=== PATIENT | female | born 1945 | race Caucasian/White ===

== ENCOUNTER 2018-01-03 17:07 | Inpatient (IN) ==
[2018-01-03] MEDS ORDERED: cloNIDine HCl 0.1 MG TABLET PO PRN (19:37)
[2018-01-03] MEDS: *HR* OxyCODONE/APAP 5/325 TABLET PO SCH (21:26)
[2018-01-03] MEDS: Gabapentin 300 MG CAPSULE PO SCH (21:26)
[2018-01-03] MEDS: hydrALAZINE 25 MG TABLET PO SCH (21:26)
[2018-01-03] MEDS: Lisinopril 20 MG TABLET PO SCH (21:26)
[2018-01-03] MEDS: *HR* Nateglinide 120 MG TABLET PO SCH (21:27)
[2018-01-03] MEDS ORDERED: Insulin DETEMIR 100 UNIT/ML per UNIT SQ ONE (22:15)
[2018-01-03] MEDS: *HR* OxyCODONE Immed Rel 5 MG TABLET PO PRN (22:25)
[2018-01-04] MEDS: *HR* OxyCODONE/APAP 5/325 TABLET PO SCH ×5 (01:14→20:59)
[2018-01-04] MEDS: Ondansetron ODT 4 MG TAB.RAPDIS PO SCH ×3 (01:14→16:35)
[2018-01-04] MEDS: hydrALAZINE 25 MG TABLET PO SCH ×2 (08:17→21:00)
[2018-01-04] MEDS: Cyanocobalamin (B-12) 1,000 MCG TABLET PO SCH (08:18)
[2018-01-04] MEDS: Cholecalciferol (D-3) 1,000 UNIT TABLET PO SCH (08:18)
[2018-01-04] MEDS: Ascorbic Acid 500 MG TABLET PO SCH (08:18)
[2018-01-04] MEDS: *HR* Nateglinide 120 MG TABLET PO SCH ×3 (08:18→16:35)
[2018-01-04] MEDS: Lisinopril 20 MG TABLET PO SCH ×2 (08:19→21:00)
[2018-01-04] MEDS: Gabapentin 300 MG CAPSULE PO SCH ×2 (08:19→21:00)
[2018-01-04] MEDS: Fluticasone Propionate Nasal 50 MCG/SPRAY BOTTLE NS SCH (08:20)
[2018-01-04] MEDS ORDERED: DOXYCYCLINE HYCLATE 50 MG PO SCH (09:00)
[2018-01-04] MEDS: Tiotropium 18 MCG inhalation IH SCH (10:01)
[2018-01-04] MEDS: Beclomethasone 80mcg MDI IH SCH ×2 (10:01→22:30)
[2018-01-04] MEDS: *HR* OxyCODONE Immed Rel 5 MG TABLET PO PRN (10:17)
--- NOTE | 2018-01-04 12:26 | Internal Med History&Physical ---
Date of Encounter: 01/04/18 Time of Encounter: 11:50 Assessment and Plan (1) Lumbar stenosis Current visit: Yes Status: Acute Status post L4-5 interbody fusion. PT and OT evaluations with ongoing intervention have been ordered. Qualifiers: Neurogenic claudication status: unspecified Qualified Code(s): M48.061 - Spinal stenosis, lumbar region without neurogenic claudication (2) CKD (chronic kidney disease) stage 3, GFR 30-59 ml/min Current visit: Yes Status: Chronic Monitor renal indices as needed. (3) Hypertension Current visit: Yes Status: Chronic Continue chlorthalidone, clonidine, hydralazine, lisinopril, and Bystolic. Qualifiers: Hypertension type: essential hypertension Qualified Code(s): I10 - Essential (primary) hypertension (4) DM type 2 (diabetes mellitus, type 2) Current visit: Yes Status: Chronic Hemoglobin A1c was 7.1% on 12/21/2017. Continue Levemir/Lantus and Starlix. Qualifiers: Diabetes mellitus terminal operator insulin use: with terminal operator use Diabetes mellitus complication status: with kidney complications Diabetes mellitus complication detail: with chronic kidney disease Chronic kidney disease stage : stage 3 (moderate) Qualified Code(s): E11.22 - Type 2 diabetes mellitus with diabetic chronic kidney disease; N18.3 - Chronic kidney disease, stage 3 ( moderate); Z79.4 - MCFP (current) use of insulin Internal Medicine - H&P: HPI Chief complaint: Back surgery Admitted From: Hospital to Hospital Transfer Plans for Post Hospital Care: Home History of present illness: Ms. Dye is a 72 year old female who was transferred to [facility] swing bed after a December 29 [facility] hospitalization for posterior lumbar interbody fusion L4- L5. Her postop course was unremarkable and she was admitted for rehabilitation therapy prior to returning home. Musculoskeletal history is significant for left humerus fracture with repair 2009. She denies gout or other bone joint or muscle disorders. Past Med Surg Social Fam HX - Past Medical History Medical history: arthritis, CHF, CVA, diabetes, GERD, hypertension, kidney stones, migraine, RA, renal disease, other Additional medical history: stroke,cerebralvascular disease,osteoarthritis, vision problems,legally blind,low back pain,disc herniation; Stage 3 Kidney failure Psychiatric history: anxiety, depression - Past Surgical History Surgical History: appendectomy, cholecystectomy, hysterectomy Additional surgical history: gastric bypass,small intestine removed,EGD/ colonoscopy,carpal tunnel bilateral,eye surgery bilateral - Social History Smoking Status: Former smoker Smokeless Tobacco Status: No Alcohol use: none Drug use: none - Family History Sister Living Status: Hx Family Cancer: Yes (Mets) Father Living Status: Hx Family Cancer: Yes (Liver) Hx Family Endocrine Disorder: Yes (DM) Mother Living Status: Hx Family Cardiac Disorders: Yes (AK) Hx Family Endocrine Disorder: Yes (DM) Internal Medicine - H&P: Meds Gabapentin [Neurontin] 600 mg PO BID 08/11/15 [History] Insulin Glargine,Hum.rec.anlog [Lantus Solostar] 10 unit SQ HS 08/11/15 [History ] Oxycodone HCl/Acetaminophen [Percocet 5-325 mg Tablet] 1 tab PO 5XD 08/11/15 [ History] Ascorbic Acid [Vitamin C] 1,000 mg PO DAILY 01/16/16 [History] Calcitriol 0.5 mcg PO DAILY 01/16/16 [History] Cholecalciferol (D-3) [Vitamin D] 5,000 unit PO DAILY 01/16/16 [History] Cyanocobalamin (Vitamin B-12) [Vitamin B12] 1,000 mcg PO DAILY 01/16/16 [History ] Escitalopram [Lexapro] 20 mg PO DAILY 01/16/16 [History] Esomeprazole Magnesium [Nexium] 40 mg PO DAILY 01/16/16 [History] Lisinopril [Zestril] 40 mg PO BID 01/16/16 [History] Nebivolol HCl [Bystolic] 20 mg PO DAILY 01/16/16 [History] Tiotropium [Spiriva] 1 cap IH DAILY 01/16/16 [History] Ferrous Sulfate [Iron] 325 mg PO DAILY 01/19/16 [History] Lipase/Protease/Amylase [Creon Dr 12,000 Units Capsule] 1 each PO TID 01/19/16 [ History] Albuterol Sulfate [Proair Hfa] 1 puff IH PRN PRN 06/23/17 [History] DULoxetine [Cymbalta] 60 mg PO DAILY 06/23/17 [History] Doxycycline Hyclate [Morgidox] 50 mg PO DAILY 06/23/17 [History] Fluticasone Propionate Nasal [Flonase] 1 spray DAILY 06/23/17 [History] Nateglinide [Starlix] 60 mg PO TID 06/23/17 [History] Ondansetron ODT [Zofran ODT] 4 mg PO Q8HR #10 tab.rapdis 06/23/17 [Rx] Potassium Chloride [Klor-Con] 20 meq PO DAILY 06/23/17 [History] cloNIDine HCl [CloNIDine HCl] 0.1 mg PO BID PRN 06/23/17 [History] hydrALAZINE [HydrALAZINE] 50 mg PO BID 06/23/17 [History] Aspirin/Dipyridamole [Aggrenox 25 mg-200 mg Capsule] 1 cap PO BID 12/30/17 [ History] Chlorthalidone 25 mg PO DAILY 12/30/17 [History] Mometasone Furoate [Asmanex] 220 mcg IH DAILY 12/30/17 [History] Polyethylene Glycol 3350 [MiraLAX] 17 gm PO DAILY 12/30/17 [History] OxyCODONE Immed Rel [Roxicodone 5 MG] 5 mg PO Q4HR PRN 01/03/18 [History] 3 Allergy/AdvReac Type Severity Reaction Status Date / Time atorvastatin [From Lipitor] AdvReac See Verified 12/21/17 10:27 Comments nifedipine [From Procardia] AdvReac See Verified 12/21/17 10:27 Comments All Systems PM: A 10-system review of systems was performed and is negative for pertinent findings except as documented above in the HPI. Review of systems: Gen.: She states her weight has been stable the past few months Cardiovascular: She has history of hypertension. She reports a diagnosis of heart failure. An echocardiogram 10/26/2017 showed LVEF of 60-65%. The interventricular septum and posterior wall thickness measurements were 1.20 and 1.30 cm respectively. E/A ratio was 1.0. No significant valvular abnormalities were noted. She denies DVT or pulmonary embolus. She does not get chest pain on exertion. Respiratory: She smoked from age 17 until entering the hospital last week. She smoked up to one pack per day. She denies PFTs. She is on Spiriva and Pro Air but was unaware of a diagnosis of COPD or asthma. She does not use home oxygen. GI: She has had cholecystectomy. She reports chronic diarrhea for several months to years. She had gastric bypass surgery 2005. She is on Creon for presumed exocrine pancreatic insufficiency although she denies awareness of that diagnosis. She reports her most recent colonoscopy was 2015. She denies other disorders of her liver or exocrine pancreas. : She has chronic kidney disease stage III and follows with a security lead. She denies other kidney or bladder disorders. Neurologic: She reports several strokes with most recent one in 1999 which left her with "arm weakness". She is able to walk with a cane or walker at home. She denies seizures. She has subtotal blindness. Endocrine: She was diagnosed with DM 2 in 1982. She denies thyroid disease or hyperlipidemia. Hematology/oncology: She has history of anemia but denies internal malignancies or other blood disorders. Psychiatric: She has anxiety and depression but denies other mental health issues. Musko skeletal: As per history of present illness - Constitutional Vitals: Temp Pulse Resp BP Pulse Ox 98.8 F 78 16 157/73 89 01/04/18 07:17 01/04/18 07:17 01/04/18 10:01 01/04/18 07:17 01/04/18 10:01 Exam: Gen.: She is a well-developed well-nourished female sitting in a chair at bedside who appears in no acute distress HEENT: Head is atraumatic and normocephalic. Eyes: EOMI. There is no scleral icterus. Mouth: Mucosa is moist. Neck: Supple and nontender. There is no thyromegaly or adenopathy noted. Heart: Regular without murmurs gallops or ectopics Lungs: No wheezes or crackles are heard. Abdomen: Soft and nontender. No masses or guarding are noted. Extremities: There is no cyanosis edema or clubbing noted. Dorsalis pedis and posterior tibial pulses are trace palpable bilaterally. Her feet are warm to touch. Neurologic: Mental status: She is talkative and a good historian. Cranial nerves: Smile is symmetric. Forehead wrinkles bilaterally. Tongue protrudes midline. EOMI. Motor: There is no pronator drift. Cerebellar: Finger to nose is intact bilaterally. Skin: Warm and dry
[2018-01-04] MEDS: Insulin DETEMIR 100 UNIT/ML X5UNITS SQ SCH (20:59)
[2018-01-04] MEDS: Lactobacillus 1 EACH CAP.SPRINK PO SCH (20:59)
[2018-01-05] MEDS: *HR* OxyCODONE/APAP 5/325 TABLET PO SCH ×5 (01:57→21:26)
[2018-01-05] MEDS: Ondansetron ODT 4 MG TAB.RAPDIS PO SCH ×3 (01:58→17:54)
[2018-01-05] MEDS: *HR* OxyCODONE Immed Rel 5 MG TABLET PO PRN ×2 (06:29→10:29)
[2018-01-05 06:49] LABS: Basophils % 0.4 %; Eosinophils # 0.4 K/mcL (0.0-0.6); Eosinophils % 5.4 %; Hematocrit 38.1 % (35.3-44.9); Hemoglobin 12.3 g/dL (11.5-15.4); Immature Granulocytes % 0.4 % (0-4); Lymphocytes # 2.1 K/mcL (0.6-4.6); Lymphocytes % 28.3 %; Mean Corpuscular HGB Conc 32.3 g/dL (31.6-35.5); Mean Corpuscular Hemoglobin 33.2 pg (28.0-33.3); Mean Platelet Volume 9.9 fL (9.4-12.4); Monocytes # 0.7 K/mcL (0.0-1.3); Monocytes % 9.5 %; Neutrophils # 4.2 K/mcL (1.6-8.9); Platelet Count 207 K/mcL (140-400); Red Cell Distribution Width 12.5 % (11.5-14.5)
[2018-01-05 07:14] LABS: Calcium 9.1 mg/dL (8.6-10.3); Potassium 3.7 mEq/L (3.5-5.1)
[2018-01-05] MEDS: Fluticasone Propionate Nasal 50 MCG/SPRAY BOTTLE NS SCH (08:34)
[2018-01-05] MEDS: *HR* Nateglinide 120 MG TABLET PO SCH ×3 (08:36→17:55)
[2018-01-05] MEDS: Cyanocobalamin (B-12) 1,000 MCG TABLET PO SCH (08:37)
[2018-01-05] MEDS: Lactobacillus 1 EACH CAP.SPRINK PO SCH ×2 (08:38→21:26)
[2018-01-05] MEDS: Gabapentin 300 MG CAPSULE PO SCH ×2 (08:40→21:26)
[2018-01-05] MEDS: Cholecalciferol (D-3) 1,000 UNIT TABLET PO SCH (08:40)
[2018-01-05] MEDS: hydrALAZINE 25 MG TABLET PO SCH ×2 (08:40→21:26)
[2018-01-05] MEDS: Lisinopril 20 MG TABLET PO SCH ×2 (08:40→21:26)
[2018-01-05] MEDS: Ascorbic Acid 500 MG TABLET PO SCH (08:40)
[2018-01-05] MEDS: Beclomethasone 80mcg MDI IH SCH ×2 (10:30→21:51)
[2018-01-05] MEDS: Tiotropium 18 MCG inhalation IH SCH (10:32)
[2018-01-05 13:00] LABS: Thyroid Stimulating Hormone 0.93 mcIU/mL (0.340-5.600)
--- NOTE | 2018-01-05 17:56 | Internal Med Progress Note ---
Date of Encounter: 01/05/18 Time of Encounter: 17:48 - Assessment and plan (1) Lumbar stenosis Current Visit: Yes Status: Acute Assessment and plan: January 05. Continue therapy interventions. Will order scheduled oral Tylenol and BenGay/Lidoderm topically Qualifiers: Neurogenic claudication status: unspecified Qualified Code(s): M48.061 - Spinal stenosis, lumbar region without neurogenic claudication (2) CKD (chronic kidney disease) stage 3, GFR 30-59 ml/min Current Visit: Yes Status: Chronic Assessment and plan: January 05. Monitor renal indices. (3) Hypertension Current Visit: Yes Status: Chronic Assessment and plan: January 05. Continue chlorthalidone, clonidine, hydralazine, lisinopril, and Bystolic Qualifiers: Hypertension type: essential hypertension Qualified Code(s): I10 - Essential (primary) hypertension (4) DM type 2 (diabetes mellitus, type 2) Current Visit: Yes Status: Chronic Assessment and plan: January 05. Hemoglobin A1c was 7.1% on 12/21/2017. Continue Levemir/Lantus and Starlix Qualifiers: Diabetes mellitus halfway insulin use: with halfway use Diabetes mellitus complication status: with kidney complications Diabetes mellitus complication detail: with chronic kidney disease Chronic kidney disease stage : stage 3 (moderate) Qualified Code(s): E11.22 - Type 2 diabetes mellitus with diabetic chronic kidney disease; N18.3 - Chronic kidney disease, stage 3 ( moderate); Z79.4 - oysterman (current) use of insulin - Subjective Interval history: January 05. She has no new complaints. - Constitutional Vitals: Temp Pulse Resp BP Pulse Ox 98.6 F 86 16 148/86 98 01/05/18 07:07 01/05/18 07:07 01/05/18 10:32 01/05/18 07:07 01/05/18 10:32 Exam: She is resting comfortably in bed and appears in no acute distress. Her affect is overall cheerful. I reviewed her medications and lab results. Internal Medicine: Result - Labs CBC & Chem 7: 01/05/18 06:30 01/05/18 06:30 Labs: Short CBC 01/05/18 Range/Units 06:30 WBC 7.5 (4.3-11.1) K/mcL Hgb 12.3 D (11.5-15.4) g/dL Hct 38.1 (35.3-44.9) % Plt Count 207 (140-400) K/mcL Neutrophils # 4.2 (1.6-8.9) K/mcL BMP 01/05/18 06:30 Sodium 136 Potassium 3.7 Chloride 98 Carbon Dioxide 33 H BUN 33 H Creatinine 1.42 H Glucose 167 H Calcium 9.1 Consult Discharge Plan - Plan Referrals: Zahra Alvarez, SILK SCREEN REPAIRER [Primary Care Provider] - 1 week
[2018-01-05] MEDS: Insulin DETEMIR 100 UNIT/ML X5UNITS SQ SCH (21:26)
[2018-01-05] MEDS: Methyl Salicylate/Menthol 28 GM TUBE TP SCH (21:26)
[2018-01-06] MEDS: Ondansetron ODT 4 MG TAB.RAPDIS PO SCH ×3 (03:32→15:29)
[2018-01-06] MEDS: *HR* OxyCODONE/APAP 5/325 TABLET PO SCH ×5 (03:37→20:16)
[2018-01-06] MEDS: *HR* OxyCODONE Immed Rel 5 MG TABLET PO PRN ×3 (05:19→18:10)
[2018-01-06] MEDS: Gabapentin 300 MG CAPSULE PO SCH ×2 (08:48→20:16)
[2018-01-06] MEDS: Cholecalciferol (D-3) 1,000 UNIT TABLET PO SCH (08:52)
[2018-01-06] MEDS: Lisinopril 20 MG TABLET PO SCH ×2 (08:52→20:16)
[2018-01-06] MEDS: hydrALAZINE 25 MG TABLET PO SCH ×2 (08:53→20:15)
[2018-01-06] MEDS: Ascorbic Acid 500 MG TABLET PO SCH (08:53)
[2018-01-06] MEDS: Lactobacillus 1 EACH CAP.SPRINK PO SCH ×2 (08:53→20:15)
[2018-01-06] MEDS: Fluticasone Propionate Nasal 50 MCG/SPRAY BOTTLE NS SCH (08:54)
[2018-01-06] MEDS: Cyanocobalamin (B-12) 1,000 MCG TABLET PO SCH (08:54)
[2018-01-06] MEDS: *HR* Nateglinide 120 MG TABLET PO SCH ×3 (08:54→15:29)
[2018-01-06] MEDS: Methyl Salicylate/Menthol 28 GM TUBE TP SCH (08:55)
[2018-01-06] MEDS: Beclomethasone 80mcg MDI IH SCH ×2 (09:51→22:22)
[2018-01-06] MEDS: Tiotropium 18 MCG inhalation IH SCH (09:51)
[2018-01-06] MEDS ORDERED: Ondansetron ODT 4 MG TAB.RAPDIS PO PRN (16:48)
[2018-01-06] MEDS: Insulin DETEMIR 100 UNIT/ML X5UNITS SQ SCH (20:42)
[2018-01-07] MEDS: *HR* OxyCODONE/APAP 5/325 TABLET PO SCH ×5 (03:42→22:34)
[2018-01-07] MEDS: *HR* OxyCODONE Immed Rel 5 MG TABLET PO PRN ×2 (03:44→22:19)
[2018-01-07] MEDS: *HR* Nateglinide 120 MG TABLET PO SCH ×3 (09:07→16:48)
[2018-01-07] MEDS: Gabapentin 300 MG CAPSULE PO SCH ×2 (09:09→22:19)
[2018-01-07] MEDS: Ascorbic Acid 500 MG TABLET PO SCH (09:09)
[2018-01-07] MEDS: Lactobacillus 1 EACH CAP.SPRINK PO SCH (09:10)
[2018-01-07] MEDS: hydrALAZINE 25 MG TABLET PO SCH ×2 (09:10→22:19)
[2018-01-07] MEDS: Cholecalciferol (D-3) 1,000 UNIT TABLET PO SCH (09:11)
[2018-01-07] MEDS: Lisinopril 20 MG TABLET PO SCH ×2 (09:11→22:19)
[2018-01-07] MEDS: Cyanocobalamin (B-12) 1,000 MCG TABLET PO SCH (09:14)
[2018-01-07] MEDS: Methyl Salicylate/Menthol 28 GM TUBE TP SCH (09:15)
[2018-01-07] MEDS: Fluticasone Propionate Nasal 50 MCG/SPRAY BOTTLE NS SCH (09:15)
[2018-01-07] MEDS: Tiotropium 18 MCG inhalation IH SCH (09:27)
[2018-01-07] MEDS: Beclomethasone 80mcg MDI IH SCH ×2 (09:27→21:31)
--- NOTE | 2018-01-07 14:30 | Internal Med Progress Note ---
Date of Encounter: 01/07/18 Time of Encounter: 14:24 - Assessment and plan (1) Lumbar stenosis Current Visit: Yes Status: Acute Assessment and plan: January 05. Continue therapy interventions. Will order scheduled oral Tylenol and BenGay/Lidoderm topically Qualifiers: Neurogenic claudication status: unspecified Qualified Code(s): M48.061 - Spinal stenosis, lumbar region without neurogenic claudication (2) CKD (chronic kidney disease) stage 3, GFR 30-59 ml/min Current Visit: Yes Status: Chronic Assessment and plan: January 05. Monitor renal indices. (3) Hypertension Current Visit: Yes Status: Chronic Assessment and plan: January 05. Continue chlorthalidone, clonidine, hydralazine, lisinopril, and Bystolic Qualifiers: Hypertension type: essential hypertension Qualified Code(s): I10 - Essential (primary) hypertension (4) DM type 2 (diabetes mellitus, type 2) Current Visit: Yes Status: Chronic Assessment and plan: January 05. Hemoglobin A1c was 7.1% on 12/21/2017. Continue Levemir/Lantus and Starlix January 07. Accu-Chek stable. Continue present regimen Qualifiers: Diabetes mellitus roasterman insulin use: with roasterman use Diabetes mellitus complication status: with kidney complications Diabetes mellitus complication detail: with chronic kidney disease Chronic kidney disease stage : stage 3 (moderate) Qualified Code(s): E11.22 - Type 2 diabetes mellitus with diabetic chronic kidney disease; N18.3 - Chronic kidney disease, stage 3 ( moderate); Z79.4 - technician terminal and repeater (current) use of insulin - Subjective Interval history: January 05. She has no new complaints. January 07. She has no new complaints and feels better. - Constitutional Vitals: Temp Pulse Resp BP Pulse Ox 98.6 F 86 16 180/85 94 01/07/18 07:42 01/07/18 07:42 01/07/18 09:28 01/07/18 07:42 01/07/18 09:28 Exam: She is lying in bed resting comfortably. Her affect is bright and cheerful. I reviewed her medications and lab results. Internal Medicine: Result - Labs CBC & Chem 7: 01/05/18 06:30 01/05/18 06:30 Consult Discharge Plan - Plan Referrals: Zahra Alvarez, VENUS [Primary Care Provider] - 01/19/18 4:00 pm
[2018-01-07] MEDS: Insulin DETEMIR 100 UNIT/ML X5UNITS SQ SCH (22:22)
[2018-01-08] MEDS: *HR* OxyCODONE/APAP 5/325 TABLET PO SCH ×5 (00:51→22:21)
[2018-01-08] MEDS: Ascorbic Acid 500 MG TABLET PO SCH (07:49)
[2018-01-08] MEDS: Lisinopril 20 MG TABLET PO SCH ×2 (07:50→22:21)
[2018-01-08] MEDS: *HR* Nateglinide 120 MG TABLET PO SCH ×3 (07:51→16:35)
[2018-01-08] MEDS: Cyanocobalamin (B-12) 1,000 MCG TABLET PO SCH (07:53)
[2018-01-08] MEDS: hydrALAZINE 25 MG TABLET PO SCH ×2 (07:55→22:23)
[2018-01-08] MEDS: Cholecalciferol (D-3) 1,000 UNIT TABLET PO SCH (07:55)
[2018-01-08] MEDS: Fluticasone Propionate Nasal 50 MCG/SPRAY BOTTLE NS SCH (08:00)
[2018-01-08] MEDS: Methyl Salicylate/Menthol 28 GM TUBE TP SCH (08:00)
[2018-01-08] MEDS: Gabapentin 300 MG CAPSULE PO SCH ×2 (08:02→22:22)
[2018-01-08] MEDS: *HR* OxyCODONE Immed Rel 5 MG TABLET PO PRN (09:51)
[2018-01-08] MEDS: Beclomethasone 80mcg MDI IH SCH ×2 (10:01→22:27)
[2018-01-08] MEDS: Tiotropium 18 MCG inhalation IH SCH (10:02)
[2018-01-08] MEDS ORDERED: *HR* FentaNYL PATCH 12 MCG PATCH TD ONE (13:36)
[2018-01-08] MEDS: Insulin DETEMIR 100 UNIT/ML X5UNITS SQ SCH (22:27)
[2018-01-09] MEDS: *HR* OxyCODONE/APAP 5/325 TABLET PO SCH ×6 (00:02→23:36)
[2018-01-09] MEDS: *HR* OxyCODONE Immed Rel 5 MG TABLET PO PRN ×3 (01:25→10:33)
[2018-01-09] MEDS: Fluticasone Propionate Nasal 50 MCG/SPRAY BOTTLE NS SCH (08:37)
[2018-01-09] MEDS: Cyanocobalamin (B-12) 1,000 MCG TABLET PO SCH (08:38)
[2018-01-09] MEDS: *HR* Nateglinide 120 MG TABLET PO SCH ×3 (08:40→17:00)
[2018-01-09] MEDS: Gabapentin 300 MG CAPSULE PO SCH ×3 (08:41→20:20)
[2018-01-09] MEDS: Ascorbic Acid 500 MG TABLET PO SCH (08:42)
[2018-01-09] MEDS: Cholecalciferol (D-3) 1,000 UNIT TABLET PO SCH (08:42)
[2018-01-09] MEDS: Lisinopril 20 MG TABLET PO SCH ×2 (08:42→20:21)
[2018-01-09] MEDS: hydrALAZINE 25 MG TABLET PO SCH ×2 (08:42→20:21)
[2018-01-09] MEDS: Methyl Salicylate/Menthol 28 GM TUBE TP SCH (08:52)
[2018-01-09] MEDS: Beclomethasone 80mcg MDI IH SCH ×2 (10:39→22:35)
[2018-01-09] MEDS: Tiotropium 18 MCG inhalation IH SCH (10:42)
--- NOTE | 2018-01-09 12:04 | Internal Med Progress Note ---
Date of Encounter: 01/09/18 Time of Encounter: 11:55 - Assessment and plan (1) Lumbar stenosis Current Visit: Yes Status: Acute Assessment and plan: January 05. Continue therapy interventions. Will order scheduled oral Tylenol and BenGay/Lidoderm topically January 09. Increase Cymbalta and gabapentin. Continue Duragesic, scheduled Tylenol, and prn analgesics also. Qualifiers: Neurogenic claudication status: unspecified Qualified Code(s): M48.061 - Spinal stenosis, lumbar region without neurogenic claudication (2) CKD (chronic kidney disease) stage 3, GFR 30-59 ml/min Current Visit: Yes Status: Chronic Assessment and plan: January 05. Monitor renal indices. (3) Hypertension Current Visit: Yes Status: Chronic Assessment and plan: January 05. Continue chlorthalidone, clonidine, hydralazine, lisinopril, and Bystolic Qualifiers: Hypertension type: essential hypertension Qualified Code(s): I10 - Essential (primary) hypertension (4) DM type 2 (diabetes mellitus, type 2) Current Visit: Yes Status: Chronic Assessment and plan: January 05. Hemoglobin A1c was 7.1% on 12/21/2017. Continue Levemir/Lantus and Starlix January 07. Accu-Chek stable. Continue present regimen Qualifiers: Diabetes mellitus alf insulin use: with terminal press operator use Diabetes mellitus complication status: with kidney complications Diabetes mellitus complication detail: with chronic kidney disease Chronic kidney disease stage : stage 3 (moderate) Qualified Code(s): E11.22 - Type 2 diabetes mellitus with diabetic chronic kidney disease; N18.3 - Chronic kidney disease, stage 3 ( moderate); Z79.4 - half-way (current) use of insulin (5) Insomnia Current Visit: Yes Status: Acute Assessment and plan: January 09. Increased analgesics as per above. Add trazodone. Qualifiers: Insomnia type: unspecified Qualified Code(s): G47.00 - Insomnia, unspecified - Subjective Interval history: January 05. She has no new complaints. January 07. She has no new complaints and feels better. January 09. She complains of pain in her low back and legs. She states she is not sleeping well at night. - Constitutional Vitals: Temp Pulse Resp BP Pulse Ox 98.5 F 66 18 200/83 96 01/09/18 07:09 01/09/18 07:09 01/09/18 10:39 01/09/18 07:09 01/09/18 10:39 Exam: She is sitting on the side of bed eating lunch and appears in no acute distress. Her affect is overall cheerful. I reviewed her medications and lab results. Internal Medicine: Result - Labs CBC & Chem 7: 01/05/18 06:30 01/05/18 06:30 Consult Discharge Plan - Plan Referrals: Zahra Alvarez CNP [Primary Care Provider] - 01/19/18 4:00 pm
[2018-01-09] MEDS: *HR* FentaNYL PATCH 12 MCG PATCH TD SCH (12:54)
[2018-01-09] MEDS: traZODone 50 MG TABLET PO SCH (20:21)
[2018-01-09] MEDS: Insulin DETEMIR 100 UNIT/ML X5UNITS SQ SCH (20:24)
[2018-01-10] MEDS: Gabapentin 300 MG CAPSULE PO SCH ×3 (04:38→21:28)
[2018-01-10 06:20] LABS: Basophils % 0.3 %; Eosinophils # 0.3 K/mcL (0.0-0.6); Eosinophils % 4.8 %; Hematocrit 35.1 % (35.3-44.9); Hemoglobin 11.5 g/dL (11.5-15.4); Immature Granulocytes % 0.3 % (0-4); Lymphocytes # 1.5 K/mcL (0.6-4.6); Lymphocytes % 26.3 %; Mean Corpuscular HGB Conc 32.8 g/dL (31.6-35.5); Mean Corpuscular Hemoglobin 33.6 pg (28.0-33.3); Mean Corpuscular Volume 102.6 fL (83.0-100.0); Mean Platelet Volume 10.1 fL (9.4-12.4); Monocytes # 0.4 K/mcL (0.0-1.3); Monocytes % 7.6 %; Neutrophils # 3.5 K/mcL (1.6-8.9); Platelet Count 205 K/mcL (140-400); Red Blood Count 3.42 M/mcL (3.82-4.97); Red Cell Distribution Width 12.4 % (11.5-14.5); Segmented Neutrophils % 60.7 %
[2018-01-10 06:36] LABS: Calcium 9.2 mg/dL (8.6-10.3); Potassium 3.7 mEq/L (3.5-5.1)
[2018-01-10] MEDS: Cyanocobalamin (B-12) 1,000 MCG TABLET PO SCH (09:25)
[2018-01-10] MEDS: Ascorbic Acid 500 MG TABLET PO SCH (09:25)
[2018-01-10] MEDS: Fluticasone Propionate Nasal 50 MCG/SPRAY BOTTLE NS SCH (09:25)
[2018-01-10] MEDS: *HR* OxyCODONE/APAP 5/325 TABLET PO SCH ×4 (09:25→20:00)
[2018-01-10] MEDS: hydrALAZINE 25 MG TABLET PO SCH ×2 (09:25→21:28)
[2018-01-10] MEDS: *HR* Nateglinide 120 MG TABLET PO SCH ×3 (09:25→17:15)
[2018-01-10] MEDS: Lisinopril 20 MG TABLET PO SCH ×2 (09:25→21:28)
[2018-01-10] MEDS: Cholecalciferol (D-3) 1,000 UNIT TABLET PO SCH (09:25)
[2018-01-10] MEDS: Tiotropium 18 MCG inhalation IH SCH (09:27)
[2018-01-10] MEDS: Beclomethasone 80mcg MDI IH SCH ×2 (09:27→22:17)
[2018-01-10 09:38] LABS: Folate 10.8 ng/mL (3.0-16.0)
[2018-01-10] MEDS: Methyl Salicylate/Menthol 28 GM TUBE TP SCH (09:44)
[2018-01-10] MEDS: *HR* OxyCODONE Immed Rel 5 MG TABLET PO PRN ×2 (11:07→21:27)
[2018-01-10] MEDS: traZODone 50 MG TABLET PO SCH (21:27)
[2018-01-10] MEDS: Insulin DETEMIR 100 UNIT/ML X5UNITS SQ SCH (21:32)
[2018-01-11] MEDS: *HR* OxyCODONE/APAP 5/325 TABLET PO SCH ×5 (01:27→21:09)
[2018-01-11] MEDS: *HR* OxyCODONE Immed Rel 5 MG TABLET PO PRN ×2 (04:07→10:06)
[2018-01-11] MEDS: Gabapentin 300 MG CAPSULE PO SCH ×3 (06:27→21:08)
[2018-01-11] MEDS: *HR* Nateglinide 120 MG TABLET PO SCH ×3 (08:41→16:24)
[2018-01-11] MEDS: hydrALAZINE 25 MG TABLET PO SCH ×2 (08:41→21:08)
[2018-01-11] MEDS: Ascorbic Acid 500 MG TABLET PO SCH (08:41)
[2018-01-11] MEDS: Lisinopril 20 MG TABLET PO SCH ×2 (08:42→21:08)
[2018-01-11] MEDS: Cyanocobalamin (B-12) 1,000 MCG TABLET PO SCH (08:43)
[2018-01-11] MEDS: Cholecalciferol (D-3) 1,000 UNIT TABLET PO SCH (08:43)
[2018-01-11] MEDS: Fluticasone Propionate Nasal 50 MCG/SPRAY BOTTLE NS SCH (08:43)
[2018-01-11] MEDS: Beclomethasone 80mcg MDI IH SCH ×2 (09:49→22:02)
[2018-01-11] MEDS: Tiotropium 18 MCG inhalation IH SCH (09:49)
[2018-01-11] MEDS: Methyl Salicylate/Menthol 28 GM TUBE TP SCH (10:09)
[2018-01-11] MEDS: traZODone 50 MG TABLET PO SCH (21:08)
[2018-01-11] MEDS: Insulin DETEMIR 100 UNIT/ML X5UNITS SQ SCH (21:09)
[2018-01-12] MEDS: *HR* OxyCODONE/APAP 5/325 TABLET PO SCH ×3 (00:52→11:41)
[2018-01-12 06:27] VITALS: BP 157/71
[2018-01-12] MEDS: Gabapentin 300 MG CAPSULE PO SCH ×2 (06:30→11:40)
[2018-01-12] MEDS: Lisinopril 20 MG TABLET PO SCH (08:35)
[2018-01-12] MEDS: Cyanocobalamin (B-12) 1,000 MCG TABLET PO SCH (08:38)
[2018-01-12] MEDS: Cholecalciferol (D-3) 1,000 UNIT TABLET PO SCH (08:38)
[2018-01-12] MEDS: Ascorbic Acid 500 MG TABLET PO SCH (08:38)
[2018-01-12] MEDS: *HR* Nateglinide 120 MG TABLET PO SCH ×2 (08:38→11:41)
[2018-01-12] MEDS: hydrALAZINE 25 MG TABLET PO SCH (08:39)
[2018-01-12] MEDS: Methyl Salicylate/Menthol 28 GM TUBE TP SCH (08:48)
[2018-01-12] MEDS: Fluticasone Propionate Nasal 50 MCG/SPRAY BOTTLE NS SCH (08:48)
[2018-01-12] MEDS: Beclomethasone 80mcg MDI IH SCH (10:41)
[2018-01-12] MEDS: Tiotropium 18 MCG inhalation IH SCH (10:41)
[2018-01-12] MEDS: *HR* FentaNYL PATCH 12 MCG PATCH TD SCH (11:42)
--- NOTE | 2018-01-12 12:49 | Discharge Summary ---
Date of Encounter: 01/12/18 Time of Encounter: 12:00 - Discharge Diagnosis (1) Lumbar stenosis Priority: Primary Status: Acute Qualifiers: Neurogenic claudication status: unspecified Qualified Code(s): M48.061 - Spinal stenosis, lumbar region without neurogenic claudication (2) CKD (chronic kidney disease) stage 3, GFR 30-59 ml/min Priority: Secondary Status: Chronic (3) Hypertension Priority: Secondary Status: Chronic Qualifiers: Hypertension type: essential hypertension Qualified Code(s): I10 - Essential (primary) hypertension (4) DM type 2 (diabetes mellitus, type 2) Priority: Secondary Status: Chronic Qualifiers: Diabetes mellitus ferry terminal agent insulin use: with ferry terminal agent use Diabetes mellitus complication status: with kidney complications Diabetes mellitus complication detail: with chronic kidney disease Chronic kidney disease stage : stage 3 (moderate) Qualified Code(s): E11.22 - Type 2 diabetes mellitus with diabetic chronic kidney disease; N18.3 - Chronic kidney disease, stage 3 ( moderate); Z79.4 - intermodal customer service (current) use of insulin (5) Insomnia Priority: Secondary Status: Acute Qualifiers: Insomnia type: unspecified Qualified Code(s): G47.00 - Insomnia, unspecified Hospital course: Ms. Dye is a 72 year old female who was transferred to [facility] swing bed after a December 29 [facility] hospitalization for posterior lumbar interbody fusion L4- L5. Her postop course was unremarkable and she was admitted for rehabilitation therapy prior to returning home. Initial orders were written by the discharging physicians at [facility]. I saw her on January 04 and performed a swing bed history and physical. Physical therapy and occupational therapy evaluations with ongoing intervention were done. She made satisfactory progress. She will continue with home health services at discharge. She will follow with her PCP within 1 week and her spine surgeon as directed. - Time Spent with Patient Total time spent providing and/or coordinating discharge services: - Discharge Medications Prescriptions: Lidocaine Patch [Lidoderm 5% patch] 1 each TP DAILY #7 adh..patch Methyl Salicylate/Menthol [Bengay] 1 appl TP DAILY #1 tube traZODone [TraZODone] 50 mg PO HS #30 tablet Home Medications: Gabapentin [Neurontin] 600 mg PO BID 08/11/15 [History] Insulin Glargine,Hum.rec.anlog [Lantus Solostar] 10 unit SQ HS 08/11/15 [History ] Ascorbic Acid [Vitamin C] 1,000 mg PO DAILY 01/16/16 [History] Calcitriol 0.5 mcg PO DAILY 01/16/16 [History] Cholecalciferol (D-3) [Vitamin D] 5,000 unit PO DAILY 01/16/16 [History] Cyanocobalamin (Vitamin B-12) [Vitamin B12] 1,000 mcg PO DAILY 01/16/16 [History ] Escitalopram [Lexapro] 20 mg PO DAILY 01/16/16 [History] Esomeprazole Magnesium [Nexium] 40 mg PO DAILY 01/16/16 [History] Lisinopril [Zestril] 40 mg PO BID 01/16/16 [History] Nebivolol HCl [Bystolic] 20 mg PO DAILY 01/16/16 [History] Tiotropium [Spiriva] 1 cap IH DAILY 01/16/16 [History] Ferrous Sulfate [Iron] 325 mg PO DAILY 01/19/16 [History] Lipase/Protease/Amylase [Creon Dr 12,000 Units Capsule] 1 each PO TID 01/19/16 [ History] Albuterol Sulfate [Proair Hfa] 1 puff IH PRN PRN 06/23/17 [History] DULoxetine [Cymbalta] 60 mg PO DAILY 06/23/17 [History] Doxycycline Hyclate [Morgidox] 50 mg PO DAILY 06/23/17 [History] Fluticasone Propionate Nasal [Flonase] 1 spray DAILY 06/23/17 [History] Nateglinide [Starlix] 60 mg PO TID 06/23/17 [History] Ondansetron ODT [Zofran ODT] 4 mg PO Q8HR #10 tab.rapdis 06/23/17 [Rx] Potassium Chloride [Klor-Con] 20 meq PO DAILY 06/23/17 [History] cloNIDine HCl [CloNIDine HCl] 0.1 mg PO BID PRN 06/23/17 [History] hydrALAZINE [HydrALAZINE] 50 mg PO BID 06/23/17 [History] Aspirin/Dipyridamole [Aggrenox 25 mg-200 mg Capsule] 1 cap PO BID 12/30/17 [ History] Chlorthalidone 25 mg PO DAILY 12/30/17 [History] Mometasone Furoate [Asmanex] 220 mcg IH DAILY 12/30/17 [History] Polyethylene Glycol 3350 [MiraLAX] 17 gm PO DAILY 12/30/17 [History] OxyCODONE Immed Rel [Roxicodone 5 MG] 5 mg PO Q4HR PRN 01/03/18 [History] Lidocaine Patch [Lidoderm 5% patch] 1 each TP DAILY #7 adh..patch 01/12/18 [Rx] Methyl Salicylate/Menthol [Bengay] 1 appl TP DAILY #1 tube 01/12/18 [Rx] traZODone [TraZODone] 50 mg PO HS #30 tablet 01/12/18 [Rx] Allergies/Adverse Reactions: 3 Allergy/AdvReac Type Severity Reaction Status Date / Time atorvastatin [From Lipitor] AdvReac See Verified 12/21/17 10:27 Comments nifedipine [From Procardia] AdvReac See Verified 12/21/17 10:27 Comments Date of admission: 01/03/18 19:17 Primary care physician: Zahra Alvarez CNP Consults: 01/03/18 19:50 Consult to Occupational Therapy [CONS] Routine Comment: Evaluate, develop and implement POC Reason for Consult: Evaluate, develop and implement POC; Post-Back surgery Does patient have active BEDREST order?: No Is patient medically & hemodynamically stable?: Yes 01/03/18 19:51 Consult to Physical Therapy [CONS] Routine Comment: Evaluate, develop and implement POC Reason for Consult: Evaluate, develop and implement POC; Post-Back surgery Does patient have active BEDREST order?: No Is patient medically & hemodynamically stable?: Yes Patient assessed for mobility or mobilized this visit?: No - Constitutional Vitals: Temp Pulse Resp BP Pulse Ox 98.9 F 62 16 157/71 94 01/12/18 06:25 01/12/18 06:25 01/12/18 06:25 01/12/18 06:25 01/12/18 06:25 - Patient Status Disposition: Home Health Service - Discharge Instructions Follow Up With: Zahra Alvarez CNP [Primary Care Provider] - 01/19/18 4:00 pm - Diet and Activity Activity: as per physical therapy Diet: diabetic diet
--- NOTE | 2018-01-12 12:53 | Physician Discharge Referral ---
Home Health/Hosp Referral Info Transfer to: Home Health Attending Provider: Joshua Provider in Charge Post Discharge: PCP Rafael) - Diagnosis (1) Lumbar stenosis Priority: Primary Status: Acute (2) CKD (chronic kidney disease) stage 3, GFR 30-59 ml/min Priority: Secondary Status: Chronic (3) Hypertension Priority: Secondary Status: Chronic (4) DM type 2 (diabetes mellitus, type 2) Priority: Secondary Status: Chronic (5) Insomnia Priority: Secondary Status: Acute - Respiratory Orders Smoking Cessation: Smoking cessation has been advised. For more information, call the [place] Tobacco Quit Line at 6-141-FSGL-NOW. - Diet/Nutrition Diet/Nutrition Orders: No Concentrated Sweets - Activity Activity Orders: Walker - Services Needed Following services are medically necessary services: Nursing, Home Health Aide, Physical Therapy, Occupational Therapy - Transfer Medications Prescriptions: Lidocaine Patch [Lidoderm 5% patch] 1 each TP DAILY #7 adh..patch Methyl Salicylate/Menthol [Bengay] 1 appl TP DAILY #1 tube traZODone [TraZODone] 50 mg PO HS #30 tablet Home Medications: Gabapentin [Neurontin] 600 mg PO BID 08/11/15 [History] Insulin Glargine,Hum.rec.anlog [Lantus Solostar] 10 unit SQ HS 08/11/15 [History ] Ascorbic Acid [Vitamin C] 1,000 mg PO DAILY 01/16/16 [History] Calcitriol 0.5 mcg PO DAILY 01/16/16 [History] Cholecalciferol (D-3) [Vitamin D] 5,000 unit PO DAILY 01/16/16 [History] Cyanocobalamin (Vitamin B-12) [Vitamin B12] 1,000 mcg PO DAILY 01/16/16 [History ] Escitalopram [Lexapro] 20 mg PO DAILY 01/16/16 [History] Esomeprazole Magnesium [Nexium] 40 mg PO DAILY 01/16/16 [History] Lisinopril [Zestril] 40 mg PO BID 01/16/16 [History] Nebivolol HCl [Bystolic] 20 mg PO DAILY 01/16/16 [History] Tiotropium [Spiriva] 1 cap IH DAILY 01/16/16 [History] Ferrous Sulfate [Iron] 325 mg PO DAILY 01/19/16 [History] Lipase/Protease/Amylase [Edda Hoffman 12,000 Units Capsule] 1 each PO TID 01/19/16 [ History] Albuterol Sulfate [Proair Hfa] 1 puff IH PRN PRN 06/23/17 [History] DULoxetine [Cymbalta] 60 mg PO DAILY 06/23/17 [History] Doxycycline Hyclate [Morgidox] 50 mg PO DAILY 06/23/17 [History] Fluticasone Propionate Nasal [Flonase] 1 spray DAILY 06/23/17 [History] Nateglinide [Starlix] 60 mg PO TID 06/23/17 [History] Ondansetron ODT [Zofran ODT] 4 mg PO Q8HR #10 tab.rapdis 06/23/17 [Rx] Potassium Chloride [Klor-Con] 20 meq PO DAILY 06/23/17 [History] cloNIDine HCl [CloNIDine HCl] 0.1 mg PO BID PRN 06/23/17 [History] hydrALAZINE [HydrALAZINE] 50 mg PO BID 06/23/17 [History] Aspirin/Dipyridamole [Aggrenox 25 mg-200 mg Capsule] 1 cap PO BID 12/30/17 [ History] Chlorthalidone 25 mg PO DAILY 12/30/17 [History] Mometasone Furoate [Asmanex] 220 mcg IH DAILY 12/30/17 [History] Polyethylene Glycol 3350 [MiraLAX] 17 gm PO DAILY 12/30/17 [History] OxyCODONE Immed Rel [Roxicodone 5 MG] 5 mg PO Q4HR PRN 01/03/18 [History] Lidocaine Patch [Lidoderm 5% patch] 1 each TP DAILY #7 adh..patch 01/12/18 [Rx] Methyl Salicylate/Menthol [Bengay] 1 appl TP DAILY #1 tube 01/12/18 [Rx] traZODone [TraZODone] 50 mg PO HS #30 tablet 01/12/18 [Rx] Allergies/Adverse Reactions: 3 Allergy/AdvReac Type Severity Reaction Status Date / Time atorvastatin [From Lipitor] AdvReac See Verified 12/21/17 10:27 Comments nifedipine [From Procardia] AdvReac See Verified 12/21/17 10:27 Comments Certification: Further, I certify that my clinical findings support that this patient is homebound (i.e. absences from home require considerable and taxing effort and are for medical reasons or [facility] services or infrequently or short duration when for other reasons) because: Homebound Reason: Leaving home requires considerable and taxing effort due to condition (Spinal fusion surgery) Attestation: My signature below is to certify that this patient is under my care and that I, or nurse practitioner, or a physician's retirement assistant working with me, has a face-to -face encounter with this patient.
== END 2018-01-12 13:31 | disposition home health service (06) | DRG 949 ==
LOC: INPPIK 19:17
PROVIDERS: ADMIT Internal Medicine; ATTEND Internal Medicine

== ENCOUNTER 2019-07-24 14:21 | Inpatient (IN) ==
[2019-07-24 14:44] LABS: Basophils % 0.1 %; Eosinophils # 0.2 K/mcL (0.0-0.6); Hematocrit 43.8 % (35.3-44.9); Hemoglobin 14.7 g/dL (11.5-15.4); Immature Granulocytes % 0.4 % (0-4); Lymphocytes # 1.8 K/mcL (0.6-4.6); Lymphocytes % 21.6 %; Mean Corpuscular HGB Conc 33.6 g/dL (31.6-35.5); Mean Corpuscular Hemoglobin 33.6 pg (28.0-33.3); Mean Corpuscular Volume 100.2 fL (83.0-100.0); Mean Platelet Volume 10.3 fL (9.4-12.4); Monocytes # 0.6 K/mcL (0.0-1.3); Monocytes % 7.3 %; Neutrophils # 5.7 K/mcL (1.6-8.9); Platelet Count 145 K/mcL (140-400); Red Blood Count 4.37 M/mcL (3.82-4.97); Red Cell Distribution Width 11.9 % (11.5-14.5); Segmented Neutrophils % 68.6 %; White Blood Count 8.3 K/mcL (4.3-11.1)
[2019-07-24 14:58] LABS: BUN/Creatinine Ratio 29 (6-26); Blood Urea Nitrogen 55 mg/dL (8-23); Calcium 8.4 mg/dL (8.6-10.3); Carbon Dioxide 29 mEq/L (23-29); Chloride 101 mEq/L (98-107); Glucose 112 mg/dL (70-105); Osmolality,Calculated 298 (280-300); Potassium 3.6 mEq/L (3.5-5.1); Sodium 136 mEq/L (136-145); eGFR For African Americans 32 (> 60); eGFR For Non-African Americans 26 (> 60)
[2019-07-24 15:03] LABS: Troponin I < 0.03 ng/mL (< 0.04)
[2019-07-24 15:05] LABS: Bilirubin,Urine Negative (Negative); Blood,Urine Negative (Negative); Clarity,Urine Clear (Clear); Glucose,Urine (UA) Normal (Normal); Ketones,Urine Negative (Negative); Leukocyte Esterase,Urine Trace (Negative); Nitrite,Urine Negative (Negative); Protein,Urine Negative (Neg-Trace); Urobilinogen,Urine Normal (Normal)
[2019-07-24 15:12] LABS: Color,Urine Light Yellow (Yellow)
[2019-07-24 15:13] LABS: Squamous Epithelial Cell,Urine Few per lpf (None-Few); WBC,Urine 0-3 per hpf (0-3)
[2019-07-24 15:14] LABS: Bacteria,Urine Many per hpf (None-Few)
[2019-07-24] MEDS ORDERED: cefTRIAXone 2,000 MG in 0.9 % Sodium Chloride Mini Bag 100 ML IVPB ONE (15:44)
[2019-07-24] MEDS ORDERED: 0.9 % Sodium Chloride 1,000 ML IVC ONE (15:44)
[2019-07-24] MEDS ORDERED: Acetaminophen 325 MG TABLET PO PRN (15:52)
[2019-07-24] MEDS ORDERED: Naloxone 0.4 MG/ML INJ IVP PRN (15:52)
[2019-07-24] MEDS ORDERED: MOM Conc 10 ML UD.LIQ PO PRN (15:52)
[2019-07-24] MEDS ORDERED: Dextrose Gel 15 GM/37.5 ML TUBE PO PRN ×2 (16:00)
[2019-07-24] MEDS ORDERED: *HR* Dextrose 50 % in Water (Syg) 50 ML SYRINGE IVP PRN (16:00)
[2019-07-24] MEDS ORDERED: D5% in Water 1,000 ML IVC PRN (16:00)
[2019-07-24] MEDS: Insulin LISPRO 300 UNITS/3 ML VIAL SQ SCH ×2 (17:38→21:25)
[2019-07-24] MEDS: 0.9 % Sodium Chloride 1,000 ML IVC SCH (18:36)
[2019-07-24] MEDS: *HR* Heparin 5,000 UNIT/ML VIAL SQ SCH (22:02)
[2019-07-25] MEDS: 0.9 % Sodium Chloride 1,000 ML IVC SCH ×3 (02:13→19:05)
[2019-07-25] MEDS: *HR* Heparin 5,000 UNIT/ML VIAL SQ SCH ×3 (05:32→21:41)
[2019-07-25 07:12] LABS: Hemoglobin 13.5 g/dL (11.5-15.4); Mean Corpuscular HGB Conc 33.8 g/dL (31.6-35.5); Mean Corpuscular Hemoglobin 33.6 pg (28.0-33.3); Mean Corpuscular Volume 99.5 fL (83.0-100.0); Mean Platelet Volume 10.6 fL (9.4-12.4); Platelet Count 135 K/mcL (140-400); Red Blood Count 4.02 M/mcL (3.82-4.97); Red Cell Distribution Width 11.9 % (11.5-14.5)
[2019-07-25 07:32] LABS: Calcium 7.5 mg/dL (8.6-10.3); Potassium 3.3 mEq/L (3.5-5.1)
[2019-07-25] MEDS: *HR* OxyCODONE Immed Rel 5 MG TABLET PO PRN ×2 (08:32→17:09)
[2019-07-25] MEDS: Insulin LISPRO 300 UNITS/3 ML VIAL SQ SCH ×4 (08:34→20:25)
[2019-07-25 08:46] LABS: Sodium, Urine 71.6 mEq/L
[2019-07-25] MEDS ORDERED: cefTRIAXone 1,000 MG in 0.9 % Sodium Chloride Mini Bag 100 ML IVPB SCH (09:00)
[2019-07-25] MEDS ORDERED: Ertapenem 1,000 MG in 0.9 % Sodium Chloride Mini Bag 100 ML IVPB SCH (10:00)
[2019-07-25] MEDS: hydrOXYzine pamoate 25 MG CAPSULE PO PRN (21:41)
[2019-07-26] MEDS: *HR* OxyCODONE Immed Rel 5 MG TABLET PO PRN ×4 (00:03→20:15)
[2019-07-26] MEDS: 0.9 % Sodium Chloride 1,000 ML IVC SCH ×3 (03:32→20:16)
[2019-07-26] MEDS: *HR* Heparin 5,000 UNIT/ML VIAL SQ SCH ×3 (05:23→20:16)
[2019-07-26 06:16] LABS: Basophils % 0.2 %; Eosinophils # 0.2 K/mcL (0.0-0.6); Eosinophils % 4.3 %; Hematocrit 40.1 % (35.3-44.9); Hemoglobin 13.3 g/dL (11.5-15.4); Immature Granulocytes % 0.4 % (0-4); Lymphocytes % 39.3 %; Mean Corpuscular HGB Conc 33.2 g/dL (31.6-35.5); Mean Corpuscular Hemoglobin 33.1 pg (28.0-33.3); Mean Corpuscular Volume 99.8 fL (83.0-100.0); Mean Platelet Volume 10.7 fL (9.4-12.4); Monocytes # 0.5 K/mcL (0.0-1.3); Monocytes % 9.1 %; Neutrophils # 2.4 K/mcL (1.6-8.9); Platelet Count 135 K/mcL (140-400); Red Blood Count 4.02 M/mcL (3.82-4.97); Red Cell Distribution Width 11.9 % (11.5-14.5); Segmented Neutrophils % 46.7 %; White Blood Count 5.1 K/mcL (4.3-11.1)
[2019-07-26] MEDS: hydrOXYzine pamoate 25 MG CAPSULE PO PRN ×2 (06:38→13:25)
[2019-07-26 06:41] LABS: Calcium 7.6 mg/dL (8.6-10.3); Potassium 3.6 mEq/L (3.5-5.1)
[2019-07-26] MEDS: Insulin LISPRO 300 UNITS/3 ML VIAL SQ SCH ×4 (08:16→20:17)
[2019-07-26] MEDS: cefTRIAXone 1,000 MG in 0.9 % Sodium Chloride Mini Bag 100 ML IVPB SCH (09:40)
[2019-07-27] MEDS: *HR* Heparin 5,000 UNIT/ML VIAL SQ SCH ×3 (04:53→21:02)
[2019-07-27] MEDS: 0.9 % Sodium Chloride 1,000 ML IVC SCH ×2 (04:53→10:28)
[2019-07-27] MEDS ORDERED: *HR* Metoprolol 5 MG/5 ML VIAL IVP ONE (05:02)
[2019-07-27 05:30] LABS: Basophils % 0.4 %; Eosinophils # 0.3 K/mcL (0.0-0.6); Eosinophils % 5.1 %; Hematocrit 38.8 % (35.3-44.9); Hemoglobin 12.8 g/dL (11.5-15.4); Immature Granulocytes % 0.2 % (0-4); Lymphocytes % 39.5 %; Mean Corpuscular Hemoglobin 32.9 pg (28.0-33.3); Mean Corpuscular Volume 99.7 fL (83.0-100.0); Mean Platelet Volume 10.8 fL (9.4-12.4); Monocytes # 0.5 K/mcL (0.0-1.3); Monocytes % 9.3 %; Neutrophils # 2.3 K/mcL (1.6-8.9); Red Blood Count 3.89 M/mcL (3.82-4.97); Red Cell Distribution Width 11.9 % (11.5-14.5); Segmented Neutrophils % 45.5 %; White Blood Count 5.1 K/mcL (4.3-11.1)
[2019-07-27 05:38] LABS: Platelet Count 135 K/mcL (140-400)
[2019-07-27 06:01] LABS: Calcium 7.5 mg/dL (8.6-10.3); Potassium 3.3 mEq/L (3.5-5.1)
[2019-07-27] MEDS: *HR* OxyCODONE Immed Rel 5 MG TABLET PO PRN (06:23)
[2019-07-27] MEDS: Insulin LISPRO 300 UNITS/3 ML VIAL SQ SCH ×4 (07:43→21:02)
[2019-07-27] MEDS ORDERED: *HR* OxyCODONE Immed Rel 5 MG TABLET PO PRN (08:07)
[2019-07-27] MEDS ORDERED: Insulin DETEMIR 100 UNIT/ML X5UNITS SQ SCH ×2 (08:15→21:00)
[2019-07-27] MEDS: cefTRIAXone 1,000 MG in 0.9 % Sodium Chloride Mini Bag 100 ML IVPB SCH (09:52)
[2019-07-27] MEDS: *HR* Nateglinide 120 MG TABLET PO SCH ×3 (09:53→17:38)
[2019-07-27] MEDS: Ondansetron ODT 4 MG TAB.RAPDIS PO SCH (09:53)
[2019-07-27] MEDS: Gabapentin 300 MG CAPSULE PO SCH ×3 (09:54→21:02)
[2019-07-27] MEDS: Bumetanide 1 MG TABLET PO SCH (09:54)
[2019-07-27] MEDS: Lisinopril 20 MG TABLET PO SCH ×2 (09:54→21:01)
[2019-07-27] MEDS: amLODIPine 5 MG TABLET PO SCH ×2 (09:54→21:04)
[2019-07-27] MEDS: hydrALAZINE 25 MG TABLET PO SCH (17:38)
[2019-07-28] MEDS: hydrALAZINE 25 MG TABLET PO SCH ×2 (00:27→08:30)
[2019-07-28 06:14] LABS: Basophils % 0.4 %; Eosinophils # 0.2 K/mcL (0.0-0.6); Eosinophils % 3.9 %; Hematocrit 39.1 % (35.3-44.9); Hemoglobin 12.9 g/dL (11.5-15.4); Lymphocytes % 42.8 %; Mean Platelet Volume 11.1 fL (9.4-12.4); Monocytes # 0.5 K/mcL (0.0-1.3); Monocytes % 10.8 %; Platelet Count 139 K/mcL (140-400); Red Blood Count 3.91 M/mcL (3.82-4.97); Red Cell Distribution Width 12.1 % (11.5-14.5); Segmented Neutrophils % 42.1 %; White Blood Count 4.6 K/mcL (4.3-11.1)
[2019-07-28] MEDS: *HR* Heparin 5,000 UNIT/ML VIAL SQ SCH ×2 (06:20→14:04)
[2019-07-28 06:34] LABS: Potassium 3.5 mEq/L (3.5-5.1)
[2019-07-28] MEDS: Insulin LISPRO 300 UNITS/3 ML VIAL SQ SCH ×2 (07:38→11:43)
[2019-07-28 08:05] LABS: Platelet Estimate Decreased (Normal)
[2019-07-28] MEDS: Ondansetron ODT 4 MG TAB.RAPDIS PO SCH (08:29)
[2019-07-28] MEDS: Lisinopril 20 MG TABLET PO SCH (08:29)
[2019-07-28] MEDS: Gabapentin 300 MG CAPSULE PO SCH ×2 (08:29→14:04)
[2019-07-28] MEDS: Bumetanide 1 MG TABLET PO SCH (08:29)
[2019-07-28] MEDS: amLODIPine 5 MG TABLET PO SCH (08:30)
[2019-07-28] MEDS: *HR* Nateglinide 120 MG TABLET PO SCH ×2 (08:30→11:43)
[2019-07-28] MEDS ORDERED: cephALEXin 500 MG CAPSULE PO SCH (09:00)
[2019-07-28] MEDS ORDERED: *HR* Dextrose 50 % in Water (Vial) 50 ML VIAL IVP PRN (09:00)
[2019-07-28] MEDS: *HR* OxyCODONE Immed Rel 5 MG TABLET PO PRN (13:48)
[2019-07-28 14:20] VITALS: BP 164/74
[2019-07-28] MEDS: hydrOXYzine pamoate 25 MG CAPSULE PO PRN (14:24)
[2019-07-29] MEDS ORDERED: Magnesium Oxide 400 MG TABLET PO SCH (09:00)
== END 2019-07-28 14:24 | disposition other institution (70) | DRG 683 ==
LOC: EMEROOPIK 14:21 → INPPIK 14:21
PROVIDERS: ADMIT Family Medicine; ATTEND Family Medicine

== ENCOUNTER 2019-07-28 10:36 | Inpatient (IN) ==
[2019-07-28] MEDS ORDERED: Acetaminophen 325 MG TABLET PO PRN (14:38)
[2019-07-28] MEDS ORDERED: *HR* Dextrose 50 % in Water (Vial) 50 ML VIAL IVP PRN (14:44)
[2019-07-28] MEDS ORDERED: Dextrose Gel 15 GM/37.5 ML TUBE PO PRN ×2 (14:44)
[2019-07-28] MEDS ORDERED: D5% in Water 1,000 ML IVC PRN (14:44)
[2019-07-28] MEDS: Gabapentin 300 MG CAPSULE PO SCH ×2 (15:12→20:20)
[2019-07-28] MEDS: Insulin LISPRO 300 UNITS/3 ML VIAL SQ SCH ×2 (16:32→20:19)
[2019-07-28] MEDS: hydrALAZINE 25 MG TABLET PO SCH (16:32)
[2019-07-28] MEDS: cephALEXin 500 MG CAPSULE PO SCH ×2 (16:32→20:20)
[2019-07-28] MEDS: *HR* Nateglinide 120 MG TABLET PO SCH (16:32)
[2019-07-28] MEDS: Lisinopril 20 MG TABLET PO SCH (20:20)
[2019-07-28] MEDS: Insulin DETEMIR 100 UNIT/ML X5UNITS SQ SCH (20:20)
[2019-07-28] MEDS: amLODIPine 5 MG TABLET PO SCH (20:20)
[2019-07-28] MEDS ORDERED: cephALEXin 500 MG CAPSULE PO SCH (21:00)
[2019-07-29] MEDS: hydrALAZINE 25 MG TABLET PO SCH ×4 (00:36→23:44)
[2019-07-29 06:54] LABS: Basophils % 0.2 %; Eosinophils # 0.2 K/mcL (0.0-0.6); Eosinophils % 4.2 %; Hematocrit 40.7 % (35.3-44.9); Hemoglobin 13.5 g/dL (11.5-15.4); Lymphocytes # 1.8 K/mcL (0.6-4.6); Lymphocytes % 43.2 %; Mean Corpuscular HGB Conc 33.2 g/dL (31.6-35.5); Mean Corpuscular Hemoglobin 33.1 pg (28.0-33.3); Mean Corpuscular Volume 99.8 fL (83.0-100.0); Mean Platelet Volume 10.2 fL (9.4-12.4); Monocytes # 0.3 K/mcL (0.0-1.3); Monocytes % 7.7 %; Neutrophils # 1.9 K/mcL (1.6-8.9); Platelet Count 140 K/mcL (140-400); Red Blood Count 4.08 M/mcL (3.82-4.97); Red Cell Distribution Width 12.2 % (11.5-14.5); Segmented Neutrophils % 44.7 %; White Blood Count 4.3 K/mcL (4.3-11.1)
[2019-07-29 07:20] LABS: Calcium 8.4 mg/dL (8.6-10.3)
[2019-07-29 08:25] LABS: Large Platelets Present (Not Present); Platelet Estimate Normal (Normal); Reactive Lymphocytes Present (Not Present)
[2019-07-29] MEDS: cephALEXin 500 MG CAPSULE PO SCH ×3 (08:46→23:43)
[2019-07-29] MEDS: Gabapentin 300 MG CAPSULE PO SCH ×3 (08:46→23:43)
[2019-07-29] MEDS: *HR* Nateglinide 120 MG TABLET PO SCH ×3 (08:46→15:44)
[2019-07-29] MEDS: amLODIPine 5 MG TABLET PO SCH ×2 (08:47→23:44)
[2019-07-29] MEDS: Bumetanide 1 MG TABLET PO SCH (08:47)
[2019-07-29] MEDS: Lisinopril 20 MG TABLET PO SCH ×2 (08:47→23:44)
[2019-07-29] MEDS: Ondansetron ODT 4 MG TAB.RAPDIS PO SCH (08:48)
[2019-07-29] MEDS: Insulin LISPRO 300 UNITS/3 ML VIAL SQ SCH ×4 (08:48→23:44)
[2019-07-29] MEDS: *HR* OxyCODONE Immed Rel 5 MG TABLET PO PRN (15:44)
[2019-07-29] MEDS: Insulin DETEMIR 100 UNIT/ML X5UNITS SQ SCH (23:44)
[2019-07-29] MEDS: hydrOXYzine pamoate 25 MG CAPSULE PO PRN (23:44)
[2019-07-30] MEDS: *HR* OxyCODONE Immed Rel 5 MG TABLET PO PRN ×3 (06:23→18:45)
[2019-07-30] MEDS: Insulin LISPRO 300 UNITS/3 ML VIAL SQ SCH ×4 (08:40→21:17)
[2019-07-30] MEDS: *HR* Nateglinide 120 MG TABLET PO SCH ×3 (08:52→17:47)
[2019-07-30] MEDS: Ondansetron ODT 4 MG TAB.RAPDIS PO SCH ×2 (08:53→08:54)
[2019-07-30] MEDS: cephALEXin 500 MG CAPSULE PO SCH ×2 (08:53→15:30)
[2019-07-30] MEDS: Lisinopril 20 MG TABLET PO SCH ×2 (08:53→21:19)
[2019-07-30] MEDS: Bumetanide 1 MG TABLET PO SCH (08:53)
[2019-07-30] MEDS: amLODIPine 5 MG TABLET PO SCH ×2 (08:53→21:19)
[2019-07-30] MEDS: hydrALAZINE 25 MG TABLET PO SCH ×2 (08:53→15:30)
[2019-07-30] MEDS: Gabapentin 300 MG CAPSULE PO SCH ×3 (08:53→21:19)
[2019-07-30] MEDS: Insulin DETEMIR 100 UNIT/ML X5UNITS SQ SCH (21:19)
[2019-07-31] MEDS: hydrALAZINE 25 MG TABLET PO SCH ×3 (00:30→17:21)
[2019-07-31] MEDS: Insulin LISPRO 300 UNITS/3 ML VIAL SQ SCH ×4 (08:06→20:23)
[2019-07-31] MEDS: Ondansetron ODT 4 MG TAB.RAPDIS PO SCH (09:15)
[2019-07-31] MEDS: Lisinopril 20 MG TABLET PO SCH ×2 (09:18→20:23)
[2019-07-31] MEDS: *HR* Nateglinide 120 MG TABLET PO SCH ×3 (09:19→17:21)
[2019-07-31] MEDS: amLODIPine 5 MG TABLET PO SCH ×2 (09:19→20:23)
[2019-07-31] MEDS: Gabapentin 300 MG CAPSULE PO SCH ×3 (09:20→20:23)
[2019-07-31] MEDS: Bumetanide 1 MG TABLET PO SCH (09:20)
[2019-07-31] MEDS: *HR* OxyCODONE Immed Rel 5 MG TABLET PO PRN ×2 (09:21→19:27)
[2019-07-31] MEDS: hydrOXYzine pamoate 25 MG CAPSULE PO PRN (20:22)
[2019-07-31] MEDS: Insulin DETEMIR 100 UNIT/ML X5UNITS SQ SCH (20:23)
[2019-08-01] MEDS: hydrALAZINE 25 MG TABLET PO SCH ×3 (00:47→15:52)
[2019-08-01] MEDS: *HR* Nateglinide 120 MG TABLET PO SCH ×3 (07:52→15:52)
[2019-08-01] MEDS: Insulin LISPRO 300 UNITS/3 ML VIAL SQ SCH ×4 (07:53→20:51)
[2019-08-01] MEDS: Ondansetron ODT 4 MG TAB.RAPDIS PO SCH (09:25)
[2019-08-01] MEDS: Bumetanide 1 MG TABLET PO SCH (09:25)
[2019-08-01] MEDS: Lisinopril 20 MG TABLET PO SCH ×2 (09:25→21:00)
[2019-08-01] MEDS: amLODIPine 5 MG TABLET PO SCH ×2 (09:25→21:00)
[2019-08-01] MEDS: Gabapentin 300 MG CAPSULE PO SCH ×3 (09:25→20:59)
[2019-08-01] MEDS: *HR* OxyCODONE Immed Rel 5 MG TABLET PO PRN ×2 (11:26→19:48)
[2019-08-01] MEDS: hydrOXYzine pamoate 25 MG CAPSULE PO PRN (20:59)
[2019-08-01] MEDS: Insulin DETEMIR 100 UNIT/ML X5UNITS SQ SCH (21:00)
[2019-08-02] MEDS: hydrALAZINE 25 MG TABLET PO SCH ×2 (00:24→07:59)
[2019-08-02] MEDS: *HR* OxyCODONE Immed Rel 5 MG TABLET PO PRN (06:14)
[2019-08-02] MEDS: hydrOXYzine pamoate 25 MG CAPSULE PO PRN ×2 (06:14→10:38)
[2019-08-02 06:16] LABS: Hematocrit 41.4 % (35.3-44.9); Hemoglobin 13.4 g/dL (11.5-15.4); Mean Corpuscular HGB Conc 32.4 g/dL (31.6-35.5); Mean Platelet Volume 10.7 fL (9.4-12.4); Platelet Count 149 K/mcL (140-400); Red Blood Count 4.06 M/mcL (3.82-4.97); Red Cell Distribution Width 12.4 % (11.5-14.5); White Blood Count 5.1 K/mcL (4.3-11.1)
[2019-08-02 06:37] VITALS: BP 122/61
[2019-08-02 06:37] LABS: Calcium 8.5 mg/dL (8.6-10.3); Potassium 4.4 mEq/L (3.5-5.1)
[2019-08-02] MEDS: Insulin LISPRO 300 UNITS/3 ML VIAL SQ SCH ×2 (07:41→11:56)
[2019-08-02] MEDS: *HR* Nateglinide 120 MG TABLET PO SCH ×2 (07:58→11:56)
[2019-08-02] MEDS: Ondansetron ODT 4 MG TAB.RAPDIS PO SCH (08:06)
[2019-08-02] MEDS: Gabapentin 300 MG CAPSULE PO SCH (09:47)
[2019-08-02] MEDS: amLODIPine 5 MG TABLET PO SCH (09:47)
[2019-08-02] MEDS: Lisinopril 20 MG TABLET PO SCH (09:47)
[2019-08-02] MEDS: Bumetanide 1 MG TABLET PO SCH (09:48)
== END 2019-08-02 12:38 | disposition home health service (06) | DRG 560 ==
LOC: INPPIK 14:26
PROVIDERS: ADMIT Family Medicine; ATTEND Family Medicine

== ENCOUNTER 2019-12-19 13:22 | Inpatient (IN) ==
[2019-12-19] MEDS ORDERED: Dextrose Gel 15 GM/37.5 ML TUBE PO PRN ×2 (13:29)
[2019-12-19] MEDS ORDERED: *HR* Dextrose 50 % in Water (Vial) 50 ML VIAL IVP PRN (13:29)
[2019-12-19] MEDS ORDERED: D5% in Water 1,000 ML IVC PRN (13:29)
[2019-12-19] MEDS ORDERED: Ipratropium/Albuterol Neb 3 ML IH PRN (13:35)
[2019-12-19] MEDS: *HR* Nateglinide 120 MG TABLET PO SCH (15:54)
[2019-12-19] MEDS: *HR* OxyCODONE/APAP 10/325 TABLET PO PRN (15:54)
[2019-12-19] MEDS: tiZANidine 4 MG TABLET PO SCH ×2 (15:54→20:34)
[2019-12-19] MEDS: Gabapentin 300 MG CAPSULE PO SCH ×2 (15:54→20:33)
[2019-12-19] MEDS: Insulin LISPRO 300 UNITS/3 ML VIAL SQ SCH ×2 (16:00→20:34)
[2019-12-19] MEDS: cephALEXin 500 MG CAPSULE PO SCH (20:33)
[2019-12-19] MEDS: hydrALAZINE 25 MG TABLET PO SCH (20:33)
[2019-12-19] MEDS: Insulin DETEMIR 100 UNIT/ML X5UNITS SQ SCH (20:34)
[2019-12-19] MEDS: MOMETASONE 220 MCG IH SCH (20:35)
[2019-12-20 05:52] LABS: Hematocrit 45.1 % (35.3-44.9); Hemoglobin 14.8 g/dL (11.5-15.4); Immature Granulocytes % 0.7 % (0-4); Lymphocytes # 0.6 K/mcL (0.6-4.6); Lymphocytes % 8.3 %; Mean Corpuscular HGB Conc 32.8 g/dL (31.6-35.5); Mean Corpuscular Hemoglobin 31.7 pg (28.0-33.3); Mean Corpuscular Volume 96.6 fL (83.0-100.0); Mean Platelet Volume 10.6 fL (9.4-12.4); Monocytes # 0.4 K/mcL (0.0-1.3); Monocytes % 5.2 %; Neutrophils # 6.5 K/mcL (1.6-8.9); Platelet Count 153 K/mcL (140-400); Red Blood Count 4.67 M/mcL (3.82-4.97); Red Cell Distribution Width 13.2 % (11.5-14.5); Segmented Neutrophils % 85.8 %; White Blood Count 7.6 K/mcL (4.3-11.1)
[2019-12-20 06:13] LABS: Calcium 8.6 mg/dL (8.6-10.3)
[2019-12-20] MEDS: *HR* OxyCODONE/APAP 10/325 TABLET PO PRN (06:43)
[2019-12-20] MEDS: cephALEXin 500 MG CAPSULE PO SCH ×2 (08:03→20:19)
[2019-12-20] MEDS: *HR* Nateglinide 120 MG TABLET PO SCH ×3 (08:03→17:01)
[2019-12-20] MEDS: Gabapentin 300 MG CAPSULE PO SCH ×3 (08:04→20:19)
[2019-12-20] MEDS: DilTIAZem CD (24hr) 180 MG CAP.ER.24H PO SCH (08:04)
[2019-12-20] MEDS: Multivit/Ca/Min/Fe/FA 1 TAB TABLET PO SCH (08:04)
[2019-12-20] MEDS: lisinopriL 20 MG TABLET PO SCH (08:04)
[2019-12-20] MEDS: hydrALAZINE 25 MG TABLET PO SCH ×2 (08:04→20:19)
[2019-12-20] MEDS: Apixaban 5 MG TABLET PO SCH (08:04)
[2019-12-20] MEDS: Nicotine 14 MG PATCH.TD24 TD SCH (08:04)
[2019-12-20] MEDS: tiZANidine 4 MG TABLET PO SCH ×3 (08:04→20:19)
[2019-12-20] MEDS: Insulin LISPRO 300 UNITS/3 ML VIAL SQ SCH ×4 (08:05→20:18)
[2019-12-20] MEDS: Insulin DETEMIR 100 UNIT/ML X5UNITS SQ SCH ×2 (08:49→20:18)
[2019-12-20] MEDS ORDERED: NEBIVOLOL HCL 40 MG PO SCH (09:00)
[2019-12-20] MEDS ORDERED: amLODIPine 5 MG TABLET PO SCH (09:00)
[2019-12-20] MEDS ORDERED: predniSONE 20 MG TABLET PO SCH (09:00)
[2019-12-20 09:46] LABS: ABG Base Excess -6 mEq/L (-2 to 3); ABG HCO3 22 mEq/L (21-27); ABG Oxygen Saturation 90 % (95-98); ABG PCO2 47 mmHg (35-45); ABG PH 7.27 pH Units (7.32-7.45); ABG PO2 66 mmHg (85-104); ABG TCO2 23 mEq/L (20-26)
[2019-12-20] MEDS: 0.9 % Sodium Chloride 1,000 ML IVC SCH ×2 (10:54→20:17)
[2019-12-20] MEDS: MOMETASONE 220 MCG IH SCH (20:15)
[2019-12-21] MEDS: 0.9 % Sodium Chloride 1,000 ML IVC SCH ×2 (05:52→16:46)
[2019-12-21] MEDS: Insulin LISPRO 300 UNITS/3 ML VIAL SQ SCH ×4 (07:29→21:26)
[2019-12-21] MEDS: *HR* Nateglinide 120 MG TABLET PO SCH ×3 (08:05→16:45)
[2019-12-21] MEDS: tiZANidine 4 MG TABLET PO SCH ×3 (08:05→20:22)
[2019-12-21] MEDS: Apixaban 5 MG TABLET PO SCH (08:06)
[2019-12-21] MEDS: DilTIAZem CD (24hr) 180 MG CAP.ER.24H PO SCH (08:06)
[2019-12-21] MEDS: hydrALAZINE 25 MG TABLET PO SCH ×2 (08:06→20:21)
[2019-12-21] MEDS: Gabapentin 300 MG CAPSULE PO SCH ×3 (08:06→20:21)
[2019-12-21] MEDS: Multivit/Ca/Min/Fe/FA 1 TAB TABLET PO SCH (08:06)
[2019-12-21] MEDS: lisinopriL 20 MG TABLET PO SCH (08:07)
[2019-12-21] MEDS: Nicotine 14 MG PATCH.TD24 TD SCH (08:07)
[2019-12-21] MEDS: cephALEXin 500 MG CAPSULE PO SCH ×2 (08:07→21:58)
[2019-12-21] MEDS: *HR* OxyCODONE/APAP 10/325 TABLET PO PRN (08:29)
[2019-12-21] MEDS: Insulin DETEMIR 100 UNIT/ML X5UNITS SQ SCH ×2 (08:29→21:58)
[2019-12-21 13:28] LABS: Calcium 8.6 mg/dL (8.6-10.3); Potassium 4.6 mEq/L (3.5-5.1)
[2019-12-21] MEDS: Ondansetron 4 MG/2 ML VIAL IVP PRN (20:21)
[2019-12-21] MEDS: MOMETASONE 220 MCG IH SCH (21:26)
[2019-12-22] MEDS: *HR* OxyCODONE/APAP 10/325 TABLET PO PRN (02:17)
[2019-12-22] MEDS: *HR* LORazepam 0.5 MG TABLET PO PRN (02:43)
[2019-12-22] MEDS: 0.9 % Sodium Chloride 1,000 ML IVC SCH ×3 (02:45→19:50)
[2019-12-22] MEDS: Insulin LISPRO 300 UNITS/3 ML VIAL SQ SCH ×4 (07:22→20:40)
[2019-12-22] MEDS: *HR* Nateglinide 120 MG TABLET PO SCH ×3 (08:50→17:20)
[2019-12-22] MEDS: cephALEXin 500 MG CAPSULE PO SCH ×2 (08:50→20:45)
[2019-12-22] MEDS: lisinopriL 20 MG TABLET PO SCH (08:51)
[2019-12-22] MEDS: DilTIAZem CD (24hr) 180 MG CAP.ER.24H PO SCH (08:51)
[2019-12-22] MEDS: tiZANidine 4 MG TABLET PO SCH ×3 (08:51→20:45)
[2019-12-22] MEDS: hydrALAZINE 25 MG TABLET PO SCH ×2 (08:51→20:45)
[2019-12-22] MEDS: Multivit/Ca/Min/Fe/FA 1 TAB TABLET PO SCH (08:51)
[2019-12-22] MEDS: Nicotine 14 MG PATCH.TD24 TD SCH (08:51)
[2019-12-22] MEDS: Gabapentin 300 MG CAPSULE PO SCH ×3 (08:51→20:46)
[2019-12-22] MEDS: Apixaban 5 MG TABLET PO SCH (08:51)
[2019-12-22] MEDS: Insulin DETEMIR 100 UNIT/ML X5UNITS SQ SCH ×2 (08:52→20:46)
[2019-12-22] MEDS: Ondansetron 4 MG/2 ML VIAL IVP PRN (08:55)
[2019-12-22] MEDS: MOMETASONE 220 MCG IH SCH (20:40)
[2019-12-23] MEDS: *HR* OxyCODONE/APAP 10/325 TABLET PO PRN ×2 (05:28→22:27)
[2019-12-23] MEDS: 0.9 % Sodium Chloride 1,000 ML IVC SCH (05:28)
[2019-12-23] MEDS: Insulin LISPRO 300 UNITS/3 ML VIAL SQ SCH ×4 (07:43→22:30)
[2019-12-23] MEDS: hydrALAZINE 25 MG TABLET PO SCH ×2 (09:04→22:28)
[2019-12-23] MEDS: Gabapentin 300 MG CAPSULE PO SCH ×3 (09:04→22:28)
[2019-12-23] MEDS: cephALEXin 500 MG CAPSULE PO SCH ×2 (09:04→22:27)
[2019-12-23] MEDS: lisinopriL 20 MG TABLET PO SCH (09:04)
[2019-12-23] MEDS: DilTIAZem CD (24hr) 180 MG CAP.ER.24H PO SCH (09:04)
[2019-12-23] MEDS: Multivit/Ca/Min/Fe/FA 1 TAB TABLET PO SCH (09:04)
[2019-12-23] MEDS: *HR* Nateglinide 120 MG TABLET PO SCH ×3 (09:04→16:58)
[2019-12-23] MEDS: Nicotine 14 MG PATCH.TD24 TD SCH (09:05)
[2019-12-23] MEDS: tiZANidine 4 MG TABLET PO SCH ×3 (09:05→22:29)
[2019-12-23] MEDS: Apixaban 5 MG TABLET PO SCH (09:05)
[2019-12-23] MEDS: Insulin DETEMIR 100 UNIT/ML X5UNITS SQ SCH ×2 (09:06→22:30)
[2019-12-23] MEDS: Ondansetron 4 MG/2 ML VIAL IVP PRN (09:56)
[2019-12-23] MEDS: MOMETASONE 220 MCG IH SCH (22:02)
[2019-12-24 07:18] LABS: Calcium 8.8 mg/dL (8.6-10.3); Potassium 4.5 mEq/L (3.5-5.1)
[2019-12-24] MEDS: Insulin LISPRO 300 UNITS/3 ML VIAL SQ SCH ×4 (08:44→20:16)
[2019-12-24] MEDS: Insulin DETEMIR 100 UNIT/ML X5UNITS SQ SCH ×2 (08:51→20:50)
[2019-12-24] MEDS: Nicotine 14 MG PATCH.TD24 TD SCH (08:51)
[2019-12-24] MEDS: Apixaban 5 MG TABLET PO SCH (08:52)
[2019-12-24] MEDS: tiZANidine 4 MG TABLET PO SCH ×3 (08:52→20:49)
[2019-12-24] MEDS: DilTIAZem CD (24hr) 180 MG CAP.ER.24H PO SCH (08:52)
[2019-12-24] MEDS: Multivit/Ca/Min/Fe/FA 1 TAB TABLET PO SCH (08:52)
[2019-12-24] MEDS: *HR* Nateglinide 120 MG TABLET PO SCH ×3 (08:52→16:57)
[2019-12-24] MEDS: hydrALAZINE 25 MG TABLET PO SCH ×2 (08:52→20:49)
[2019-12-24] MEDS: cephALEXin 500 MG CAPSULE PO SCH ×2 (08:52→20:49)
[2019-12-24] MEDS: lisinopriL 20 MG TABLET PO SCH (08:53)
[2019-12-24] MEDS: Gabapentin 300 MG CAPSULE PO SCH ×3 (08:53→20:49)
[2019-12-24] MEDS: *HR* OxyCODONE/APAP 10/325 TABLET PO PRN ×3 (08:58→21:34)
[2019-12-24] MEDS: *HR* LORazepam 0.5 MG TABLET PO PRN (20:49)
[2019-12-24] MEDS: MOMETASONE 220 MCG IH SCH (21:33)
[2019-12-25] MEDS: hydrALAZINE 25 MG TABLET PO SCH ×2 (06:49→20:01)
[2019-12-25] MEDS: DilTIAZem CD (24hr) 180 MG CAP.ER.24H PO SCH (09:41)
[2019-12-25] MEDS: Gabapentin 300 MG CAPSULE PO SCH ×3 (09:41→20:01)
[2019-12-25] MEDS: Apixaban 5 MG TABLET PO SCH (09:42)
[2019-12-25] MEDS: tiZANidine 4 MG TABLET PO SCH ×3 (09:42→20:01)
[2019-12-25] MEDS: cephALEXin 500 MG CAPSULE PO SCH ×2 (09:42→20:02)
[2019-12-25] MEDS: lisinopriL 20 MG TABLET PO SCH (09:42)
[2019-12-25] MEDS: *HR* Nateglinide 120 MG TABLET PO SCH ×3 (09:42→16:51)
[2019-12-25] MEDS: Multivit/Ca/Min/Fe/FA 1 TAB TABLET PO SCH (09:42)
[2019-12-25] MEDS: Nicotine 14 MG PATCH.TD24 TD SCH (09:45)
[2019-12-25] MEDS: Insulin DETEMIR 100 UNIT/ML X5UNITS SQ SCH ×2 (09:49→20:04)
[2019-12-25] MEDS: Insulin LISPRO 300 UNITS/3 ML VIAL SQ SCH ×4 (09:49→20:01)
[2019-12-25] MEDS: Loratadine 10 MG TABLET PO SCH (10:02)
[2019-12-25] MEDS: *HR* OxyCODONE/APAP 10/325 TABLET PO PRN ×2 (17:44→23:48)
[2019-12-25] MEDS: MOMETASONE 220 MCG IH SCH (20:02)
[2019-12-25] MEDS: *HR* LORazepam 0.5 MG TABLET PO PRN (23:48)
[2019-12-26] MEDS: Insulin LISPRO 300 UNITS/3 ML VIAL SQ SCH ×4 (07:34→19:50)
[2019-12-26 07:39] LABS: Hematocrit 45.1 % (35.3-44.9); Mean Corpuscular HGB Conc 33.3 g/dL (31.6-35.5); Mean Corpuscular Hemoglobin 31.8 pg (28.0-33.3); Mean Corpuscular Volume 95.6 fL (83.0-100.0); Mean Platelet Volume 10.8 fL (9.4-12.4); Platelet Count 178 K/mcL (140-400); Red Blood Count 4.72 M/mcL (3.82-4.97); Red Cell Distribution Width 13.5 % (11.5-14.5); White Blood Count 6.1 K/mcL (4.3-11.1)
[2019-12-26 07:57] LABS: Potassium 4.3 mEq/L (3.5-5.1)
[2019-12-26] MEDS: hydrALAZINE 25 MG TABLET PO SCH ×2 (08:09→19:45)
[2019-12-26] MEDS: lisinopriL 20 MG TABLET PO SCH (08:09)
[2019-12-26] MEDS: tiZANidine 4 MG TABLET PO SCH ×3 (08:09→19:45)
[2019-12-26] MEDS: DilTIAZem CD (24hr) 180 MG CAP.ER.24H PO SCH (08:09)
[2019-12-26] MEDS: *HR* Nateglinide 120 MG TABLET PO SCH ×3 (08:10→17:25)
[2019-12-26] MEDS: Multivit/Ca/Min/Fe/FA 1 TAB TABLET PO SCH (08:10)
[2019-12-26] MEDS: Apixaban 5 MG TABLET PO SCH (08:10)
[2019-12-26] MEDS: Nicotine 14 MG PATCH.TD24 TD SCH (08:10)
[2019-12-26] MEDS: Insulin DETEMIR 100 UNIT/ML X5UNITS SQ SCH ×2 (08:11→19:45)
[2019-12-26] MEDS: Loratadine 10 MG TABLET PO SCH (08:27)
[2019-12-26] MEDS: Gabapentin 300 MG CAPSULE PO SCH ×3 (08:27→19:45)
[2019-12-26] MEDS: *HR* OxyCODONE/APAP 10/325 TABLET PO PRN ×2 (10:37→21:19)
[2019-12-26] MEDS ORDERED: lisinopriL 20 MG TABLET PO ONE (10:37)
[2019-12-26 16:06] LABS: ABG Base Excess -1 mEq/L (-2 to 3); ABG HCO3 25 mEq/L (21-27); ABG Oxygen Saturation 93 % (95-98); ABG PCO2 43 mmHg (35-45); ABG PH 7.37 pH Units (7.32-7.45); ABG PO2 71 mmHg (85-104); ABG TCO2 26 mEq/L (20-26)
[2019-12-26] MEDS: MOMETASONE 220 MCG IH SCH (19:50)
[2019-12-26] MEDS: *HR* LORazepam 0.5 MG TABLET PO PRN (21:19)
[2019-12-27] MEDS: *HR* OxyCODONE/APAP 10/325 TABLET PO PRN (06:58)
[2019-12-27] MEDS: Bumetanide 1 MG TABLET PO SCH (07:38)
[2019-12-27] MEDS: lisinopriL 20 MG TABLET PO SCH (07:38)
[2019-12-27] MEDS: hydrALAZINE 25 MG TABLET PO SCH ×2 (07:38→20:05)
[2019-12-27] MEDS: Apixaban 5 MG TABLET PO SCH (07:38)
[2019-12-27] MEDS: Loratadine 10 MG TABLET PO SCH (07:38)
[2019-12-27] MEDS: DilTIAZem CD (24hr) 180 MG CAP.ER.24H PO SCH (07:38)
[2019-12-27] MEDS: Multivit/Ca/Min/Fe/FA 1 TAB TABLET PO SCH (07:39)
[2019-12-27] MEDS: tiZANidine 4 MG TABLET PO SCH ×3 (07:39→20:05)
[2019-12-27] MEDS: *HR* Nateglinide 120 MG TABLET PO SCH ×3 (07:39→16:36)
[2019-12-27] MEDS: Nicotine 14 MG PATCH.TD24 TD SCH (07:40)
[2019-12-27] MEDS: Insulin LISPRO 300 UNITS/3 ML VIAL SQ SCH ×4 (07:41→20:04)
[2019-12-27] MEDS: *HR* LORazepam 0.5 MG TABLET PO PRN (09:38)
[2019-12-27] MEDS: Gabapentin 300 MG CAPSULE PO SCH ×3 (09:38→20:05)
[2019-12-27] MEDS: Metoprolol 100 MG TABLET PO SCH ×2 (09:38→20:05)
[2019-12-27] MEDS: Insulin DETEMIR 100 UNIT/ML X5UNITS SQ SCH (11:37)
[2019-12-27] MEDS: MOMETASONE 220 MCG IH SCH (22:11)
[2019-12-28] MEDS: *HR* OxyCODONE/APAP 10/325 TABLET PO PRN ×3 (00:19→12:07)
[2019-12-28] MEDS: lisinopriL 20 MG TABLET PO SCH (07:27)
[2019-12-28] MEDS: Apixaban 5 MG TABLET PO SCH (07:27)
[2019-12-28] MEDS: hydrALAZINE 25 MG TABLET PO SCH ×2 (07:27→20:50)
[2019-12-28] MEDS: Multivit/Ca/Min/Fe/FA 1 TAB TABLET PO SCH (07:28)
[2019-12-28] MEDS: Bumetanide 1 MG TABLET PO SCH (07:28)
[2019-12-28] MEDS: Gabapentin 300 MG CAPSULE PO SCH ×3 (07:28→20:50)
[2019-12-28] MEDS: *HR* LORazepam 0.5 MG TABLET PO PRN (07:28)
[2019-12-28] MEDS: Loratadine 10 MG TABLET PO SCH (07:28)
[2019-12-28] MEDS: tiZANidine 4 MG TABLET PO SCH ×3 (07:28→20:50)
[2019-12-28] MEDS: DilTIAZem CD (24hr) 180 MG CAP.ER.24H PO SCH (07:28)
[2019-12-28] MEDS: Insulin LISPRO 300 UNITS/3 ML VIAL SQ SCH ×4 (07:29→20:51)
[2019-12-28] MEDS: Nicotine 14 MG PATCH.TD24 TD SCH (07:30)
[2019-12-28] MEDS: *HR* Nateglinide 120 MG TABLET PO SCH ×3 (07:30→16:08)
[2019-12-28] MEDS: Metoprolol 100 MG TABLET PO SCH ×2 (07:31→20:50)
[2019-12-28] MEDS: Insulin DETEMIR 100 UNIT/ML X5UNITS SQ SCH (09:15)
[2019-12-28] MEDS: MOMETASONE 220 MCG IH SCH (22:18)
[2019-12-29] MEDS: *HR* OxyCODONE/APAP 10/325 TABLET PO PRN ×3 (00:36→21:09)
[2019-12-29] MEDS: *HR* LORazepam 0.5 MG TABLET PO PRN ×2 (00:37→22:42)
[2019-12-29] MEDS: Insulin LISPRO 300 UNITS/3 ML VIAL SQ SCH ×4 (07:46→21:10)
[2019-12-29] MEDS: Nicotine 14 MG PATCH.TD24 TD SCH (09:53)
[2019-12-29] MEDS: Bumetanide 1 MG TABLET PO SCH (09:56)
[2019-12-29] MEDS: Multivit/Ca/Min/Fe/FA 1 TAB TABLET PO SCH (09:56)
[2019-12-29] MEDS: DilTIAZem CD (24hr) 180 MG CAP.ER.24H PO SCH (09:57)
[2019-12-29] MEDS: Metoprolol 100 MG TABLET PO SCH ×2 (09:57→21:09)
[2019-12-29] MEDS: Loratadine 10 MG TABLET PO SCH (09:57)
[2019-12-29] MEDS: tiZANidine 4 MG TABLET PO SCH ×3 (09:57→21:08)
[2019-12-29] MEDS: Apixaban 5 MG TABLET PO SCH (09:57)
[2019-12-29] MEDS: *HR* Nateglinide 120 MG TABLET PO SCH ×3 (09:58→15:49)
[2019-12-29] MEDS: hydrALAZINE 25 MG TABLET PO SCH ×3 (09:58→21:08)
[2019-12-29] MEDS: lisinopriL 20 MG TABLET PO SCH (09:58)
[2019-12-29] MEDS: Insulin DETEMIR 100 UNIT/ML X5UNITS SQ SCH (10:05)
[2019-12-29] MEDS: Gabapentin 300 MG CAPSULE PO SCH ×3 (10:15→21:08)
[2019-12-29] MEDS: Ondansetron ODT 4 MG TAB.RAPDIS SL PRN (14:24)
[2019-12-29] MEDS: MOMETASONE 220 MCG IH SCH (21:10)
[2019-12-30] MEDS: *HR* OxyCODONE/APAP 10/325 TABLET PO PRN ×2 (09:32→16:42)
[2019-12-30] MEDS: Bumetanide 1 MG TABLET PO SCH (09:33)
[2019-12-30] MEDS: tiZANidine 4 MG TABLET PO SCH ×3 (09:33→20:41)
[2019-12-30] MEDS: Gabapentin 300 MG CAPSULE PO SCH ×3 (09:33→20:41)
[2019-12-30] MEDS: *HR* Nateglinide 120 MG TABLET PO SCH ×3 (09:34→16:43)
[2019-12-30] MEDS: hydrALAZINE 25 MG TABLET PO SCH ×3 (09:34→20:41)
[2019-12-30] MEDS: DilTIAZem CD (24hr) 180 MG CAP.ER.24H PO SCH (09:35)
[2019-12-30] MEDS: Loratadine 10 MG TABLET PO SCH (09:35)
[2019-12-30] MEDS: Ondansetron ODT 4 MG TAB.RAPDIS SL PRN (09:35)
[2019-12-30] MEDS: Multivit/Ca/Min/Fe/FA 1 TAB TABLET PO SCH (09:35)
[2019-12-30] MEDS: lisinopriL 20 MG TABLET PO SCH (09:35)
[2019-12-30] MEDS: Apixaban 5 MG TABLET PO SCH (09:36)
[2019-12-30] MEDS: Metoprolol 100 MG TABLET PO SCH ×2 (09:36→20:51)
[2019-12-30] MEDS: Insulin DETEMIR 100 UNIT/ML X5UNITS SQ SCH (09:42)
[2019-12-30] MEDS: Insulin LISPRO 300 UNITS/3 ML VIAL SQ SCH ×4 (09:51→20:38)
[2019-12-30] MEDS: Nicotine 14 MG PATCH.TD24 TD SCH (11:22)
[2019-12-30] MEDS ORDERED: cloNIDine HCL 0.1 MG TABLET PO PRN (15:38)
[2019-12-30] MEDS: *HR* LORazepam 0.5 MG TABLET PO PRN (20:50)
[2019-12-30] MEDS: MOMETASONE 220 MCG IH SCH (23:23)
[2019-12-31] MEDS: *HR* OxyCODONE/APAP 10/325 TABLET PO PRN ×2 (05:47→20:40)
[2019-12-31] MEDS: tiZANidine 4 MG TABLET PO SCH ×3 (08:23→20:40)
[2019-12-31] MEDS: DilTIAZem CD (24hr) 180 MG CAP.ER.24H PO SCH (08:23)
[2019-12-31] MEDS: Apixaban 5 MG TABLET PO SCH (08:23)
[2019-12-31] MEDS: Multivit/Ca/Min/Fe/FA 1 TAB TABLET PO SCH (08:23)
[2019-12-31] MEDS: Insulin LISPRO 300 UNITS/3 ML VIAL SQ SCH ×4 (08:23→20:41)
[2019-12-31] MEDS: hydrALAZINE 25 MG TABLET PO SCH ×3 (08:25→20:39)
[2019-12-31] MEDS: *HR* Nateglinide 120 MG TABLET PO SCH ×3 (08:25→16:21)
[2019-12-31] MEDS: Bumetanide 1 MG TABLET PO SCH (08:26)
[2019-12-31] MEDS: Loratadine 10 MG TABLET PO SCH (08:26)
[2019-12-31] MEDS: lisinopriL 20 MG TABLET PO SCH (08:26)
[2019-12-31] MEDS: Nicotine 14 MG PATCH.TD24 TD SCH (08:27)
[2019-12-31] MEDS: Metoprolol 100 MG TABLET PO SCH ×2 (08:27→20:39)
[2019-12-31] MEDS: Insulin DETEMIR 100 UNIT/ML X5UNITS SQ SCH (08:32)
[2019-12-31] MEDS: Ondansetron ODT 4 MG TAB.RAPDIS SL PRN (08:32)
[2019-12-31] MEDS: Gabapentin 300 MG CAPSULE PO SCH ×3 (08:41→20:40)
[2019-12-31] MEDS: *HR* LORazepam 0.5 MG TABLET PO PRN (20:39)
[2019-12-31] MEDS: MOMETASONE 220 MCG IH SCH (20:44)
[2020-01-01] MEDS: *HR* OxyCODONE/APAP 10/325 TABLET PO PRN ×2 (05:53→12:13)
[2020-01-01 07:09] VITALS: BP 124/68
[2020-01-01] MEDS: DilTIAZem CD (24hr) 180 MG CAP.ER.24H PO SCH (08:13)
[2020-01-01] MEDS: *HR* Nateglinide 120 MG TABLET PO SCH ×2 (08:13→12:13)
[2020-01-01] MEDS: lisinopriL 20 MG TABLET PO SCH (08:13)
[2020-01-01] MEDS: Apixaban 5 MG TABLET PO SCH (08:13)
[2020-01-01] MEDS: Loratadine 10 MG TABLET PO SCH (08:13)
[2020-01-01] MEDS: hydrALAZINE 25 MG TABLET PO SCH (08:13)
[2020-01-01] MEDS: Gabapentin 300 MG CAPSULE PO SCH (08:14)
[2020-01-01] MEDS: Multivit/Ca/Min/Fe/FA 1 TAB TABLET PO SCH (08:14)
[2020-01-01] MEDS: Insulin DETEMIR 100 UNIT/ML X5UNITS SQ SCH (08:14)
[2020-01-01] MEDS: Metoprolol 100 MG TABLET PO SCH (08:14)
[2020-01-01] MEDS: Nicotine 14 MG PATCH.TD24 TD SCH (08:14)
[2020-01-01] MEDS: tiZANidine 4 MG TABLET PO SCH (08:14)
[2020-01-01] MEDS: Bumetanide 1 MG TABLET PO SCH (08:14)
[2020-01-01] MEDS: Insulin LISPRO 300 UNITS/3 ML VIAL SQ SCH ×2 (08:15→12:14)
[2020-01-01] MEDS: *HR* LORazepam 0.5 MG TABLET PO PRN (09:13)
[2020-01-01] MEDS ORDERED: Acetaminophen 325 MG TABLET PO ONE (10:35)
== END 2020-01-01 15:15 | disposition home health service (06) | DRG 189 ==
LOC: INPPIK 13:28
PROVIDERS: ADMIT Family Medicine; ATTEND Family Medicine

== ENCOUNTER 2020-01-01 21:36 | Observation (INO) ==
[2020-01-01 22:12] LABS: Basophils % 0.1 %; Eosinophils # 0.2 K/mcL (0.0-0.6); Eosinophils % 1.7 %; Hematocrit 41.1 % (35.3-44.9); Hemoglobin 13.5 g/dL (11.5-15.4); Immature Granulocytes % 0.2 % (0-4); Lymphocytes # 1.1 K/mcL (0.6-4.6); Lymphocytes % 12.4 %; Mean Corpuscular HGB Conc 32.8 g/dL (31.6-35.5); Mean Corpuscular Volume 97.4 fL (83.0-100.0); Mean Platelet Volume 11.1 fL (9.4-12.4); Monocytes # 0.7 K/mcL (0.0-1.3); Monocytes % 8.2 %; Neutrophils # 6.7 K/mcL (1.6-8.9); Platelet Count 121 K/mcL (140-400); Red Blood Count 4.22 M/mcL (3.82-4.97); Red Cell Distribution Width 13.7 % (11.5-14.5); Segmented Neutrophils % 77.4 %; White Blood Count 8.6 K/mcL (4.3-11.1)
[2020-01-01 22:17] LABS: Alanine Aminotransferase 116 Units/L (7-52); Albumin 3.2 g/dL (3.5-5.7); Albumin/Globulin Ratio 1.3 (1.1-2.2); Alkaline Phosphatase 96 Units/L (34-104); Aspartate Amino Transferase 40 Units/L (13-39); BUN/Creatinine Ratio 22 (6-26); Bilirubin,Indirect 0.4 mg/dL (0.0-1.0); Bilirubin,Total 0.4 mg/dL (0.3-1.0); Blood Urea Nitrogen 42 mg/dL (8-23); Calcium 8.6 mg/dL (8.6-10.3); Carbon Dioxide 29 mEq/L (23-29); Chloride 106 mEq/L (98-107); Globulin 2.5 g/dL (2.4-3.5); Glucose 162 mg/dL (70-105); Osmolality,Calculated 310 (280-300); Potassium 4.1 mEq/L (3.5-5.1); Sodium 143 mEq/L (136-145); Total Protein 5.7 g/dL (6.4-8.9); eGFR For African Americans 32 (> 60); eGFR For Non-African Americans 26 (> 60)
[2020-01-01 22:20] LABS: Troponin I < 0.03 ng/mL (< 0.04)
[2020-01-01 22:32] LABS: Large Platelets Present (Not Present); Platelet Estimate Decreased (Normal)
[2020-01-01] MEDS ORDERED: Naloxone 0.4 MG/ML INJ IVP PRN (23:44)
[2020-01-01] MEDS ORDERED: *HR* LORazepam 0.5 MG TABLET PO PRN (23:44)
[2020-01-01] MEDS ORDERED: Dextrose Gel 15 GM/37.5 ML TUBE PO PRN ×2 (23:44)
[2020-01-01] MEDS ORDERED: MOM Conc 10 ML UD.LIQ PO PRN (23:44)
[2020-01-01] MEDS ORDERED: Ondansetron ODT 4 MG TAB.RAPDIS SL PRN (23:44)
[2020-01-01] MEDS ORDERED: D5% in Water 1,000 ML IVC PRN (23:44)
[2020-01-01] MEDS ORDERED: *HR* Dextrose 50 % in Water (Vial) 50 ML VIAL IVP PRN (23:44)
[2020-01-01] MEDS ORDERED: Mag Hydrox/Al Hydrox/Simeth 30 ML UDC PO PRN (23:44)
[2020-01-02] MEDS ORDERED: Ipratropium/Albuterol Neb 3 ML IH PRN (04:00)
[2020-01-02] MEDS: Insulin LISPRO 300 UNITS/3 ML VIAL SQ SCH ×3 (08:16→17:04)
[2020-01-02] MEDS: Nicotine 14 MG PATCH.TD24 TD SCH (08:25)
[2020-01-02] MEDS: Multivit/Ca/Min/Fe/FA 1 TAB TABLET PO SCH (08:25)
[2020-01-02] MEDS: Bumetanide 1 MG TABLET PO SCH (08:25)
[2020-01-02] MEDS: DilTIAZem CD (24hr) 180 MG CAP.ER.24H PO SCH (08:25)
[2020-01-02] MEDS: lisinopriL 20 MG TABLET PO SCH (08:25)
[2020-01-02] MEDS: tiZANidine 4 MG TABLET PO SCH ×3 (08:25→20:52)
[2020-01-02] MEDS: Gabapentin 300 MG CAPSULE PO SCH ×3 (08:26→20:52)
[2020-01-02] MEDS: Metoprolol 100 MG TABLET PO SCH ×2 (08:26→20:52)
[2020-01-02] MEDS: Loratadine 10 MG TABLET PO SCH (08:26)
[2020-01-02] MEDS: hydrALAZINE 25 MG TABLET PO SCH ×3 (08:26→20:53)
[2020-01-02] MEDS: Apixaban 5 MG TABLET PO SCH ×2 (08:27→20:52)
[2020-01-02] MEDS ORDERED: Furosemide 40 MG/4 ML VIAL IVP ONE (08:28)
[2020-01-02] MEDS: *HR* OxyCODONE/APAP 10/325 TABLET PO PRN ×2 (08:36→20:53)
[2020-01-02] MEDS ORDERED: NATEGLINIDE 60 MG PO SCH (09:00)
[2020-01-02] MEDS ORDERED: Insulin DETEMIR 100 UNIT/ML per UNIT SQ ONE (09:11)
[2020-01-02] MEDS: *HR* Nateglinide 120 MG TABLET PO SCH ×3 (09:15→15:55)
[2020-01-02] MEDS: Insulin DETEMIR 100 UNIT/ML X5UNITS SQ SCH (09:16)
[2020-01-02] MEDS ORDERED: MOMETASONE FUROATE 220 MCG AER SCH (21:00)
[2020-01-03] MEDS: Insulin LISPRO 300 UNITS/3 ML VIAL SQ SCH ×2 (07:38→11:16)
[2020-01-03 07:45] VITALS: BP 166/85
[2020-01-03] MEDS: Bumetanide 1 MG TABLET PO SCH (09:16)
[2020-01-03] MEDS: lisinopriL 20 MG TABLET PO SCH (09:16)
[2020-01-03] MEDS: *HR* Nateglinide 120 MG TABLET PO SCH ×2 (09:16→11:28)
[2020-01-03] MEDS: DilTIAZem CD (24hr) 180 MG CAP.ER.24H PO SCH (09:16)
[2020-01-03] MEDS: tiZANidine 4 MG TABLET PO SCH (09:16)
[2020-01-03] MEDS: Nicotine 14 MG PATCH.TD24 TD SCH (09:16)
[2020-01-03] MEDS: Loratadine 10 MG TABLET PO SCH (09:17)
[2020-01-03] MEDS: Metoprolol 100 MG TABLET PO SCH (09:17)
[2020-01-03] MEDS: Multivit/Ca/Min/Fe/FA 1 TAB TABLET PO SCH (09:17)
[2020-01-03] MEDS: Gabapentin 300 MG CAPSULE PO SCH (09:17)
[2020-01-03] MEDS: *HR* OxyCODONE/APAP 10/325 TABLET PO PRN (09:18)
[2020-01-03] MEDS: Apixaban 5 MG TABLET PO SCH (09:18)
[2020-01-03] MEDS: Insulin DETEMIR 100 UNIT/ML X5UNITS SQ SCH (09:25)
[2020-01-03] MEDS: hydrALAZINE 25 MG TABLET PO SCH (09:55)
== END 2020-01-03 13:10 | disposition home health service (06) ==
LOC: EMEROOPIK 21:36 → INPPIK 21:36
PROVIDERS: ADMIT Family Medicine; ATTEND Family Medicine

== ENCOUNTER 2020-06-11 14:41 | Inpatient (IN) ==
[2020-06-11] MEDS ORDERED: *HR* LORazepam 0.5 MG TABLET PO PRN (15:07)
[2020-06-11] MEDS: carvediloL 25 MG TABLET PO SCH (17:59)
[2020-06-11] MEDS: *HR* OxyCODONE/APAP 10/325 TABLET PO PRN (19:36)
[2020-06-11] MEDS: Gabapentin 300 MG CAPSULE PO SCH (19:37)
[2020-06-11] MEDS: Apixaban 5 MG TABLET PO SCH (19:37)
[2020-06-11] MEDS: Insulin DETEMIR 100 UNIT/ML X5UNITS SUBQ SCH (19:38)
[2020-06-11] MEDS ORDERED: Insulin LISPRO 300 UNITS/3 ML VIAL SUBQ SCH (21:00)
[2020-06-12] MEDS: *HR* OxyCODONE/APAP 10/325 TABLET PO PRN ×3 (05:05→17:32)
[2020-06-12 05:53] LABS: Basophils % 0.2 %; Eosinophils # 0.2 K/mcL (0.0-0.6); Eosinophils % 3.2 %; Hematocrit 28.1 % (35.3-44.9); Hemoglobin 8.9 g/dL (11.5-15.4); Immature Granulocytes % 0.4 % (0-4); Lymphocytes # 1.5 K/mcL (0.6-4.6); Lymphocytes % 27.6 %; Mean Corpuscular HGB Conc 31.7 g/dL (31.6-35.5); Mean Corpuscular Hemoglobin 32.5 pg (28.0-33.3); Mean Corpuscular Volume 102.6 fL (83.0-100.0); Mean Platelet Volume 10.3 fL (9.4-12.4); Monocytes # 0.4 K/mcL (0.0-1.3); Monocytes % 7.6 %; Neutrophils # 3.3 K/mcL (1.6-8.9); Platelet Count 163 K/mcL (140-400); Red Blood Count 2.74 M/mcL (3.82-4.97); Red Cell Distribution Width 13.4 % (11.5-14.5); White Blood Count 5.4 K/mcL (4.3-11.1)
[2020-06-12 06:12] LABS: Calcium 8.3 mg/dL (8.6-10.3)
[2020-06-12] MEDS ORDERED: Insulin LISPRO 300 UNITS/3 ML VIAL SUBQ SCH (07:30)
[2020-06-12] MEDS: lisinopriL 20 MG TABLET PO SCH (08:11)
[2020-06-12] MEDS: Apixaban 5 MG TABLET PO SCH ×2 (08:11→20:51)
[2020-06-12] MEDS: polyethylene glycoL 3350 17 GM POWD.PACK PO PRN (08:11)
[2020-06-12] MEDS: Magnesium Oxide 400 MG TABLET PO SCH (08:12)
[2020-06-12] MEDS: Loratadine 10 MG TABLET PO SCH (08:12)
[2020-06-12] MEDS: Furosemide 40 MG TABLET PO SCH (08:12)
[2020-06-12] MEDS: DilTIAZem CD (24hr) 240 MG CAP.ER.24H PO SCH (08:12)
[2020-06-12] MEDS: carvediloL 25 MG TABLET PO SCH ×2 (08:12→17:27)
[2020-06-12] MEDS: Gabapentin 300 MG CAPSULE PO SCH ×3 (08:12→20:51)
[2020-06-12] MEDS: NATEGLINIDE 60 MG PO SCH ×3 (08:13→17:20)
[2020-06-12] MEDS ORDERED: *HR* Dextrose 50 % in Water (Vial) 50 ML VIAL IVP PRN (09:14)
[2020-06-12] MEDS ORDERED: Dextrose Gel 15 GM/37.5 ML TUBE PO PRN ×2 (09:14)
[2020-06-12] MEDS ORDERED: D5% in Water 1,000 ML IVC PRN (09:14)
[2020-06-12] MEDS: Insulin LISPRO 300 UNITS/3 ML VIAL SUBQ SCH ×3 (11:29→21:00)
[2020-06-12] MEDS: Ondansetron ODT 4 MG TAB.RAPDIS PO PRN (17:58)
[2020-06-12] MEDS: Sennosides/Docusate Sodium TABLET PO SCH (20:51)
[2020-06-12] MEDS: Insulin DETEMIR 100 UNIT/ML X5UNITS SUBQ SCH (21:02)
[2020-06-13 05:50] LABS: Basophils % 0.2 %; Eosinophils # 0.2 K/mcL (0.0-0.6); Eosinophils % 3.3 %; Hematocrit 28.8 % (35.3-44.9); Immature Granulocytes % 0.4 % (0-4); Lymphocytes # 1.5 K/mcL (0.6-4.6); Lymphocytes % 29.3 %; Mean Corpuscular HGB Conc 31.3 g/dL (31.6-35.5); Mean Corpuscular Hemoglobin 32.5 pg (28.0-33.3); Mean Platelet Volume 10.6 fL (9.4-12.4); Monocytes # 0.4 K/mcL (0.0-1.3); Monocytes % 7.1 %; Neutrophils # 3.1 K/mcL (1.6-8.9); Platelet Count 182 K/mcL (140-400); Red Blood Count 2.77 M/mcL (3.82-4.97); Red Cell Distribution Width 13.8 % (11.5-14.5); Segmented Neutrophils % 59.7 %; White Blood Count 5.2 K/mcL (4.3-11.1)
[2020-06-13] MEDS: Apixaban 5 MG TABLET PO SCH ×2 (08:57→22:06)
[2020-06-13] MEDS: Loratadine 10 MG TABLET PO SCH (08:58)
[2020-06-13] MEDS: Gabapentin 300 MG CAPSULE PO SCH ×3 (08:58→22:06)
[2020-06-13] MEDS: Sennosides/Docusate Sodium TABLET PO SCH ×2 (08:58→22:06)
[2020-06-13] MEDS: carvediloL 25 MG TABLET PO SCH ×2 (08:58→16:39)
[2020-06-13] MEDS: DilTIAZem CD (24hr) 240 MG CAP.ER.24H PO SCH (08:58)
[2020-06-13] MEDS: lisinopriL 20 MG TABLET PO SCH (08:59)
[2020-06-13] MEDS: Furosemide 40 MG TABLET PO SCH (08:59)
[2020-06-13] MEDS: Magnesium Oxide 400 MG TABLET PO SCH (08:59)
[2020-06-13] MEDS: *HR* OxyCODONE/APAP 10/325 TABLET PO PRN ×4 (08:59→22:05)
[2020-06-13] MEDS: Insulin LISPRO 300 UNITS/3 ML VIAL SUBQ SCH ×4 (09:00→22:07)
[2020-06-13] MEDS: NATEGLINIDE 60 MG PO SCH ×3 (09:00→16:42)
[2020-06-13] MEDS: Ondansetron ODT 4 MG TAB.RAPDIS PO PRN (10:09)
[2020-06-13 13:15] LABS: Folate 11.1 ng/mL (3.0-16.0)
[2020-06-13] MEDS: Insulin DETEMIR 100 UNIT/ML X5UNITS SUBQ SCH (22:07)
[2020-06-14] MEDS: *HR* OxyCODONE/APAP 10/325 TABLET PO PRN ×3 (06:06→18:43)
[2020-06-14] MEDS: Insulin LISPRO 300 UNITS/3 ML VIAL SUBQ SCH ×4 (08:53→17:46)
[2020-06-14] MEDS: lisinopriL 20 MG TABLET PO SCH (08:54)
[2020-06-14] MEDS: Gabapentin 300 MG CAPSULE PO SCH ×3 (08:54→20:38)
[2020-06-14] MEDS: DilTIAZem CD (24hr) 240 MG CAP.ER.24H PO SCH (08:54)
[2020-06-14] MEDS: Magnesium Oxide 400 MG TABLET PO SCH (08:55)
[2020-06-14] MEDS: carvediloL 25 MG TABLET PO SCH ×2 (08:56→17:45)
[2020-06-14] MEDS: Furosemide 40 MG TABLET PO SCH (08:56)
[2020-06-14] MEDS: Loratadine 10 MG TABLET PO SCH (08:56)
[2020-06-14] MEDS: Apixaban 5 MG TABLET PO SCH ×2 (08:56→20:39)
[2020-06-14] MEDS: Sennosides/Docusate Sodium TABLET PO SCH ×2 (08:56→20:39)
[2020-06-14] MEDS: NATEGLINIDE 60 MG PO SCH ×3 (08:57→17:51)
[2020-06-14] MEDS ORDERED: *HR* OxyCODONE/APAP 10/325 TABLET PO STA (09:33)
[2020-06-14] MEDS: Cyanocobalamin (B-12) 1,000 MCG TABLET PO SCH (14:20)
[2020-06-14] MEDS: Cholecalciferol (D-3) 1,000 UNIT (25MCG) TABLET PO SCH (14:21)
[2020-06-14 15:37] LABS: Basophils % 0.3 %; Eosinophils # 0.3 K/mcL (0.0-0.6); Eosinophils % 4.4 %; Hemoglobin 9.4 g/dL (11.5-15.4); Immature Granulocytes % 0.3 % (0-4); Lymphocytes # 1.5 K/mcL (0.6-4.6); Mean Corpuscular HGB Conc 31.3 g/dL (31.6-35.5); Mean Corpuscular Hemoglobin 33.1 pg (28.0-33.3); Mean Corpuscular Volume 105.6 fL (83.0-100.0); Mean Platelet Volume 10.3 fL (9.4-12.4); Monocytes # 0.4 K/mcL (0.0-1.3); Monocytes % 5.8 %; Neutrophils # 4.2 K/mcL (1.6-8.9); Platelet Count 215 K/mcL (140-400); Red Blood Count 2.84 M/mcL (3.82-4.97); Segmented Neutrophils % 65.2 %; White Blood Count 6.4 K/mcL (4.3-11.1)
[2020-06-14] MEDS: Ondansetron ODT 4 MG TAB.RAPDIS PO PRN (20:13)
[2020-06-14] MEDS: Insulin DETEMIR 100 UNIT/ML X5UNITS SUBQ SCH (20:39)
[2020-06-15] MEDS: *HR* OxyCODONE/APAP 10/325 TABLET PO PRN ×4 (00:09→20:19)
[2020-06-15] MEDS: Insulin LISPRO 300 UNITS/3 ML VIAL SUBQ SCH ×5 (07:28→16:35)
[2020-06-15] MEDS: polyethylene glycoL 3350 17 GM POWD.PACK PO PRN (09:40)
[2020-06-15] MEDS: Cholecalciferol (D-3) 1,000 UNIT (25MCG) TABLET PO SCH (09:42)
[2020-06-15] MEDS: Apixaban 5 MG TABLET PO SCH ×2 (09:42→20:19)
[2020-06-15] MEDS: Gabapentin 300 MG CAPSULE PO SCH ×3 (09:42→20:18)
[2020-06-15] MEDS: DilTIAZem CD (24hr) 240 MG CAP.ER.24H PO SCH (09:43)
[2020-06-15] MEDS: carvediloL 25 MG TABLET PO SCH ×2 (09:43→16:30)
[2020-06-15] MEDS: Sennosides/Docusate Sodium TABLET PO SCH ×2 (09:44→20:18)
[2020-06-15] MEDS: lisinopriL 20 MG TABLET PO SCH (09:44)
[2020-06-15] MEDS: Cyanocobalamin (B-12) 1,000 MCG TABLET PO SCH (09:44)
[2020-06-15] MEDS: Loratadine 10 MG TABLET PO SCH (09:44)
[2020-06-15] MEDS: Magnesium Oxide 400 MG TABLET PO SCH (09:44)
[2020-06-15] MEDS: Furosemide 40 MG TABLET PO SCH (09:44)
[2020-06-15] MEDS: NATEGLINIDE 60 MG PO SCH ×3 (09:45→16:37)
[2020-06-15] MEDS: Insulin DETEMIR 100 UNIT/ML X5UNITS SUBQ SCH (20:20)
[2020-06-16] MEDS: *HR* OxyCODONE/APAP 10/325 TABLET PO PRN ×5 (00:40→20:55)
[2020-06-16] MEDS: Insulin LISPRO 300 UNITS/3 ML VIAL SUBQ SCH ×5 (07:08→16:50)
[2020-06-16 07:43] LABS: Basophils % 0.2 %; Eosinophils # 0.3 K/mcL (0.0-0.6); Eosinophils % 5.4 %; Hematocrit 28.8 % (35.3-44.9); Immature Granulocytes % 0.2 % (0-4); Lymphocytes # 1.6 K/mcL (0.6-4.6); Lymphocytes % 30.6 %; Mean Corpuscular HGB Conc 31.3 g/dL (31.6-35.5); Mean Corpuscular Hemoglobin 32.8 pg (28.0-33.3); Mean Corpuscular Volume 105.1 fL (83.0-100.0); Mean Platelet Volume 10.5 fL (9.4-12.4); Monocytes # 0.6 K/mcL (0.0-1.3); Monocytes % 11.4 %; Neutrophils # 2.7 K/mcL (1.6-8.9); Platelet Count 231 K/mcL (140-400); Red Blood Count 2.74 M/mcL (3.82-4.97); Red Cell Distribution Width 14.2 % (11.5-14.5); Segmented Neutrophils % 52.2 %; White Blood Count 5.2 K/mcL (4.3-11.1)
[2020-06-16 08:03] LABS: Calcium 8.4 mg/dL (8.6-10.3); Potassium 4.4 mEq/L (3.5-5.1)
[2020-06-16] MEDS: Furosemide 40 MG TABLET PO SCH (08:27)
[2020-06-16] MEDS: Gabapentin 300 MG CAPSULE PO SCH ×3 (08:27→21:11)
[2020-06-16] MEDS: DilTIAZem CD (24hr) 240 MG CAP.ER.24H PO SCH (08:28)
[2020-06-16] MEDS: Apixaban 5 MG TABLET PO SCH ×2 (08:29→20:56)
[2020-06-16] MEDS: lisinopriL 20 MG TABLET PO SCH (08:29)
[2020-06-16] MEDS: Sennosides/Docusate Sodium TABLET PO SCH ×2 (08:29→20:54)
[2020-06-16] MEDS: Cyanocobalamin (B-12) 1,000 MCG TABLET PO SCH (08:29)
[2020-06-16] MEDS: Magnesium Oxide 400 MG TABLET PO SCH (08:29)
[2020-06-16] MEDS: Loratadine 10 MG TABLET PO SCH (08:29)
[2020-06-16] MEDS: carvediloL 25 MG TABLET PO SCH ×2 (08:29→16:36)
[2020-06-16] MEDS: Cholecalciferol (D-3) 1,000 UNIT (25MCG) TABLET PO SCH (08:29)
[2020-06-16] MEDS: NATEGLINIDE 60 MG PO SCH ×3 (08:29→18:07)
[2020-06-16] MEDS: Insulin DETEMIR 100 UNIT/ML X5UNITS SUBQ SCH (20:57)
[2020-06-17] MEDS: *HR* OxyCODONE/APAP 10/325 TABLET PO PRN ×4 (01:04→19:44)
[2020-06-17] MEDS: Insulin LISPRO 300 UNITS/3 ML VIAL SUBQ SCH ×5 (07:37→17:10)
[2020-06-17] MEDS: Loratadine 10 MG TABLET PO SCH (08:26)
[2020-06-17] MEDS: Cholecalciferol (D-3) 1,000 UNIT (25MCG) TABLET PO SCH (08:26)
[2020-06-17] MEDS: Magnesium Oxide 400 MG TABLET PO SCH (08:27)
[2020-06-17] MEDS: Cyanocobalamin (B-12) 1,000 MCG TABLET PO SCH (08:27)
[2020-06-17] MEDS: Furosemide 40 MG TABLET PO SCH (08:27)
[2020-06-17] MEDS: lisinopriL 20 MG TABLET PO SCH (08:27)
[2020-06-17] MEDS: carvediloL 25 MG TABLET PO SCH ×2 (08:27→17:09)
[2020-06-17] MEDS: Apixaban 5 MG TABLET PO SCH ×2 (08:28→19:41)
[2020-06-17] MEDS: Gabapentin 300 MG CAPSULE PO SCH ×3 (08:28→19:41)
[2020-06-17] MEDS: DilTIAZem CD (24hr) 240 MG CAP.ER.24H PO SCH (08:29)
[2020-06-17] MEDS: Sennosides/Docusate Sodium TABLET PO SCH ×2 (08:29→19:41)
[2020-06-17] MEDS: NATEGLINIDE 60 MG PO SCH ×3 (08:30→17:14)
[2020-06-17] MEDS: Insulin DETEMIR 100 UNIT/ML X5UNITS SUBQ SCH (20:29)
[2020-06-18] MEDS: *HR* OxyCODONE/APAP 10/325 TABLET PO PRN ×4 (03:02→20:37)
[2020-06-18] MEDS: Insulin LISPRO 300 UNITS/3 ML VIAL SUBQ SCH ×5 (07:43→16:51)
[2020-06-18] MEDS: DilTIAZem CD (24hr) 240 MG CAP.ER.24H PO SCH (08:28)
[2020-06-18] MEDS: Sennosides/Docusate Sodium TABLET PO SCH ×2 (08:28→20:38)
[2020-06-18] MEDS: Magnesium Oxide 400 MG TABLET PO SCH (08:28)
[2020-06-18] MEDS: Cyanocobalamin (B-12) 1,000 MCG TABLET PO SCH (08:28)
[2020-06-18] MEDS: Furosemide 40 MG TABLET PO SCH (08:28)
[2020-06-18] MEDS: Apixaban 5 MG TABLET PO SCH ×2 (08:29→20:38)
[2020-06-18] MEDS: lisinopriL 20 MG TABLET PO SCH (08:29)
[2020-06-18] MEDS: Loratadine 10 MG TABLET PO SCH (08:29)
[2020-06-18] MEDS: Cholecalciferol (D-3) 1,000 UNIT (25MCG) TABLET PO SCH (08:29)
[2020-06-18] MEDS: carvediloL 25 MG TABLET PO SCH ×2 (08:29→16:58)
[2020-06-18] MEDS: Gabapentin 300 MG CAPSULE PO SCH ×3 (08:29→20:37)
[2020-06-18] MEDS: NATEGLINIDE 60 MG PO SCH ×3 (08:30→16:59)
[2020-06-19] MEDS: *HR* OxyCODONE/APAP 10/325 TABLET PO PRN ×2 (07:51→17:54)
[2020-06-19] MEDS: carvediloL 25 MG TABLET PO SCH ×2 (07:52→17:51)
[2020-06-19] MEDS: Insulin LISPRO 300 UNITS/3 ML VIAL SUBQ SCH ×5 (08:03→16:27)
[2020-06-19] MEDS: Furosemide 40 MG TABLET PO SCH (08:35)
[2020-06-19] MEDS: Cyanocobalamin (B-12) 1,000 MCG TABLET PO SCH (08:35)
[2020-06-19] MEDS: Gabapentin 300 MG CAPSULE PO SCH ×3 (08:35→20:33)
[2020-06-19] MEDS: Cholecalciferol (D-3) 1,000 UNIT (25MCG) TABLET PO SCH (08:36)
[2020-06-19] MEDS: Sennosides/Docusate Sodium TABLET PO SCH ×2 (08:36→20:33)
[2020-06-19] MEDS: Magnesium Oxide 400 MG TABLET PO SCH (08:36)
[2020-06-19] MEDS: Apixaban 5 MG TABLET PO SCH ×2 (08:36→20:33)
[2020-06-19] MEDS: lisinopriL 20 MG TABLET PO SCH (08:37)
[2020-06-19] MEDS: Loratadine 10 MG TABLET PO SCH (08:37)
[2020-06-19] MEDS: DilTIAZem CD (24hr) 240 MG CAP.ER.24H PO SCH (08:37)
[2020-06-19] MEDS: NATEGLINIDE 60 MG PO SCH ×3 (08:38→16:21)
[2020-06-19] MEDS: *HR* LORazepam 0.5 MG TABLET PO PRN (14:15)
[2020-06-20] MEDS: *HR* OxyCODONE/APAP 10/325 TABLET PO PRN ×3 (02:00→20:34)
[2020-06-20] MEDS: DilTIAZem CD (24hr) 240 MG CAP.ER.24H PO SCH (08:08)
[2020-06-20] MEDS: lisinopriL 20 MG TABLET PO SCH (08:09)
[2020-06-20] MEDS: carvediloL 25 MG TABLET PO SCH ×2 (08:09→17:23)
[2020-06-20] MEDS: Magnesium Oxide 400 MG TABLET PO SCH (08:09)
[2020-06-20] MEDS: Cholecalciferol (D-3) 1,000 UNIT (25MCG) TABLET PO SCH (08:09)
[2020-06-20] MEDS: Sennosides/Docusate Sodium TABLET PO SCH ×2 (08:10→20:33)
[2020-06-20] MEDS: Cyanocobalamin (B-12) 1,000 MCG TABLET PO SCH (08:10)
[2020-06-20] MEDS: Furosemide 40 MG TABLET PO SCH (08:10)
[2020-06-20] MEDS: Apixaban 5 MG TABLET PO SCH ×2 (08:10→20:34)
[2020-06-20] MEDS: Loratadine 10 MG TABLET PO SCH (08:10)
[2020-06-20] MEDS: Gabapentin 300 MG CAPSULE PO SCH ×3 (08:11→20:34)
[2020-06-20] MEDS: NATEGLINIDE 60 MG PO SCH ×4 (08:11→17:25)
[2020-06-20] MEDS: Insulin LISPRO 300 UNITS/3 ML VIAL SUBQ SCH ×5 (08:11→17:24)
[2020-06-20 09:15] LABS: Basophils % 0.2 %; Eosinophils # 0.2 K/mcL (0.0-0.6); Eosinophils % 3.9 %; Hematocrit 30.6 % (35.3-44.9); Hemoglobin 9.7 g/dL (11.5-15.4); Immature Granulocytes % 0.2 % (0-4); Lymphocytes % 23.9 %; Mean Corpuscular HGB Conc 31.7 g/dL (31.6-35.5); Mean Corpuscular Hemoglobin 33.2 pg (28.0-33.3); Mean Corpuscular Volume 104.8 fL (83.0-100.0); Monocytes # 0.3 K/mcL (0.0-1.3); Monocytes % 6.4 %; Neutrophils # 2.8 K/mcL (1.6-8.9); Platelet Count 245 K/mcL (140-400); Red Blood Count 2.92 M/mcL (3.82-4.97); Red Cell Distribution Width 14.1 % (11.5-14.5); Segmented Neutrophils % 65.4 %; White Blood Count 4.4 K/mcL (4.3-11.1)
[2020-06-20 09:35] LABS: Albumin 2.5 g/dL (3.5-5.7); Bilirubin,Total 0.3 mg/dL (0.3-1.0); Calcium 8.1 mg/dL (8.6-10.3); Globulin 2.5 g/dL (2.4-3.5); Potassium 3.8 mEq/L (3.5-5.1)
[2020-06-20] MEDS: Insulin DETEMIR 100 UNIT/ML X5UNITS SUBQ SCH (11:19)
[2020-06-20] MEDS: Acetaminophen 325 MG TABLET PO SCH (17:23)
[2020-06-21] MEDS: Acetaminophen 325 MG TABLET PO SCH ×4 (06:03→17:10)
[2020-06-21] MEDS: lisinopriL 20 MG TABLET PO SCH (07:37)
[2020-06-21] MEDS: carvediloL 25 MG TABLET PO SCH ×2 (07:37→17:09)
[2020-06-21] MEDS: Cholecalciferol (D-3) 1,000 UNIT (25MCG) TABLET PO SCH (07:37)
[2020-06-21] MEDS: Gabapentin 300 MG CAPSULE PO SCH ×3 (07:37→21:08)
[2020-06-21] MEDS: Magnesium Oxide 400 MG TABLET PO SCH (07:37)
[2020-06-21] MEDS: Apixaban 5 MG TABLET PO SCH ×2 (07:38→21:07)
[2020-06-21] MEDS: Cyanocobalamin (B-12) 1,000 MCG TABLET PO SCH (07:38)
[2020-06-21] MEDS: Furosemide 40 MG TABLET PO SCH (07:38)
[2020-06-21] MEDS: Loratadine 10 MG TABLET PO SCH (07:39)
[2020-06-21] MEDS: DilTIAZem CD (24hr) 240 MG CAP.ER.24H PO SCH (07:39)
[2020-06-21] MEDS: NATEGLINIDE 60 MG PO SCH ×3 (07:39→16:16)
[2020-06-21] MEDS: Insulin LISPRO 300 UNITS/3 ML VIAL SUBQ SCH ×4 (07:40→16:16)
[2020-06-21] MEDS: Sennosides/Docusate Sodium TABLET PO SCH ×2 (07:44→21:07)
[2020-06-21] MEDS: *HR* OxyCODONE/APAP 10/325 TABLET PO PRN ×2 (07:55→21:08)
[2020-06-21] MEDS: Insulin DETEMIR 100 UNIT/ML X5UNITS SUBQ SCH (07:56)
[2020-06-21] MEDS: Ondansetron ODT 4 MG TAB.RAPDIS PO PRN (07:58)
[2020-06-22] MEDS: Acetaminophen 325 MG TABLET PO SCH ×5 (03:02→22:56)
[2020-06-22] MEDS: *HR* OxyCODONE/APAP 10/325 TABLET PO PRN ×2 (07:38→16:43)
[2020-06-22] MEDS: Magnesium Oxide 400 MG TABLET PO SCH (07:38)
[2020-06-22] MEDS: Cholecalciferol (D-3) 1,000 UNIT (25MCG) TABLET PO SCH (07:38)
[2020-06-22] MEDS: Sennosides/Docusate Sodium TABLET PO SCH ×2 (07:38→20:41)
[2020-06-22] MEDS: lisinopriL 20 MG TABLET PO SCH (07:39)
[2020-06-22] MEDS: Apixaban 5 MG TABLET PO SCH ×2 (07:39→20:40)
[2020-06-22] MEDS: carvediloL 25 MG TABLET PO SCH ×2 (07:39→16:37)
[2020-06-22] MEDS: Loratadine 10 MG TABLET PO SCH (07:39)
[2020-06-22] MEDS: Cyanocobalamin (B-12) 1,000 MCG TABLET PO SCH (07:39)
[2020-06-22] MEDS: DilTIAZem CD (24hr) 240 MG CAP.ER.24H PO SCH (07:39)
[2020-06-22] MEDS: Gabapentin 300 MG CAPSULE PO SCH ×3 (07:39→20:40)
[2020-06-22] MEDS: Insulin LISPRO 300 UNITS/3 ML VIAL SUBQ SCH ×3 (07:40→16:37)
[2020-06-22] MEDS: Furosemide 40 MG TABLET PO SCH (07:40)
[2020-06-22] MEDS: Insulin DETEMIR 100 UNIT/ML X5UNITS SUBQ SCH (07:49)
[2020-06-22] MEDS: NATEGLINIDE 60 MG PO SCH ×3 (07:49→16:37)
[2020-06-22] MEDS: *HR* LORazepam 0.5 MG TABLET PO PRN (23:05)
[2020-06-23] MEDS: Acetaminophen 325 MG TABLET PO SCH ×3 (05:29→16:57)
[2020-06-23] MEDS: *HR* OxyCODONE/APAP 10/325 TABLET PO PRN ×2 (06:40→13:32)
[2020-06-23] MEDS: Cholecalciferol (D-3) 1,000 UNIT (25MCG) TABLET PO SCH (09:02)
[2020-06-23] MEDS: lisinopriL 20 MG TABLET PO SCH (09:03)
[2020-06-23] MEDS: Furosemide 40 MG TABLET PO SCH (09:03)
[2020-06-23] MEDS: Cyanocobalamin (B-12) 1,000 MCG TABLET PO SCH (09:03)
[2020-06-23] MEDS: DilTIAZem CD (24hr) 240 MG CAP.ER.24H PO SCH (09:03)
[2020-06-23] MEDS: carvediloL 25 MG TABLET PO SCH ×2 (09:03→16:57)
[2020-06-23] MEDS: Loratadine 10 MG TABLET PO SCH (09:03)
[2020-06-23] MEDS: Apixaban 5 MG TABLET PO SCH ×2 (09:03→20:45)
[2020-06-23] MEDS: Gabapentin 300 MG CAPSULE PO SCH ×3 (09:03→20:44)
[2020-06-23] MEDS: Magnesium Oxide 400 MG TABLET PO SCH (09:03)
[2020-06-23] MEDS: Insulin LISPRO 300 UNITS/3 ML VIAL SUBQ SCH ×3 (09:10→16:58)
[2020-06-23] MEDS: Insulin DETEMIR 100 UNIT/ML X5UNITS SUBQ SCH (09:10)
[2020-06-23] MEDS: Ondansetron ODT 4 MG TAB.RAPDIS PO PRN (09:35)
[2020-06-23] MEDS: NATEGLINIDE 60 MG PO SCH ×3 (10:17→16:58)
[2020-06-23] MEDS: Sennosides/Docusate Sodium TABLET PO SCH ×2 (10:17→20:45)
[2020-06-24] MEDS: Acetaminophen 325 MG TABLET PO SCH ×4 (00:36→16:21)
[2020-06-24] MEDS: *HR* OxyCODONE/APAP 10/325 TABLET PO PRN ×3 (02:11→20:38)
[2020-06-24] MEDS: Insulin LISPRO 300 UNITS/3 ML VIAL SUBQ SCH ×3 (08:38→16:15)
[2020-06-24] MEDS: Cholecalciferol (D-3) 1,000 UNIT (25MCG) TABLET PO SCH (08:40)
[2020-06-24] MEDS: Apixaban 5 MG TABLET PO SCH ×2 (08:40→20:38)
[2020-06-24] MEDS: carvediloL 25 MG TABLET PO SCH ×2 (08:41→16:21)
[2020-06-24] MEDS: lisinopriL 20 MG TABLET PO SCH (08:41)
[2020-06-24] MEDS: Magnesium Oxide 400 MG TABLET PO SCH (08:41)
[2020-06-24] MEDS: Sennosides/Docusate Sodium TABLET PO SCH ×2 (08:41→20:38)
[2020-06-24] MEDS: DilTIAZem CD (24hr) 240 MG CAP.ER.24H PO SCH (08:41)
[2020-06-24] MEDS: Loratadine 10 MG TABLET PO SCH (08:42)
[2020-06-24] MEDS: Gabapentin 300 MG CAPSULE PO SCH ×3 (08:42→20:37)
[2020-06-24] MEDS: Cyanocobalamin (B-12) 1,000 MCG TABLET PO SCH (08:42)
[2020-06-24] MEDS: Furosemide 40 MG TABLET PO SCH (08:42)
[2020-06-24] MEDS: NATEGLINIDE 60 MG PO SCH ×3 (08:43→16:16)
[2020-06-24] MEDS: Ondansetron ODT 4 MG TAB.RAPDIS PO PRN (08:55)
[2020-06-24] MEDS: Insulin DETEMIR 100 UNIT/ML X5UNITS SUBQ SCH (09:05)
[2020-06-24] MEDS: *HR* LORazepam 0.5 MG TABLET PO PRN (14:51)
[2020-06-25] MEDS: Acetaminophen 325 MG TABLET PO SCH ×5 (01:08→23:01)
[2020-06-25] MEDS: Cyanocobalamin (B-12) 1,000 MCG TABLET PO SCH (08:22)
[2020-06-25] MEDS: *HR* OxyCODONE/APAP 10/325 TABLET PO PRN ×2 (08:22→16:25)
[2020-06-25] MEDS: carvediloL 25 MG TABLET PO SCH ×2 (08:23→16:31)
[2020-06-25] MEDS: Loratadine 10 MG TABLET PO SCH (08:23)
[2020-06-25] MEDS: Magnesium Oxide 400 MG TABLET PO SCH (08:23)
[2020-06-25] MEDS: DilTIAZem CD (24hr) 240 MG CAP.ER.24H PO SCH (08:23)
[2020-06-25] MEDS: Cholecalciferol (D-3) 1,000 UNIT (25MCG) TABLET PO SCH (08:23)
[2020-06-25] MEDS: lisinopriL 20 MG TABLET PO SCH (08:23)
[2020-06-25] MEDS: Apixaban 5 MG TABLET PO SCH ×2 (08:23→22:59)
[2020-06-25] MEDS: Sennosides/Docusate Sodium TABLET PO SCH ×2 (08:23→22:59)
[2020-06-25] MEDS: Furosemide 40 MG TABLET PO SCH (08:24)
[2020-06-25] MEDS: Insulin DETEMIR 100 UNIT/ML X5UNITS SUBQ SCH (08:24)
[2020-06-25] MEDS: Gabapentin 300 MG CAPSULE PO SCH ×3 (08:24→22:59)
[2020-06-25] MEDS: NATEGLINIDE 60 MG PO SCH ×3 (08:25→17:41)
[2020-06-25] MEDS: Insulin LISPRO 300 UNITS/3 ML VIAL SUBQ SCH ×3 (08:25→16:18)
[2020-06-26] MEDS: Acetaminophen 325 MG TABLET PO SCH ×3 (06:32→17:52)
[2020-06-26 07:21] LABS: Basophils % 0.2 %; Eosinophils # 0.2 K/mcL (0.0-0.6); Hematocrit 32.9 % (35.3-44.9); Hemoglobin 10.2 g/dL (11.5-15.4); Lymphocytes # 1.7 K/mcL (0.6-4.6); Lymphocytes % 43.1 %; Mean Corpuscular Hemoglobin 32.5 pg (28.0-33.3); Mean Corpuscular Volume 104.8 fL (83.0-100.0); Mean Platelet Volume 9.6 fL (9.4-12.4); Monocytes # 0.3 K/mcL (0.0-1.3); Monocytes % 7.4 %; Neutrophils # 1.8 K/mcL (1.6-8.9); Platelet Count 251 K/mcL (140-400); Red Blood Count 3.14 M/mcL (3.82-4.97); Segmented Neutrophils % 44.3 %
[2020-06-26 07:52] LABS: Calcium 8.1 mg/dL (8.6-10.3); Potassium 3.6 mEq/L (3.5-5.1)
[2020-06-26] MEDS: Ondansetron ODT 4 MG TAB.RAPDIS PO PRN (09:48)
[2020-06-26] MEDS: *HR* OxyCODONE/APAP 10/325 TABLET PO PRN ×2 (09:49→20:10)
[2020-06-26] MEDS: Insulin LISPRO 300 UNITS/3 ML VIAL SUBQ SCH ×3 (09:49→17:51)
[2020-06-26] MEDS: Furosemide 40 MG TABLET PO SCH (09:50)
[2020-06-26] MEDS: Folic Acid 1 MG TABLET PO SCH (09:50)
[2020-06-26] MEDS: Cyanocobalamin (B-12) 1,000 MCG TABLET PO SCH (09:50)
[2020-06-26] MEDS: Gabapentin 300 MG CAPSULE PO SCH ×3 (09:50→20:10)
[2020-06-26] MEDS: lisinopriL 20 MG TABLET PO SCH (09:50)
[2020-06-26] MEDS: Sennosides/Docusate Sodium TABLET PO SCH ×2 (09:50→20:11)
[2020-06-26] MEDS: DilTIAZem CD (24hr) 240 MG CAP.ER.24H PO SCH (09:50)
[2020-06-26] MEDS: Apixaban 5 MG TABLET PO SCH ×2 (09:51→20:10)
[2020-06-26] MEDS: Loratadine 10 MG TABLET PO SCH (09:51)
[2020-06-26] MEDS: Insulin DETEMIR 100 UNIT/ML X5UNITS SUBQ SCH (09:51)
[2020-06-26] MEDS: Cholecalciferol (D-3) 1,000 UNIT (25MCG) TABLET PO SCH (09:51)
[2020-06-26] MEDS: Magnesium Oxide 400 MG TABLET PO SCH (09:51)
[2020-06-26] MEDS: carvediloL 25 MG TABLET PO SCH ×2 (09:51→17:52)
[2020-06-26] MEDS: NATEGLINIDE 60 MG PO SCH ×3 (09:52→17:52)
[2020-06-26] MEDS ORDERED: Naloxone 0.4 MG/ML INJ IM PRN (14:58)
[2020-06-27] MEDS: Acetaminophen 325 MG TABLET PO SCH ×5 (01:44→23:31)
[2020-06-27] MEDS: Insulin LISPRO 300 UNITS/3 ML VIAL SUBQ SCH ×3 (07:36→16:07)
[2020-06-27] MEDS: Sennosides/Docusate Sodium TABLET PO SCH ×2 (08:50→20:23)
[2020-06-27] MEDS: Cyanocobalamin (B-12) 1,000 MCG TABLET PO SCH (08:50)
[2020-06-27] MEDS: DilTIAZem CD (24hr) 240 MG CAP.ER.24H PO SCH (08:50)
[2020-06-27] MEDS: Loratadine 10 MG TABLET PO SCH (08:51)
[2020-06-27] MEDS: Gabapentin 300 MG CAPSULE PO SCH ×3 (08:51→20:22)
[2020-06-27] MEDS: lisinopriL 20 MG TABLET PO SCH (08:51)
[2020-06-27] MEDS: carvediloL 25 MG TABLET PO SCH ×2 (08:51→16:30)
[2020-06-27] MEDS: Cholecalciferol (D-3) 1,000 UNIT (25MCG) TABLET PO SCH (08:52)
[2020-06-27] MEDS: Folic Acid 1 MG TABLET PO SCH (08:52)
[2020-06-27] MEDS: Magnesium Oxide 400 MG TABLET PO SCH (08:52)
[2020-06-27] MEDS: Apixaban 5 MG TABLET PO SCH ×2 (08:52→20:22)
[2020-06-27] MEDS: NATEGLINIDE 60 MG PO SCH ×3 (08:53→16:27)
[2020-06-27] MEDS: Furosemide 40 MG TABLET PO SCH (08:53)
[2020-06-27] MEDS: Insulin DETEMIR 100 UNIT/ML X5UNITS SUBQ SCH (08:54)
[2020-06-27] MEDS: *HR* OxyCODONE/APAP 10/325 TABLET PO PRN ×2 (09:07→20:22)
[2020-06-28] MEDS: *HR* OxyCODONE/APAP 10/325 TABLET PO PRN ×3 (03:51→20:41)
[2020-06-28] MEDS: Acetaminophen 325 MG TABLET PO SCH ×3 (05:49→17:03)
[2020-06-28] MEDS: Insulin LISPRO 300 UNITS/3 ML VIAL SUBQ SCH ×3 (07:35→17:03)
[2020-06-28] MEDS: NATEGLINIDE 60 MG PO SCH ×3 (07:36→18:56)
[2020-06-28] MEDS: Ondansetron ODT 4 MG TAB.RAPDIS PO PRN (09:10)
[2020-06-28] MEDS: Cyanocobalamin (B-12) 1,000 MCG TABLET PO SCH (09:11)
[2020-06-28] MEDS: Loratadine 10 MG TABLET PO SCH (09:12)
[2020-06-28] MEDS: lisinopriL 20 MG TABLET PO SCH (09:12)
[2020-06-28] MEDS: carvediloL 25 MG TABLET PO SCH ×2 (09:12→17:02)
[2020-06-28] MEDS: Cholecalciferol (D-3) 1,000 UNIT (25MCG) TABLET PO SCH (09:12)
[2020-06-28] MEDS: Gabapentin 300 MG CAPSULE PO SCH ×3 (09:12→20:41)
[2020-06-28] MEDS: Magnesium Oxide 400 MG TABLET PO SCH (09:12)
[2020-06-28] MEDS: DilTIAZem CD (24hr) 240 MG CAP.ER.24H PO SCH (09:13)
[2020-06-28] MEDS: Furosemide 40 MG TABLET PO SCH (09:13)
[2020-06-28] MEDS: Folic Acid 1 MG TABLET PO SCH (09:13)
[2020-06-28] MEDS: Apixaban 5 MG TABLET PO SCH ×2 (09:14→20:41)
[2020-06-28] MEDS: Insulin DETEMIR 100 UNIT/ML X5UNITS SUBQ SCH (09:18)
[2020-06-28] MEDS: Sennosides/Docusate Sodium TABLET PO SCH ×2 (09:22→20:41)
[2020-06-29] MEDS: Acetaminophen 325 MG TABLET PO SCH ×4 (00:42→21:22)
[2020-06-29] MEDS: Insulin LISPRO 300 UNITS/3 ML VIAL SUBQ SCH ×3 (07:57→15:48)
[2020-06-29] MEDS: Insulin DETEMIR 100 UNIT/ML X5UNITS SUBQ SCH (07:57)
[2020-06-29] MEDS: Apixaban 5 MG TABLET PO SCH ×2 (07:58→21:21)
[2020-06-29] MEDS: Magnesium Oxide 400 MG TABLET PO SCH (07:58)
[2020-06-29] MEDS: Cholecalciferol (D-3) 1,000 UNIT (25MCG) TABLET PO SCH (07:58)
[2020-06-29] MEDS: Gabapentin 300 MG CAPSULE PO SCH ×3 (08:02→21:21)
[2020-06-29] MEDS: DilTIAZem CD (24hr) 240 MG CAP.ER.24H PO SCH (08:02)
[2020-06-29] MEDS: Furosemide 40 MG TABLET PO SCH (08:02)
[2020-06-29] MEDS: Folic Acid 1 MG TABLET PO SCH (08:02)
[2020-06-29] MEDS: lisinopriL 20 MG TABLET PO SCH (08:02)
[2020-06-29] MEDS: Sennosides/Docusate Sodium TABLET PO SCH ×2 (08:03→21:21)
[2020-06-29] MEDS: NATEGLINIDE 60 MG PO SCH ×3 (08:03→16:50)
[2020-06-29] MEDS: carvediloL 25 MG TABLET PO SCH ×2 (08:03→16:49)
[2020-06-29] MEDS: Loratadine 10 MG TABLET PO SCH (08:03)
[2020-06-29] MEDS: *HR* OxyCODONE/APAP 10/325 TABLET PO PRN (08:08)
[2020-06-29] MEDS: Ondansetron ODT 4 MG TAB.RAPDIS PO PRN (11:08)
[2020-06-30] MEDS: Acetaminophen 325 MG TABLET PO SCH ×4 (00:10→18:47)
[2020-06-30] MEDS: Insulin LISPRO 300 UNITS/3 ML VIAL SUBQ SCH ×3 (07:48→16:42)
[2020-06-30] MEDS: Magnesium Oxide 400 MG TABLET PO SCH (08:05)
[2020-06-30] MEDS: Furosemide 40 MG TABLET PO SCH (08:06)
[2020-06-30] MEDS: Loratadine 10 MG TABLET PO SCH (08:06)
[2020-06-30] MEDS: *HR* OxyCODONE/APAP 10/325 TABLET PO PRN ×2 (08:06→16:41)
[2020-06-30] MEDS: Cholecalciferol (D-3) 1,000 UNIT (25MCG) TABLET PO SCH (08:06)
[2020-06-30] MEDS: Apixaban 5 MG TABLET PO SCH ×2 (08:06→21:39)
[2020-06-30] MEDS: carvediloL 25 MG TABLET PO SCH ×2 (08:06→16:40)
[2020-06-30] MEDS: Folic Acid 1 MG TABLET PO SCH (08:06)
[2020-06-30] MEDS: DilTIAZem CD (24hr) 240 MG CAP.ER.24H PO SCH (08:06)
[2020-06-30] MEDS: Gabapentin 300 MG CAPSULE PO SCH ×3 (08:06→21:39)
[2020-06-30] MEDS: lisinopriL 20 MG TABLET PO SCH (08:06)
[2020-06-30] MEDS: Sennosides/Docusate Sodium TABLET PO SCH ×2 (08:07→21:38)
[2020-06-30] MEDS: NATEGLINIDE 60 MG PO SCH ×3 (08:07→16:42)
[2020-06-30] MEDS: Insulin DETEMIR 100 UNIT/ML X5UNITS SUBQ SCH (08:08)
[2020-07-01] MEDS: Acetaminophen 325 MG TABLET PO SCH ×5 (01:40→23:52)
[2020-07-01] MEDS: *HR* OxyCODONE/APAP 10/325 TABLET PO PRN ×3 (06:01→23:45)
[2020-07-01 07:07] LABS: Basophils % 0.2 %; Eosinophils # 0.2 K/mcL (0.0-0.6); Eosinophils % 4.3 %; Hematocrit 34.4 % (35.3-44.9); Hemoglobin 10.6 g/dL (11.5-15.4); Immature Granulocytes % 0.2 % (0-4); Lymphocytes # 1.6 K/mcL (0.6-4.6); Lymphocytes % 30.1 %; Mean Corpuscular HGB Conc 30.8 g/dL (31.6-35.5); Mean Corpuscular Hemoglobin 32.6 pg (28.0-33.3); Mean Corpuscular Volume 105.8 fL (83.0-100.0); Mean Platelet Volume 10.1 fL (9.4-12.4); Monocytes # 0.4 K/mcL (0.0-1.3); Monocytes % 6.9 %; Neutrophils # 3.1 K/mcL (1.6-8.9); Platelet Count 222 K/mcL (140-400); Red Blood Count 3.25 M/mcL (3.82-4.97); Red Cell Distribution Width 13.6 % (11.5-14.5); Segmented Neutrophils % 58.3 %; White Blood Count 5.3 K/mcL (4.3-11.1)
[2020-07-01 07:34] LABS: Calcium 8.3 mg/dL (8.6-10.3); Potassium 3.4 mEq/L (3.5-5.1)
[2020-07-01] MEDS: carvediloL 25 MG TABLET PO SCH ×2 (08:24→18:26)
[2020-07-01] MEDS: lisinopriL 20 MG TABLET PO SCH (08:24)
[2020-07-01] MEDS: Sennosides/Docusate Sodium TABLET PO SCH (08:24)
[2020-07-01] MEDS: Gabapentin 300 MG CAPSULE PO SCH ×3 (08:25→23:45)
[2020-07-01] MEDS: Magnesium Oxide 400 MG TABLET PO SCH (08:25)
[2020-07-01] MEDS: Apixaban 5 MG TABLET PO SCH ×2 (08:25→23:44)
[2020-07-01] MEDS: Furosemide 40 MG TABLET PO SCH (08:25)
[2020-07-01] MEDS: Loratadine 10 MG TABLET PO SCH (08:25)
[2020-07-01] MEDS: Cholecalciferol (D-3) 1,000 UNIT (25MCG) TABLET PO SCH (08:26)
[2020-07-01] MEDS: NATEGLINIDE 60 MG PO SCH ×3 (08:26→18:30)
[2020-07-01] MEDS: Folic Acid 1 MG TABLET PO SCH (08:26)
[2020-07-01] MEDS: DilTIAZem CD (24hr) 240 MG CAP.ER.24H PO SCH (08:26)
[2020-07-01] MEDS: Insulin LISPRO 300 UNITS/3 ML VIAL SUBQ SCH ×3 (08:27→18:27)
[2020-07-01] MEDS: Insulin DETEMIR 100 UNIT/ML X5UNITS SUBQ SCH (08:28)
[2020-07-02] MEDS: Acetaminophen 325 MG TABLET PO SCH ×4 (06:47→23:48)
[2020-07-02] MEDS: Insulin LISPRO 300 UNITS/3 ML VIAL SUBQ SCH ×3 (08:16→16:10)
[2020-07-02] MEDS: Insulin DETEMIR 100 UNIT/ML X5UNITS SUBQ SCH (08:16)
[2020-07-02] MEDS: carvediloL 25 MG TABLET PO SCH ×2 (08:17→16:49)
[2020-07-02] MEDS: Gabapentin 300 MG CAPSULE PO SCH ×3 (08:17→22:40)
[2020-07-02] MEDS: Cholecalciferol (D-3) 1,000 UNIT (25MCG) TABLET PO SCH (08:17)
[2020-07-02] MEDS: *HR* OxyCODONE/APAP 10/325 TABLET PO PRN ×2 (08:17→16:49)
[2020-07-02] MEDS: DilTIAZem CD (24hr) 240 MG CAP.ER.24H PO SCH (08:17)
[2020-07-02] MEDS: Folic Acid 1 MG TABLET PO SCH (08:17)
[2020-07-02] MEDS: NATEGLINIDE 60 MG PO SCH ×3 (08:18→16:50)
[2020-07-02] MEDS: Magnesium Oxide 400 MG TABLET PO SCH (08:18)
[2020-07-02] MEDS: lisinopriL 20 MG TABLET PO SCH (08:18)
[2020-07-02] MEDS: Loratadine 10 MG TABLET PO SCH (08:18)
[2020-07-02] MEDS: Apixaban 5 MG TABLET PO SCH ×2 (08:18→22:40)
[2020-07-02] MEDS: *HR* LORazepam 0.5 MG TABLET PO PRN (09:44)
[2020-07-02] MEDS: Ondansetron ODT 4 MG TAB.RAPDIS PO PRN (09:44)
[2020-07-02] MEDS: Furosemide 40 MG TABLET PO SCH (13:08)
[2020-07-03] MEDS: *HR* OxyCODONE/APAP 10/325 TABLET PO PRN ×3 (00:50→16:29)
[2020-07-03] MEDS: Acetaminophen 325 MG TABLET PO SCH ×4 (05:47→23:30)
[2020-07-03] MEDS: Insulin LISPRO 300 UNITS/3 ML VIAL SUBQ SCH ×3 (07:34→16:29)
[2020-07-03] MEDS: NATEGLINIDE 60 MG PO SCH ×3 (07:36→16:29)
[2020-07-03] MEDS: Folic Acid 1 MG TABLET PO SCH (08:43)
[2020-07-03] MEDS: carvediloL 25 MG TABLET PO SCH ×2 (08:43→16:29)
[2020-07-03] MEDS: Gabapentin 300 MG CAPSULE PO SCH ×3 (08:43→19:51)
[2020-07-03] MEDS: lisinopriL 20 MG TABLET PO SCH (08:43)
[2020-07-03] MEDS: Furosemide 40 MG TABLET PO SCH (08:43)
[2020-07-03] MEDS: DilTIAZem CD (24hr) 240 MG CAP.ER.24H PO SCH (08:44)
[2020-07-03] MEDS: Magnesium Oxide 400 MG TABLET PO SCH (08:44)
[2020-07-03] MEDS: Loratadine 10 MG TABLET PO SCH (08:44)
[2020-07-03] MEDS: Cholecalciferol (D-3) 1,000 UNIT (25MCG) TABLET PO SCH (08:44)
[2020-07-03] MEDS: Apixaban 5 MG TABLET PO SCH ×2 (08:44→19:51)
[2020-07-03] MEDS: Insulin DETEMIR 100 UNIT/ML X5UNITS SUBQ SCH (08:44)
[2020-07-04] MEDS: *HR* OxyCODONE/APAP 10/325 TABLET PO PRN ×3 (04:37→19:59)
[2020-07-04] MEDS: Acetaminophen 325 MG TABLET PO SCH ×3 (05:26→18:02)
[2020-07-04 05:42] LABS: Albumin 2.6 g/dL (3.5-5.7); Albumin/Globulin Ratio 1.1 (1.1-2.2); Bilirubin,Total 0.3 mg/dL (0.3-1.0); Calcium 8.6 mg/dL (8.6-10.3); Globulin 2.4 g/dL (2.4-3.5); Potassium 3.4 mEq/L (3.5-5.1)
[2020-07-04] MEDS: Gabapentin 300 MG CAPSULE PO SCH ×3 (07:47→20:00)
[2020-07-04] MEDS: Cholecalciferol (D-3) 1,000 UNIT (25MCG) TABLET PO SCH (07:47)
[2020-07-04] MEDS: Furosemide 40 MG TABLET PO SCH (07:47)
[2020-07-04] MEDS: Loratadine 10 MG TABLET PO SCH (07:48)
[2020-07-04] MEDS: carvediloL 25 MG TABLET PO SCH ×2 (07:48→18:02)
[2020-07-04] MEDS: DilTIAZem CD (24hr) 240 MG CAP.ER.24H PO SCH (07:48)
[2020-07-04] MEDS: lisinopriL 20 MG TABLET PO SCH (07:49)
[2020-07-04] MEDS: Magnesium Oxide 400 MG TABLET PO SCH (07:49)
[2020-07-04] MEDS: Sennosides/Docusate Sodium TABLET PO SCH (07:49)
[2020-07-04] MEDS: Insulin DETEMIR 100 UNIT/ML X5UNITS SUBQ SCH (07:50)
[2020-07-04] MEDS: Apixaban 5 MG TABLET PO SCH ×2 (07:50→20:00)
[2020-07-04] MEDS: Insulin LISPRO 300 UNITS/3 ML VIAL SUBQ SCH ×3 (07:51→18:00)
[2020-07-04] MEDS: NATEGLINIDE 60 MG PO SCH ×3 (07:51→18:02)
[2020-07-04] MEDS ORDERED: polyethylene glycoL 3350 17 GM POWD.PACK PO ONE (14:18)
[2020-07-04] MEDS: Spironolactone 12.5 MG TABLET PO SCH (18:02)
[2020-07-05] MEDS: Acetaminophen 325 MG TABLET PO SCH ×5 (00:12→23:58)
[2020-07-05] MEDS: *HR* OxyCODONE/APAP 10/325 TABLET PO PRN ×2 (05:42→14:35)
[2020-07-05] MEDS: Insulin LISPRO 300 UNITS/3 ML VIAL SUBQ SCH ×3 (07:50→17:33)
[2020-07-05] MEDS: Apixaban 5 MG TABLET PO SCH ×2 (08:40→19:38)
[2020-07-05] MEDS: Gabapentin 300 MG CAPSULE PO SCH ×3 (08:40→19:38)
[2020-07-05] MEDS: DilTIAZem CD (24hr) 240 MG CAP.ER.24H PO SCH (08:40)
[2020-07-05] MEDS: Sennosides/Docusate Sodium TABLET PO SCH (08:40)
[2020-07-05] MEDS: Loratadine 10 MG TABLET PO SCH (08:40)
[2020-07-05] MEDS: Cholecalciferol (D-3) 1,000 UNIT (25MCG) TABLET PO SCH (08:40)
[2020-07-05] MEDS: Magnesium Oxide 400 MG TABLET PO SCH (08:41)
[2020-07-05] MEDS: Furosemide 40 MG TABLET PO SCH (08:41)
[2020-07-05] MEDS: NATEGLINIDE 60 MG PO SCH ×3 (08:41→17:34)
[2020-07-05] MEDS: Insulin DETEMIR 100 UNIT/ML X5UNITS SUBQ SCH (08:41)
[2020-07-05] MEDS: lisinopriL 20 MG TABLET PO SCH (08:41)
[2020-07-05] MEDS: Spironolactone 12.5 MG TABLET PO SCH (08:41)
[2020-07-05] MEDS: carvediloL 25 MG TABLET PO SCH ×2 (08:41→17:34)
[2020-07-05] MEDS: Ondansetron ODT 4 MG TAB.RAPDIS PO PRN (08:49)
[2020-07-05] MEDS: *HR* LORazepam 0.5 MG TABLET PO PRN (16:06)
[2020-07-06] MEDS: *HR* OxyCODONE/APAP 10/325 TABLET PO PRN ×3 (05:42→23:41)
[2020-07-06] MEDS: Acetaminophen 325 MG TABLET PO SCH ×4 (05:42→23:41)
[2020-07-06] MEDS: Insulin LISPRO 300 UNITS/3 ML VIAL SUBQ SCH ×3 (07:35→17:20)
[2020-07-06] MEDS: Insulin DETEMIR 100 UNIT/ML X5UNITS SUBQ SCH (10:05)
[2020-07-06] MEDS: *HR* LORazepam 0.5 MG TABLET PO PRN (10:06)
[2020-07-06] MEDS: Sennosides/Docusate Sodium TABLET PO SCH (10:07)
[2020-07-06] MEDS: DilTIAZem CD (24hr) 240 MG CAP.ER.24H PO SCH (10:07)
[2020-07-06] MEDS: carvediloL 25 MG TABLET PO SCH ×2 (10:07→17:21)
[2020-07-06] MEDS: Magnesium Oxide 400 MG TABLET PO SCH (10:08)
[2020-07-06] MEDS: lisinopriL 20 MG TABLET PO SCH (10:08)
[2020-07-06] MEDS: Furosemide 40 MG TABLET PO SCH (10:08)
[2020-07-06] MEDS: Loratadine 10 MG TABLET PO SCH (10:08)
[2020-07-06] MEDS: NATEGLINIDE 60 MG PO SCH ×3 (10:08→17:23)
[2020-07-06] MEDS: Cholecalciferol (D-3) 1,000 UNIT (25MCG) TABLET PO SCH (10:08)
[2020-07-06] MEDS: Apixaban 5 MG TABLET PO SCH ×2 (10:08→20:31)
[2020-07-06] MEDS: Gabapentin 300 MG CAPSULE PO SCH ×3 (10:08→20:31)
[2020-07-06] MEDS: Spironolactone 12.5 MG TABLET PO SCH (10:18)
[2020-07-07] MEDS: Acetaminophen 325 MG TABLET PO SCH ×3 (05:42→16:26)
[2020-07-07] MEDS: Insulin LISPRO 300 UNITS/3 ML VIAL SUBQ SCH ×3 (07:17→16:22)
[2020-07-07] MEDS: *HR* OxyCODONE/APAP 10/325 TABLET PO PRN ×2 (08:12→16:26)
[2020-07-07] MEDS: Loratadine 10 MG TABLET PO SCH (08:12)
[2020-07-07] MEDS: Furosemide 40 MG TABLET PO SCH (08:13)
[2020-07-07] MEDS: Sennosides/Docusate Sodium TABLET PO SCH (08:13)
[2020-07-07] MEDS: Magnesium Oxide 400 MG TABLET PO SCH (08:13)
[2020-07-07] MEDS: Gabapentin 300 MG CAPSULE PO SCH ×3 (08:13→20:17)
[2020-07-07] MEDS: Spironolactone 12.5 MG TABLET PO SCH (08:13)
[2020-07-07] MEDS: DilTIAZem CD (24hr) 240 MG CAP.ER.24H PO SCH (08:13)
[2020-07-07] MEDS: carvediloL 25 MG TABLET PO SCH ×2 (08:13→16:27)
[2020-07-07] MEDS: lisinopriL 20 MG TABLET PO SCH (08:13)
[2020-07-07] MEDS: Apixaban 5 MG TABLET PO SCH ×2 (08:14→20:18)
[2020-07-07] MEDS: Cholecalciferol (D-3) 1,000 UNIT (25MCG) TABLET PO SCH (08:14)
[2020-07-07] MEDS: NATEGLINIDE 60 MG PO SCH ×3 (08:15→16:21)
[2020-07-07] MEDS: Insulin DETEMIR 100 UNIT/ML X5UNITS SUBQ SCH (08:24)
[2020-07-07] MEDS: Ondansetron ODT 4 MG TAB.RAPDIS PO PRN (10:22)
[2020-07-08] MEDS: *HR* OxyCODONE/APAP 10/325 TABLET PO PRN ×3 (00:29→21:01)
[2020-07-08] MEDS: Acetaminophen 325 MG TABLET PO SCH ×4 (00:30→16:31)
[2020-07-08] MEDS: carvediloL 25 MG TABLET PO SCH ×2 (08:35→16:31)
[2020-07-08] MEDS: lisinopriL 20 MG TABLET PO SCH (08:35)
[2020-07-08] MEDS: Spironolactone 12.5 MG TABLET PO SCH (08:35)
[2020-07-08] MEDS: Magnesium Oxide 400 MG TABLET PO SCH (08:35)
[2020-07-08] MEDS: Apixaban 5 MG TABLET PO SCH ×2 (08:35→21:02)
[2020-07-08] MEDS: Furosemide 40 MG TABLET PO SCH (08:36)
[2020-07-08] MEDS: DilTIAZem CD (24hr) 240 MG CAP.ER.24H PO SCH (08:36)
[2020-07-08] MEDS: Loratadine 10 MG TABLET PO SCH (08:36)
[2020-07-08] MEDS: Sennosides/Docusate Sodium TABLET PO SCH (08:36)
[2020-07-08] MEDS: Cholecalciferol (D-3) 1,000 UNIT (25MCG) TABLET PO SCH (08:36)
[2020-07-08] MEDS: Gabapentin 300 MG CAPSULE PO SCH ×3 (08:36→21:01)
[2020-07-08] MEDS: Insulin LISPRO 300 UNITS/3 ML VIAL SUBQ SCH ×4 (08:37→16:34)
[2020-07-08] MEDS: NATEGLINIDE 60 MG PO SCH ×3 (08:37→16:33)
[2020-07-08] MEDS: Insulin DETEMIR 100 UNIT/ML X5UNITS SUBQ SCH (08:37)
[2020-07-08 11:00] LABS: Albumin 2.7 g/dL (3.5-5.7); Bilirubin,Total 0.3 mg/dL (0.3-1.0); Calcium 8.5 mg/dL (8.6-10.3); Globulin 2.6 g/dL (2.4-3.5); Potassium 4.2 mEq/L (3.5-5.1); Total Protein 5.3 g/dL (6.4-8.9)
[2020-07-09] MEDS: Acetaminophen 325 MG TABLET PO SCH ×4 (00:59→17:18)
[2020-07-09] MEDS: *HR* OxyCODONE/APAP 10/325 TABLET PO PRN ×2 (05:50→16:08)
[2020-07-09] MEDS: Insulin LISPRO 300 UNITS/3 ML VIAL SUBQ SCH ×6 (09:10→16:29)
[2020-07-09] MEDS: NATEGLINIDE 60 MG PO SCH ×3 (09:10→17:18)
[2020-07-09] MEDS: Cholecalciferol (D-3) 1,000 UNIT (25MCG) TABLET PO SCH (09:30)
[2020-07-09] MEDS: Spironolactone 12.5 MG TABLET PO SCH (09:31)
[2020-07-09] MEDS: Gabapentin 300 MG CAPSULE PO SCH ×3 (09:31→19:29)
[2020-07-09] MEDS: DilTIAZem CD (24hr) 240 MG CAP.ER.24H PO SCH (09:31)
[2020-07-09] MEDS: carvediloL 25 MG TABLET PO SCH ×2 (09:31→16:09)
[2020-07-09] MEDS: Magnesium Oxide 400 MG TABLET PO SCH (09:31)
[2020-07-09] MEDS: Apixaban 5 MG TABLET PO SCH ×2 (09:31→19:29)
[2020-07-09] MEDS: lisinopriL 20 MG TABLET PO SCH (09:31)
[2020-07-09] MEDS: Loratadine 10 MG TABLET PO SCH (09:31)
[2020-07-09] MEDS: Furosemide 40 MG TABLET PO SCH (09:31)
[2020-07-09] MEDS: Sennosides/Docusate Sodium TABLET PO SCH (09:31)
[2020-07-09] MEDS: Insulin DETEMIR 100 UNIT/ML X5UNITS SUBQ SCH (09:33)
[2020-07-09] MEDS: *HR* LORazepam 0.5 MG TABLET PO PRN (09:43)
[2020-07-09] MEDS: Ondansetron ODT 4 MG TAB.RAPDIS PO PRN (10:27)
[2020-07-10] MEDS: Acetaminophen 325 MG TABLET PO SCH ×5 (00:55→23:55)
[2020-07-10] MEDS: *HR* OxyCODONE/APAP 10/325 TABLET PO PRN ×2 (05:37→21:05)
[2020-07-10 06:30] LABS: Basophils % 0.4 %; Eosinophils # 0.2 K/mcL (0.0-0.6); Eosinophils % 4.3 %; Hematocrit 37.4 % (35.3-44.9); Hemoglobin 11.7 g/dL (11.5-15.4); Immature Granulocytes % 0.4 % (0-4); Lymphocytes # 1.7 K/mcL (0.6-4.6); Lymphocytes % 33.8 %; Mean Corpuscular HGB Conc 31.3 g/dL (31.6-35.5); Mean Corpuscular Hemoglobin 33.1 pg (28.0-33.3); Mean Corpuscular Volume 105.6 fL (83.0-100.0); Mean Platelet Volume 10.7 fL (9.4-12.4); Monocytes # 0.4 K/mcL (0.0-1.3); Monocytes % 7.9 %; Neutrophils # 2.7 K/mcL (1.6-8.9); Platelet Count 170 K/mcL (140-400); Red Blood Count 3.54 M/mcL (3.82-4.97); Red Cell Distribution Width 13.3 % (11.5-14.5); Segmented Neutrophils % 53.2 %; White Blood Count 5.1 K/mcL (4.3-11.1)
[2020-07-10 06:55] LABS: Calcium 8.6 mg/dL (8.6-10.3); Potassium 4.3 mEq/L (3.5-5.1)
[2020-07-10] MEDS: Insulin LISPRO 300 UNITS/3 ML VIAL SUBQ SCH ×6 (07:33→16:22)
[2020-07-10] MEDS: carvediloL 25 MG TABLET PO SCH ×2 (07:56→17:28)
[2020-07-10] MEDS: NATEGLINIDE 60 MG PO SCH ×3 (07:57→17:30)
[2020-07-10] MEDS: Sennosides/Docusate Sodium TABLET PO SCH (08:38)
[2020-07-10] MEDS: Spironolactone 12.5 MG TABLET PO SCH (08:38)
[2020-07-10] MEDS: Loratadine 10 MG TABLET PO SCH (08:39)
[2020-07-10] MEDS: DilTIAZem CD (24hr) 240 MG CAP.ER.24H PO SCH (08:39)
[2020-07-10] MEDS: Apixaban 5 MG TABLET PO SCH ×2 (08:39→21:05)
[2020-07-10] MEDS: Gabapentin 300 MG CAPSULE PO SCH ×3 (08:39→21:05)
[2020-07-10] MEDS: Magnesium Oxide 400 MG TABLET PO SCH (08:40)
[2020-07-10] MEDS: lisinopriL 20 MG TABLET PO SCH (08:41)
[2020-07-10] MEDS: Cholecalciferol (D-3) 1,000 UNIT (25MCG) TABLET PO SCH (08:41)
[2020-07-10] MEDS: Insulin DETEMIR 100 UNIT/ML X5UNITS SUBQ SCH (08:42)
[2020-07-10] MEDS: Furosemide 40 MG TABLET PO SCH (08:42)
[2020-07-11] MEDS: Acetaminophen 325 MG TABLET PO SCH ×4 (06:29→23:09)
[2020-07-11] MEDS: Insulin LISPRO 300 UNITS/3 ML VIAL SUBQ SCH ×6 (08:12→16:49)
[2020-07-11] MEDS: Insulin DETEMIR 100 UNIT/ML X5UNITS SUBQ SCH (08:14)
[2020-07-11] MEDS: Loratadine 10 MG TABLET PO SCH (08:15)
[2020-07-11] MEDS: Gabapentin 300 MG CAPSULE PO SCH ×3 (08:15→21:00)
[2020-07-11] MEDS: Sennosides/Docusate Sodium TABLET PO SCH (08:15)
[2020-07-11] MEDS: Apixaban 5 MG TABLET PO SCH ×2 (08:15→21:00)
[2020-07-11] MEDS: Cholecalciferol (D-3) 1,000 UNIT (25MCG) TABLET PO SCH (08:16)
[2020-07-11] MEDS: Magnesium Oxide 400 MG TABLET PO SCH (08:17)
[2020-07-11] MEDS: lisinopriL 20 MG TABLET PO SCH (08:17)
[2020-07-11] MEDS: Spironolactone 12.5 MG TABLET PO SCH (08:17)
[2020-07-11] MEDS: Furosemide 40 MG TABLET PO SCH (08:18)
[2020-07-11] MEDS: DilTIAZem CD (24hr) 240 MG CAP.ER.24H PO SCH (08:18)
[2020-07-11] MEDS: carvediloL 25 MG TABLET PO SCH ×2 (08:19→16:49)
[2020-07-11] MEDS: NATEGLINIDE 60 MG PO SCH ×3 (08:20→17:00)
[2020-07-11] MEDS: *HR* OxyCODONE/APAP 10/325 TABLET PO PRN ×2 (08:26→16:57)
[2020-07-11] MEDS: Nystatin POWDER 30 GM BOTTLE TP SCH (23:09)
[2020-07-12] MEDS: *HR* OxyCODONE/APAP 10/325 TABLET PO PRN ×3 (00:58→17:54)
[2020-07-12] MEDS: Acetaminophen 325 MG TABLET PO SCH ×3 (05:48→16:53)
[2020-07-12] MEDS: Furosemide 40 MG TABLET PO SCH (08:25)
[2020-07-12] MEDS: carvediloL 25 MG TABLET PO SCH ×2 (08:25→16:53)
[2020-07-12] MEDS: DilTIAZem CD (24hr) 240 MG CAP.ER.24H PO SCH (08:25)
[2020-07-12] MEDS: Loratadine 10 MG TABLET PO SCH (08:25)
[2020-07-12] MEDS: Apixaban 5 MG TABLET PO SCH ×2 (08:25→21:28)
[2020-07-12] MEDS: Gabapentin 300 MG CAPSULE PO SCH ×3 (08:26→21:28)
[2020-07-12] MEDS: lisinopriL 20 MG TABLET PO SCH (08:26)
[2020-07-12] MEDS: Sennosides/Docusate Sodium TABLET PO SCH (08:26)
[2020-07-12] MEDS: Cholecalciferol (D-3) 1,000 UNIT (25MCG) TABLET PO SCH (08:26)
[2020-07-12] MEDS: Spironolactone 12.5 MG TABLET PO SCH (08:26)
[2020-07-12] MEDS: Magnesium Oxide 400 MG TABLET PO SCH (08:26)
[2020-07-12] MEDS: NATEGLINIDE 60 MG PO SCH ×3 (08:27→16:53)
[2020-07-12] MEDS: Insulin DETEMIR 100 UNIT/ML X5UNITS SUBQ SCH (08:27)
[2020-07-12] MEDS: Insulin LISPRO 300 UNITS/3 ML VIAL SUBQ SCH ×6 (08:28→16:17)
[2020-07-12] MEDS: Ondansetron ODT 4 MG TAB.RAPDIS PO PRN (08:41)
[2020-07-12] MEDS: Nystatin POWDER 30 GM BOTTLE TP SCH ×3 (12:14→21:28)
[2020-07-12 14:36] LABS: SARS-CoV-2 by NAA Not Detected (Not Detected)
[2020-07-13] MEDS: Acetaminophen 325 MG TABLET PO SCH ×4 (01:29→17:48)
[2020-07-13] MEDS: Insulin LISPRO 300 UNITS/3 ML VIAL SUBQ SCH ×6 (07:59→17:00)
[2020-07-13] MEDS: Loratadine 10 MG TABLET PO SCH (08:56)
[2020-07-13] MEDS: Apixaban 5 MG TABLET PO SCH ×2 (08:56→20:36)
[2020-07-13] MEDS: lisinopriL 20 MG TABLET PO SCH (08:56)
[2020-07-13] MEDS: Furosemide 40 MG TABLET PO SCH (08:56)
[2020-07-13] MEDS: Gabapentin 300 MG CAPSULE PO SCH ×3 (08:56→20:37)
[2020-07-13] MEDS: Sennosides/Docusate Sodium TABLET PO SCH (08:56)
[2020-07-13] MEDS: Spironolactone 12.5 MG TABLET PO SCH (08:56)
[2020-07-13] MEDS: Cholecalciferol (D-3) 1,000 UNIT (25MCG) TABLET PO SCH (08:57)
[2020-07-13] MEDS: Magnesium Oxide 400 MG TABLET PO SCH (08:57)
[2020-07-13] MEDS: carvediloL 25 MG TABLET PO SCH ×2 (08:57→17:01)
[2020-07-13] MEDS: DilTIAZem CD (24hr) 240 MG CAP.ER.24H PO SCH (08:57)
[2020-07-13] MEDS: NATEGLINIDE 60 MG PO SCH ×3 (08:58→17:01)
[2020-07-13] MEDS: *HR* OxyCODONE/APAP 10/325 TABLET PO PRN ×2 (09:06→17:48)
[2020-07-13] MEDS: Insulin DETEMIR 100 UNIT/ML X5UNITS SUBQ SCH (09:07)
[2020-07-13] MEDS: Nystatin POWDER 30 GM BOTTLE TP SCH ×3 (09:08→20:37)
[2020-07-13] MEDS: *HR* LORazepam 0.5 MG TABLET PO PRN (20:36)
[2020-07-13] MEDS: polyethylene glycoL 3350 17 GM POWD.PACK PO PRN (20:37)
[2020-07-14] MEDS: Acetaminophen 325 MG TABLET PO SCH ×4 (00:33→16:48)
[2020-07-14] MEDS: Insulin LISPRO 300 UNITS/3 ML VIAL SUBQ SCH ×6 (08:33→16:29)
[2020-07-14] MEDS: DilTIAZem CD (24hr) 240 MG CAP.ER.24H PO SCH (08:34)
[2020-07-14] MEDS: Loratadine 10 MG TABLET PO SCH (08:34)
[2020-07-14] MEDS: Gabapentin 300 MG CAPSULE PO SCH ×3 (08:34→21:03)
[2020-07-14] MEDS: Sennosides/Docusate Sodium TABLET PO SCH (08:34)
[2020-07-14] MEDS: Magnesium Oxide 400 MG TABLET PO SCH (08:35)
[2020-07-14] MEDS: Apixaban 5 MG TABLET PO SCH ×2 (08:35→21:03)
[2020-07-14] MEDS: Furosemide 40 MG TABLET PO SCH (08:35)
[2020-07-14] MEDS: carvediloL 25 MG TABLET PO SCH ×2 (08:35→16:48)
[2020-07-14] MEDS: lisinopriL 20 MG TABLET PO SCH (08:35)
[2020-07-14] MEDS: NATEGLINIDE 60 MG PO SCH ×3 (08:36→16:48)
[2020-07-14] MEDS: Cholecalciferol (D-3) 1,000 UNIT (25MCG) TABLET PO SCH (08:36)
[2020-07-14] MEDS: Insulin DETEMIR 100 UNIT/ML X5UNITS SUBQ SCH (08:36)
[2020-07-14] MEDS: Spironolactone 12.5 MG TABLET PO SCH (08:36)
[2020-07-14] MEDS: *HR* OxyCODONE/APAP 10/325 TABLET PO PRN ×2 (10:51→21:08)
[2020-07-14] MEDS: Nystatin POWDER 30 GM BOTTLE TP SCH ×3 (11:41→21:04)
[2020-07-15] MEDS: Acetaminophen 325 MG TABLET PO SCH ×4 (00:13→17:56)
[2020-07-15] MEDS: Cholecalciferol (D-3) 1,000 UNIT (25MCG) TABLET PO SCH (08:13)
[2020-07-15] MEDS: lisinopriL 20 MG TABLET PO SCH (08:13)
[2020-07-15] MEDS: Sennosides/Docusate Sodium TABLET PO SCH (08:14)
[2020-07-15] MEDS: DilTIAZem CD (24hr) 240 MG CAP.ER.24H PO SCH (08:15)
[2020-07-15] MEDS: Loratadine 10 MG TABLET PO SCH (08:15)
[2020-07-15] MEDS: carvediloL 25 MG TABLET PO SCH ×2 (08:15→16:44)
[2020-07-15] MEDS: Magnesium Oxide 400 MG TABLET PO SCH (08:15)
[2020-07-15] MEDS: Gabapentin 300 MG CAPSULE PO SCH ×3 (08:15→21:17)
[2020-07-15] MEDS: Insulin LISPRO 300 UNITS/3 ML VIAL SUBQ SCH ×6 (08:16→16:41)
[2020-07-15] MEDS: Insulin DETEMIR 100 UNIT/ML X5UNITS SUBQ SCH (08:19)
[2020-07-15] MEDS: Furosemide 40 MG TABLET PO SCH (08:20)
[2020-07-15] MEDS: Spironolactone 12.5 MG TABLET PO SCH (08:20)
[2020-07-15] MEDS: NATEGLINIDE 60 MG PO SCH ×3 (08:20→16:42)
[2020-07-15] MEDS: Nystatin POWDER 30 GM BOTTLE TP SCH ×3 (08:21→21:17)
[2020-07-15] MEDS: *HR* OxyCODONE/APAP 10/325 TABLET PO PRN ×2 (08:24→21:17)
[2020-07-15 08:43] LABS: Basophils % 0.5 %; Eosinophils # 0.3 K/mcL (0.0-0.6); Eosinophils % 5.8 %; Hematocrit 35.7 % (35.3-44.9); Hemoglobin 11.4 g/dL (11.5-15.4); Immature Granulocytes % 0.2 % (0-4); Lymphocytes # 1.8 K/mcL (0.6-4.6); Lymphocytes % 42.7 %; Mean Corpuscular HGB Conc 31.9 g/dL (31.6-35.5); Mean Corpuscular Hemoglobin 33.1 pg (28.0-33.3); Mean Corpuscular Volume 103.8 fL (83.0-100.0); Mean Platelet Volume 10.9 fL (9.4-12.4); Monocytes # 0.4 K/mcL (0.0-1.3); Monocytes % 9.6 %; Neutrophils # 1.8 K/mcL (1.6-8.9); Platelet Count 195 K/mcL (140-400); Red Blood Count 3.44 M/mcL (3.82-4.97); Red Cell Distribution Width 13.2 % (11.5-14.5); Segmented Neutrophils % 41.2 %; White Blood Count 4.3 K/mcL (4.3-11.1)
[2020-07-15 09:27] LABS: Calcium 8.6 mg/dL (8.6-10.3); Potassium 4.3 mEq/L (3.5-5.1)
[2020-07-16] MEDS: Acetaminophen 325 MG TABLET PO SCH ×4 (00:10→17:36)
[2020-07-16] MEDS: Insulin LISPRO 300 UNITS/3 ML VIAL SUBQ SCH ×4 (07:12→16:15)
[2020-07-16] MEDS: NATEGLINIDE 60 MG PO SCH ×3 (08:38→16:16)
[2020-07-16] MEDS: Sennosides/Docusate Sodium TABLET PO SCH (08:44)
[2020-07-16] MEDS: Spironolactone 12.5 MG TABLET PO SCH (08:45)
[2020-07-16] MEDS: Gabapentin 300 MG CAPSULE PO SCH ×3 (08:45→21:20)
[2020-07-16] MEDS: Cholecalciferol (D-3) 1,000 UNIT (25MCG) TABLET PO SCH (08:45)
[2020-07-16] MEDS: Loratadine 10 MG TABLET PO SCH (08:46)
[2020-07-16] MEDS: DilTIAZem CD (24hr) 240 MG CAP.ER.24H PO SCH (08:46)
[2020-07-16] MEDS: carvediloL 25 MG TABLET PO SCH ×2 (08:46→16:24)
[2020-07-16] MEDS: Magnesium Oxide 400 MG TABLET PO SCH (08:46)
[2020-07-16] MEDS: lisinopriL 20 MG TABLET PO SCH (08:46)
[2020-07-16] MEDS: Furosemide 40 MG TABLET PO SCH (08:46)
[2020-07-16] MEDS: Insulin DETEMIR 100 UNIT/ML X5UNITS SUBQ SCH (08:48)
[2020-07-16] MEDS: Nystatin POWDER 30 GM BOTTLE TP SCH ×3 (08:48→23:02)
[2020-07-16] MEDS: *HR* OxyCODONE/APAP 10/325 TABLET PO PRN ×2 (11:59→21:20)
[2020-07-17] MEDS: Acetaminophen 325 MG TABLET PO SCH ×5 (01:23→23:31)
[2020-07-17] MEDS: DilTIAZem CD (24hr) 240 MG CAP.ER.24H PO SCH (07:29)
[2020-07-17] MEDS: Gabapentin 300 MG CAPSULE PO SCH ×3 (07:29→15:24)
[2020-07-17] MEDS: lisinopriL 20 MG TABLET PO SCH (07:30)
[2020-07-17] MEDS: carvediloL 25 MG TABLET PO SCH ×2 (07:30→15:23)
[2020-07-17] MEDS: Insulin LISPRO 300 UNITS/3 ML VIAL SUBQ SCH ×2 (14:19→16:59)
[2020-07-17] MEDS: NATEGLINIDE 60 MG PO SCH ×2 (14:19→17:00)
[2020-07-17] MEDS: Nystatin POWDER 30 GM BOTTLE TP SCH ×3 (14:20→21:04)
[2020-07-17] MEDS: Insulin DETEMIR 100 UNIT/ML X5UNITS SUBQ SCH (14:20)
[2020-07-17] MEDS: Loratadine 10 MG TABLET PO SCH (14:33)
[2020-07-17] MEDS: Spironolactone 12.5 MG TABLET PO SCH (14:34)
[2020-07-17] MEDS: Sennosides/Docusate Sodium TABLET PO SCH (14:34)
[2020-07-17] MEDS: Cholecalciferol (D-3) 1,000 UNIT (25MCG) TABLET PO SCH (14:34)
[2020-07-17] MEDS: Furosemide 40 MG TABLET PO SCH (14:34)
[2020-07-17] MEDS: Magnesium Oxide 400 MG TABLET PO SCH (14:35)
[2020-07-17] MEDS: *HR* OxyCODONE/APAP 10/325 TABLET PO PRN ×2 (15:27→23:30)
[2020-07-17] MEDS: *HR* LORazepam 0.5 MG TABLET PO PRN (17:52)
[2020-07-18] MEDS: Acetaminophen 325 MG TABLET PO SCH ×3 (06:09→17:35)
[2020-07-18] MEDS: Gabapentin 300 MG CAPSULE PO SCH ×3 (07:48→20:55)
[2020-07-18] MEDS: *HR* OxyCODONE/APAP 10/325 TABLET PO PRN ×2 (07:48→20:55)
[2020-07-18] MEDS: carvediloL 25 MG TABLET PO SCH ×2 (07:48→17:35)
[2020-07-18] MEDS: Insulin LISPRO 300 UNITS/3 ML VIAL SUBQ SCH ×3 (07:48→17:37)
[2020-07-18] MEDS: Loratadine 10 MG TABLET PO SCH (07:49)
[2020-07-18] MEDS: DilTIAZem CD (24hr) 240 MG CAP.ER.24H PO SCH (07:49)
[2020-07-18] MEDS: Apixaban 5 MG TABLET PO SCH ×2 (07:49→20:54)
[2020-07-18] MEDS: Cholecalciferol (D-3) 1,000 UNIT (25MCG) TABLET PO SCH (07:49)
[2020-07-18] MEDS: Furosemide 40 MG TABLET PO SCH (07:49)
[2020-07-18] MEDS: lisinopriL 20 MG TABLET PO SCH (07:49)
[2020-07-18] MEDS: Magnesium Oxide 400 MG TABLET PO SCH (07:49)
[2020-07-18] MEDS: Sennosides/Docusate Sodium TABLET PO SCH (07:49)
[2020-07-18] MEDS: Spironolactone 12.5 MG TABLET PO SCH (07:50)
[2020-07-18] MEDS: Insulin DETEMIR 100 UNIT/ML X5UNITS SUBQ SCH (07:52)
[2020-07-18] MEDS: NATEGLINIDE 60 MG PO SCH ×3 (07:52→17:44)
[2020-07-18] MEDS: Nystatin POWDER 30 GM BOTTLE TP SCH ×3 (07:53→20:56)
[2020-07-19] MEDS: Acetaminophen 325 MG TABLET PO SCH ×5 (00:20→23:41)
[2020-07-19] MEDS: Insulin LISPRO 300 UNITS/3 ML VIAL SUBQ SCH ×3 (07:45→16:31)
[2020-07-19] MEDS: Insulin DETEMIR 100 UNIT/ML X5UNITS SUBQ SCH (08:06)
[2020-07-19] MEDS: Magnesium Oxide 400 MG TABLET PO SCH (08:06)
[2020-07-19] MEDS: Furosemide 40 MG TABLET PO SCH (08:07)
[2020-07-19] MEDS: carvediloL 25 MG TABLET PO SCH ×2 (08:07→16:34)
[2020-07-19] MEDS: Cholecalciferol (D-3) 1,000 UNIT (25MCG) TABLET PO SCH (08:07)
[2020-07-19] MEDS: Spironolactone 12.5 MG TABLET PO SCH (08:07)
[2020-07-19] MEDS: Apixaban 5 MG TABLET PO SCH ×2 (08:07→19:59)
[2020-07-19] MEDS: lisinopriL 20 MG TABLET PO SCH (08:07)
[2020-07-19] MEDS: Loratadine 10 MG TABLET PO SCH (08:07)
[2020-07-19] MEDS: DilTIAZem CD (24hr) 240 MG CAP.ER.24H PO SCH (08:07)
[2020-07-19] MEDS: Sennosides/Docusate Sodium TABLET PO SCH (08:07)
[2020-07-19] MEDS: Nystatin POWDER 30 GM BOTTLE TP SCH ×3 (08:08→20:01)
[2020-07-19] MEDS: NATEGLINIDE 60 MG PO SCH ×3 (08:08→16:40)
[2020-07-19] MEDS: Gabapentin 300 MG CAPSULE PO SCH ×3 (08:08→19:59)
[2020-07-19] MEDS: *HR* OxyCODONE/APAP 10/325 TABLET PO PRN ×2 (08:32→19:59)
[2020-07-20] MEDS: Acetaminophen 325 MG TABLET PO SCH ×3 (04:59→16:45)
[2020-07-20] MEDS: Furosemide 40 MG TABLET PO SCH (09:16)
[2020-07-20] MEDS: Magnesium Oxide 400 MG TABLET PO SCH (09:16)
[2020-07-20] MEDS: Cholecalciferol (D-3) 1,000 UNIT (25MCG) TABLET PO SCH (09:16)
[2020-07-20] MEDS: Spironolactone 12.5 MG TABLET PO SCH (09:16)
[2020-07-20] MEDS: lisinopriL 20 MG TABLET PO SCH (09:17)
[2020-07-20] MEDS: carvediloL 25 MG TABLET PO SCH ×2 (09:17→16:45)
[2020-07-20] MEDS: *HR* OxyCODONE/APAP 10/325 TABLET PO PRN ×2 (09:17→20:25)
[2020-07-20] MEDS: Gabapentin 300 MG CAPSULE PO SCH ×3 (09:18→20:25)
[2020-07-20] MEDS: DilTIAZem CD (24hr) 240 MG CAP.ER.24H PO SCH (09:18)
[2020-07-20] MEDS: NATEGLINIDE 60 MG PO SCH ×3 (09:18→16:47)
[2020-07-20] MEDS: Apixaban 5 MG TABLET PO SCH ×2 (09:18→20:25)
[2020-07-20] MEDS: Sennosides/Docusate Sodium TABLET PO SCH (09:18)
[2020-07-20] MEDS: Insulin LISPRO 300 UNITS/3 ML VIAL SUBQ SCH ×3 (09:18→16:32)
[2020-07-20] MEDS: Loratadine 10 MG TABLET PO SCH (09:18)
[2020-07-20] MEDS: Insulin DETEMIR 100 UNIT/ML X5UNITS SUBQ SCH (09:19)
[2020-07-20] MEDS: Nystatin POWDER 30 GM BOTTLE TP SCH ×3 (09:29→20:38)
[2020-07-20 12:20] LABS: Bilirubin,Urine Negative (Negative); Blood,Urine Trace-intact (Negative); Clarity,Urine Clear (Clear); Color,Urine Yellow (Yellow); Glucose,Urine (UA) Normal (Normal); Ketones,Urine Negative (Negative); Leukocyte Esterase,Urine Large (Negative); Nitrite,Urine Positive (Negative); PH,Urine 6.5 pH Units (5.0-8.0); Protein,Urine Negative (Neg-Trace); Urobilinogen,Urine Normal (Normal)
[2020-07-20 12:44] LABS: Bacteria,Urine Few per hpf (None-Few); Mucus,Urine Few per lpf (None-Few); RBC,Urine 0-3 per hpf (0-3)
[2020-07-21] MEDS: Acetaminophen 325 MG TABLET PO SCH ×4 (00:52→17:21)
[2020-07-21] MEDS: Insulin LISPRO 300 UNITS/3 ML VIAL SUBQ SCH ×3 (08:09→17:21)
[2020-07-21] MEDS: NATEGLINIDE 60 MG PO SCH ×3 (08:09→17:18)
[2020-07-21] MEDS: lisinopriL 20 MG TABLET PO SCH (09:49)
[2020-07-21] MEDS: Furosemide 40 MG TABLET PO SCH (09:49)
[2020-07-21] MEDS: Cholecalciferol (D-3) 1,000 UNIT (25MCG) TABLET PO SCH (09:49)
[2020-07-21] MEDS: Spironolactone 12.5 MG TABLET PO SCH (09:49)
[2020-07-21] MEDS: Sennosides/Docusate Sodium TABLET PO SCH (09:49)
[2020-07-21] MEDS: Gabapentin 300 MG CAPSULE PO SCH ×3 (09:50→20:37)
[2020-07-21] MEDS: Apixaban 5 MG TABLET PO SCH ×2 (09:50→20:38)
[2020-07-21] MEDS: DilTIAZem CD (24hr) 240 MG CAP.ER.24H PO SCH (09:51)
[2020-07-21] MEDS: Insulin DETEMIR 100 UNIT/ML X5UNITS SUBQ SCH (09:51)
[2020-07-21] MEDS: carvediloL 25 MG TABLET PO SCH ×2 (09:51→17:21)
[2020-07-21] MEDS: Loratadine 10 MG TABLET PO SCH (09:51)
[2020-07-21] MEDS: Magnesium Oxide 400 MG TABLET PO SCH (09:52)
[2020-07-21] MEDS: Nystatin POWDER 30 GM BOTTLE TP SCH ×3 (09:56→20:52)
[2020-07-21] MEDS: *HR* OxyCODONE/APAP 10/325 TABLET PO PRN ×2 (10:01→18:08)
[2020-07-21] MEDS: *HR* LORazepam 0.5 MG TABLET PO PRN (10:01)
[2020-07-22] MEDS: Acetaminophen 325 MG TABLET PO SCH ×3 (00:24→05:41)
[2020-07-22] MEDS: *HR* OxyCODONE/APAP 10/325 TABLET PO PRN ×3 (05:42→22:33)
[2020-07-22] MEDS: Insulin LISPRO 300 UNITS/3 ML VIAL SUBQ SCH ×3 (06:56→17:08)
[2020-07-22] MEDS: NATEGLINIDE 60 MG PO SCH ×3 (09:35→17:06)
[2020-07-22] MEDS: Insulin DETEMIR 100 UNIT/ML X5UNITS SUBQ SCH (09:51)
[2020-07-22] MEDS: Magnesium Oxide 400 MG TABLET PO SCH (09:52)
[2020-07-22] MEDS: Spironolactone 12.5 MG TABLET PO SCH (09:52)
[2020-07-22] MEDS: DilTIAZem CD (24hr) 240 MG CAP.ER.24H PO SCH (09:52)
[2020-07-22] MEDS: Gabapentin 300 MG CAPSULE PO SCH ×3 (09:52→22:33)
[2020-07-22] MEDS: lisinopriL 20 MG TABLET PO SCH (09:52)
[2020-07-22] MEDS: Sennosides/Docusate Sodium TABLET PO SCH (09:52)
[2020-07-22] MEDS: Furosemide 40 MG TABLET PO SCH (09:52)
[2020-07-22] MEDS: Cholecalciferol (D-3) 1,000 UNIT (25MCG) TABLET PO SCH (09:52)
[2020-07-22] MEDS: Apixaban 5 MG TABLET PO SCH ×2 (09:52→22:33)
[2020-07-22] MEDS: Nystatin POWDER 30 GM BOTTLE TP SCH ×4 (09:53→22:34)
[2020-07-22] MEDS: Loratadine 10 MG TABLET PO SCH (09:53)
[2020-07-22] MEDS: carvediloL 25 MG TABLET PO SCH ×2 (09:53→17:14)
[2020-07-22] MEDS: Acetaminophen 325 MG TABLET PO PRN (11:54)
[2020-07-22] MEDS: Ondansetron ODT 4 MG TAB.RAPDIS PO PRN (17:14)
[2020-07-22] MEDS: *HR* LORazepam 0.5 MG TABLET PO PRN (17:14)
[2020-07-23] MEDS: Insulin LISPRO 300 UNITS/3 ML VIAL SUBQ SCH ×3 (08:04→16:47)
[2020-07-23] MEDS: Insulin DETEMIR 100 UNIT/ML X5UNITS SUBQ SCH (08:10)
[2020-07-23] MEDS: *HR* OxyCODONE/APAP 10/325 TABLET PO PRN ×2 (08:10→16:46)
[2020-07-23] MEDS: Spironolactone 12.5 MG TABLET PO SCH (08:12)
[2020-07-23] MEDS: Apixaban 5 MG TABLET PO SCH ×2 (08:12→20:22)
[2020-07-23] MEDS: carvediloL 25 MG TABLET PO SCH ×2 (08:12→16:47)
[2020-07-23] MEDS: Loratadine 10 MG TABLET PO SCH (08:12)
[2020-07-23] MEDS: NATEGLINIDE 60 MG PO SCH ×3 (08:12→16:48)
[2020-07-23] MEDS: DilTIAZem CD (24hr) 240 MG CAP.ER.24H PO SCH (08:12)
[2020-07-23] MEDS: Gabapentin 300 MG CAPSULE PO SCH ×3 (08:12→20:22)
[2020-07-23] MEDS: Sennosides/Docusate Sodium TABLET PO SCH (08:12)
[2020-07-23] MEDS: Nystatin POWDER 30 GM BOTTLE TP SCH ×3 (08:12→21:55)
[2020-07-23] MEDS: Furosemide 40 MG TABLET PO SCH (08:13)
[2020-07-23] MEDS: lisinopriL 20 MG TABLET PO SCH (08:13)
[2020-07-23] MEDS: Cholecalciferol (D-3) 1,000 UNIT (25MCG) TABLET PO SCH (08:13)
[2020-07-23] MEDS: Magnesium Oxide 400 MG TABLET PO SCH (08:13)
[2020-07-23] MEDS: Acetaminophen 325 MG TABLET PO PRN (14:20)
[2020-07-23] MEDS: *HR* LORazepam 0.5 MG TABLET PO PRN (20:22)
[2020-07-24] MEDS: *HR* OxyCODONE/APAP 10/325 TABLET PO PRN ×3 (02:57→22:00)
[2020-07-24 04:28] LABS: Basophils % 0.3 %; Eosinophils # 0.4 K/mcL (0.0-0.6); Eosinophils % 5.5 %; Hematocrit 38.5 % (35.3-44.9); Hemoglobin 12.1 g/dL (11.5-15.4); Immature Granulocytes % 0.5 % (0-4); Lymphocytes # 1.8 K/mcL (0.6-4.6); Mean Corpuscular HGB Conc 31.4 g/dL (31.6-35.5); Mean Corpuscular Volume 104.9 fL (83.0-100.0); Mean Platelet Volume 10.5 fL (9.4-12.4); Monocytes # 0.5 K/mcL (0.0-1.3); Monocytes % 8.2 %; Neutrophils # 3.7 K/mcL (1.6-8.9); Platelet Count 180 K/mcL (140-400); Red Blood Count 3.67 M/mcL (3.82-4.97); Red Cell Distribution Width 12.7 % (11.5-14.5); Segmented Neutrophils % 57.5 %; White Blood Count 6.4 K/mcL (4.3-11.1)
[2020-07-24 06:28] LABS: Calcium 8.7 mg/dL (8.6-10.3); Potassium 4.6 mEq/L (3.5-5.1)
[2020-07-24] MEDS: Sennosides/Docusate Sodium TABLET PO SCH (07:33)
[2020-07-24] MEDS: lisinopriL 20 MG TABLET PO SCH (07:33)
[2020-07-24] MEDS: Loratadine 10 MG TABLET PO SCH (07:33)
[2020-07-24] MEDS: Magnesium Oxide 400 MG TABLET PO SCH (07:33)
[2020-07-24] MEDS: Cholecalciferol (D-3) 1,000 UNIT (25MCG) TABLET PO SCH (07:33)
[2020-07-24] MEDS: Gabapentin 300 MG CAPSULE PO SCH ×3 (07:33→21:59)
[2020-07-24] MEDS: Spironolactone 12.5 MG TABLET PO SCH (07:33)
[2020-07-24] MEDS: DilTIAZem CD (24hr) 240 MG CAP.ER.24H PO SCH (07:34)
[2020-07-24] MEDS: Insulin LISPRO 300 UNITS/3 ML VIAL SUBQ SCH ×3 (07:34→16:38)
[2020-07-24] MEDS: carvediloL 25 MG TABLET PO SCH ×2 (07:34→16:40)
[2020-07-24] MEDS: NATEGLINIDE 60 MG PO SCH ×3 (07:34→16:40)
[2020-07-24] MEDS: Furosemide 40 MG TABLET PO SCH (07:34)
[2020-07-24] MEDS: Apixaban 5 MG TABLET PO SCH ×2 (07:34→22:00)
[2020-07-24] MEDS: Nystatin POWDER 30 GM BOTTLE TP SCH ×3 (07:39→22:01)
[2020-07-24] MEDS: Acetaminophen 325 MG TABLET PO PRN ×2 (07:39→16:44)
[2020-07-24] MEDS: Insulin DETEMIR 100 UNIT/ML X5UNITS SUBQ SCH (09:39)
[2020-07-24] MEDS: Ondansetron ODT 4 MG TAB.RAPDIS PO PRN (09:42)
[2020-07-25] MEDS: *HR* OxyCODONE/APAP 10/325 TABLET PO PRN ×2 (06:21→15:56)
[2020-07-25] MEDS: lisinopriL 20 MG TABLET PO SCH (08:21)
[2020-07-25] MEDS: DilTIAZem CD (24hr) 240 MG CAP.ER.24H PO SCH (08:21)
[2020-07-25] MEDS: Spironolactone 12.5 MG TABLET PO SCH (08:21)
[2020-07-25] MEDS: Loratadine 10 MG TABLET PO SCH (08:21)
[2020-07-25] MEDS: Magnesium Oxide 400 MG TABLET PO SCH (08:21)
[2020-07-25] MEDS: Gabapentin 300 MG CAPSULE PO SCH ×3 (08:22→23:04)
[2020-07-25] MEDS: Cholecalciferol (D-3) 1,000 UNIT (25MCG) TABLET PO SCH (08:22)
[2020-07-25] MEDS: Sennosides/Docusate Sodium TABLET PO SCH (08:22)
[2020-07-25] MEDS: carvediloL 25 MG TABLET PO SCH ×2 (08:22→18:23)
[2020-07-25] MEDS: Apixaban 5 MG TABLET PO SCH ×2 (08:22→23:04)
[2020-07-25] MEDS: Insulin LISPRO 300 UNITS/3 ML VIAL SUBQ SCH ×3 (08:23→17:00)
[2020-07-25] MEDS: Nystatin POWDER 30 GM BOTTLE TP SCH ×3 (08:23→23:05)
[2020-07-25] MEDS: NATEGLINIDE 60 MG PO SCH ×3 (08:23→17:00)
[2020-07-25] MEDS: Insulin DETEMIR 100 UNIT/ML X5UNITS SUBQ SCH (08:37)
[2020-07-25] MEDS: Acetaminophen 325 MG TABLET PO PRN (12:01)
[2020-07-26 05:20] LABS: Calcium 8.7 mg/dL (8.6-10.3); Potassium 4.8 mEq/L (3.5-5.1)
[2020-07-26] MEDS: *HR* OxyCODONE/APAP 10/325 TABLET PO PRN ×2 (06:48→14:51)
[2020-07-26] MEDS: 0.9 % Sodium Chloride 1,000 ML IVC SCH ×2 (10:11→23:32)
[2020-07-26] MEDS: lisinopriL 20 MG TABLET PO SCH (10:12)
[2020-07-26] MEDS: Magnesium Oxide 400 MG TABLET PO SCH (10:12)
[2020-07-26] MEDS: Loratadine 10 MG TABLET PO SCH (10:12)
[2020-07-26] MEDS: DilTIAZem CD (24hr) 240 MG CAP.ER.24H PO SCH (10:12)
[2020-07-26] MEDS: Apixaban 5 MG TABLET PO SCH ×2 (10:12→20:22)
[2020-07-26] MEDS: Sennosides/Docusate Sodium TABLET PO SCH (10:13)
[2020-07-26] MEDS: Gabapentin 300 MG CAPSULE PO SCH ×3 (10:13→20:23)
[2020-07-26] MEDS: carvediloL 25 MG TABLET PO SCH ×2 (10:13→17:23)
[2020-07-26] MEDS: Cholecalciferol (D-3) 1,000 UNIT (25MCG) TABLET PO SCH (10:13)
[2020-07-26] MEDS: NATEGLINIDE 60 MG PO SCH ×3 (10:14→17:24)
[2020-07-26] MEDS: Nystatin POWDER 30 GM BOTTLE TP SCH ×3 (10:14→20:23)
[2020-07-26] MEDS: Insulin DETEMIR 100 UNIT/ML X5UNITS SUBQ SCH (10:17)
[2020-07-26] MEDS: Insulin LISPRO 300 UNITS/3 ML VIAL SUBQ SCH ×3 (10:18→16:33)
[2020-07-26] MEDS: Acetaminophen 325 MG TABLET PO PRN ×2 (10:26→23:05)
[2020-07-26] MEDS: *HR* LORazepam 0.5 MG TABLET PO PRN (14:51)
[2020-07-27 07:02] LABS: Calcium 8.2 mg/dL (8.6-10.3)
[2020-07-27] MEDS: Gabapentin 300 MG CAPSULE PO SCH ×3 (09:16→19:56)
[2020-07-27] MEDS: Magnesium Oxide 400 MG TABLET PO SCH (09:16)
[2020-07-27] MEDS: Sennosides/Docusate Sodium TABLET PO SCH (09:16)
[2020-07-27] MEDS: Loratadine 10 MG TABLET PO SCH (09:16)
[2020-07-27] MEDS: *HR* OxyCODONE/APAP 10/325 TABLET PO PRN ×2 (09:16→19:56)
[2020-07-27] MEDS: carvediloL 25 MG TABLET PO SCH ×2 (09:16→15:50)
[2020-07-27] MEDS: DilTIAZem CD (24hr) 240 MG CAP.ER.24H PO SCH (09:16)
[2020-07-27] MEDS: Apixaban 5 MG TABLET PO SCH ×2 (09:16→19:56)
[2020-07-27] MEDS: Cholecalciferol (D-3) 1,000 UNIT (25MCG) TABLET PO SCH (09:17)
[2020-07-27] MEDS: Insulin DETEMIR 100 UNIT/ML X5UNITS SUBQ SCH (09:17)
[2020-07-27] MEDS: polyethylene glycoL 3350 17 GM POWD.PACK PO PRN (09:26)
[2020-07-27] MEDS: Insulin LISPRO 300 UNITS/3 ML VIAL SUBQ SCH ×3 (09:27→16:42)
[2020-07-27] MEDS: NATEGLINIDE 60 MG PO SCH ×2 (12:05→16:41)
[2020-07-27] MEDS: Nystatin POWDER 30 GM BOTTLE TP SCH ×3 (12:05→20:01)
[2020-07-27] MEDS: 0.9 % Sodium Chloride 1,000 ML IVC SCH (14:03)
[2020-07-27] MEDS: *HR* LORazepam 0.5 MG TABLET PO PRN (15:57)
[2020-07-27] MEDS: Acetaminophen 325 MG TABLET PO PRN (15:57)
[2020-07-27 23:28] LABS: Bilirubin,Urine Negative (Negative); Blood,Urine Negative (Negative); Clarity,Urine Slightly Cloudy (Clear); Color,Urine Yellow (Yellow); Glucose,Urine (UA) Normal (Normal); Ketones,Urine Trace mg/dL (Negative); Leukocyte Esterase,Urine Trace (Negative); Nitrite,Urine Negative (Negative); PH,Urine 5.5 pH Units (5.0-8.0); Protein,Urine Negative (Neg-Trace); Urobilinogen,Urine Normal (Normal)
[2020-07-27 23:55] LABS: Bacteria,Urine Few per hpf (None-Few); Hyaline Casts,Urine Few per lpf (None Seen); Mucus,Urine Few per lpf (None-Few); RBC,Urine 0-3 per hpf (0-3); Squamous Epithelial Cell,Urine Few per hpf (None-Few)
[2020-07-27 23:57] LABS: WBC,Urine 15-30 per hpf (0-3)
[2020-07-28] MEDS: Acetaminophen 325 MG TABLET PO PRN ×2 (02:46→12:15)
[2020-07-28] MEDS: Furosemide 40 MG TABLET PO SCH ×2 (02:48→09:30)
[2020-07-28] MEDS: Spironolactone 12.5 MG TABLET PO SCH ×2 (02:48→09:30)
[2020-07-28] MEDS: *HR* OxyCODONE/APAP 10/325 TABLET PO PRN ×2 (05:41→17:00)
[2020-07-28 06:50] LABS: Basophils % 0.6 %; Eosinophils # 0.4 K/mcL (0.0-0.6); Hemoglobin 10.9 g/dL (11.5-15.4); Immature Granulocytes % 0.2 % (0-4); Lymphocytes # 1.7 K/mcL (0.6-4.6); Mean Corpuscular HGB Conc 31.1 g/dL (31.6-35.5); Mean Corpuscular Volume 106.1 fL (83.0-100.0); Monocytes # 0.5 K/mcL (0.0-1.3); Monocytes % 9.8 %; Neutrophils # 2.5 K/mcL (1.6-8.9); Platelet Count 156 K/mcL (140-400); Red Cell Distribution Width 13.2 % (11.5-14.5); Segmented Neutrophils % 49.4 %; White Blood Count 5.1 K/mcL (4.3-11.1)
[2020-07-28] MEDS: Insulin LISPRO 300 UNITS/3 ML VIAL SUBQ SCH ×3 (07:42→18:42)
[2020-07-28 08:11] LABS: Calcium 8.7 mg/dL (8.6-10.3)
[2020-07-28] MEDS: Cholecalciferol (D-3) 1,000 UNIT (25MCG) TABLET PO SCH (09:30)
[2020-07-28] MEDS: Sennosides/Docusate Sodium TABLET PO SCH (09:30)
[2020-07-28] MEDS: Magnesium Oxide 400 MG TABLET PO SCH (09:30)
[2020-07-28] MEDS: Insulin DETEMIR 100 UNIT/ML X5UNITS SUBQ SCH (09:30)
[2020-07-28] MEDS: carvediloL 25 MG TABLET PO SCH ×2 (09:30→17:00)
[2020-07-28] MEDS: lisinopriL 20 MG TABLET PO SCH (09:30)
[2020-07-28] MEDS: Loratadine 10 MG TABLET PO SCH (09:31)
[2020-07-28] MEDS: Nystatin POWDER 30 GM BOTTLE TP SCH ×3 (09:31→20:34)
[2020-07-28] MEDS: Gabapentin 300 MG CAPSULE PO SCH ×3 (09:31→20:34)
[2020-07-28] MEDS: DilTIAZem CD (24hr) 240 MG CAP.ER.24H PO SCH (09:31)
[2020-07-28] MEDS: Apixaban 5 MG TABLET PO SCH ×2 (09:31→20:34)
[2020-07-28] MEDS: NATEGLINIDE 60 MG PO SCH ×3 (09:31→18:43)
[2020-07-28] MEDS: *HR* LORazepam 0.5 MG TABLET PO PRN (12:15)
[2020-07-29] MEDS: *HR* OxyCODONE/APAP 10/325 TABLET PO PRN ×2 (05:05→19:50)
[2020-07-29] MEDS: Gabapentin 300 MG CAPSULE PO SCH ×3 (08:30→19:38)
[2020-07-29] MEDS: Sennosides/Docusate Sodium TABLET PO SCH (08:30)
[2020-07-29] MEDS: Magnesium Oxide 400 MG TABLET PO SCH (08:30)
[2020-07-29] MEDS: DilTIAZem CD (24hr) 240 MG CAP.ER.24H PO SCH (08:30)
[2020-07-29] MEDS: Cholecalciferol (D-3) 1,000 UNIT (25MCG) TABLET PO SCH (08:31)
[2020-07-29] MEDS: Furosemide 40 MG TABLET PO SCH (08:31)
[2020-07-29] MEDS: carvediloL 25 MG TABLET PO SCH ×2 (08:31→16:45)
[2020-07-29] MEDS: Loratadine 10 MG TABLET PO SCH (08:31)
[2020-07-29] MEDS: lisinopriL 20 MG TABLET PO SCH (08:31)
[2020-07-29] MEDS: Spironolactone 12.5 MG TABLET PO SCH (08:31)
[2020-07-29] MEDS: Nystatin POWDER 30 GM BOTTLE TP SCH ×3 (08:32→19:38)
[2020-07-29] MEDS: Apixaban 5 MG TABLET PO SCH ×2 (08:32→19:38)
[2020-07-29] MEDS: NATEGLINIDE 60 MG PO SCH ×3 (08:32→16:45)
[2020-07-29] MEDS: Insulin DETEMIR 100 UNIT/ML X5UNITS SUBQ SCH (08:37)
[2020-07-29] MEDS: Insulin LISPRO 300 UNITS/3 ML VIAL SUBQ SCH ×3 (08:37→16:45)
[2020-07-29] MEDS: *HR* LORazepam 0.5 MG TABLET PO PRN (12:24)
[2020-07-30] MEDS: Insulin LISPRO 300 UNITS/3 ML VIAL SUBQ SCH ×3 (07:36→17:05)
[2020-07-30] MEDS: Apixaban 5 MG TABLET PO SCH ×2 (11:18→20:29)
[2020-07-30] MEDS: Loratadine 10 MG TABLET PO SCH (11:19)
[2020-07-30] MEDS: Magnesium Oxide 400 MG TABLET PO SCH (11:19)
[2020-07-30] MEDS: carvediloL 25 MG TABLET PO SCH ×2 (11:19→15:46)
[2020-07-30] MEDS: DilTIAZem CD (24hr) 240 MG CAP.ER.24H PO SCH (11:19)
[2020-07-30] MEDS: Spironolactone 12.5 MG TABLET PO SCH (11:19)
[2020-07-30] MEDS: Gabapentin 300 MG CAPSULE PO SCH ×3 (11:19→20:29)
[2020-07-30] MEDS: *HR* OxyCODONE/APAP 10/325 TABLET PO PRN ×2 (11:19→20:36)
[2020-07-30] MEDS: Furosemide 40 MG TABLET PO SCH (11:19)
[2020-07-30] MEDS: Cholecalciferol (D-3) 1,000 UNIT (25MCG) TABLET PO SCH (11:19)
[2020-07-30] MEDS: lisinopriL 20 MG TABLET PO SCH (11:19)
[2020-07-30] MEDS: NATEGLINIDE 60 MG PO SCH ×3 (11:20→17:07)
[2020-07-30] MEDS: Insulin DETEMIR 100 UNIT/ML X5UNITS SUBQ SCH (11:20)
[2020-07-30] MEDS: Nystatin POWDER 30 GM BOTTLE TP SCH ×3 (11:20→20:30)
[2020-07-30] MEDS: Sennosides/Docusate Sodium TABLET PO SCH (11:29)
[2020-07-30] MEDS: Acetaminophen 325 MG TABLET PO PRN (15:46)
[2020-07-31] MEDS: *HR* OxyCODONE/APAP 10/325 TABLET PO PRN ×2 (05:55→16:40)
[2020-07-31] MEDS: Insulin LISPRO 300 UNITS/3 ML VIAL SUBQ SCH ×3 (07:18→16:41)
[2020-07-31] MEDS: Sennosides/Docusate Sodium TABLET PO SCH (07:49)
[2020-07-31] MEDS: NATEGLINIDE 60 MG PO SCH ×3 (07:49→16:46)
[2020-07-31] MEDS: Magnesium Oxide 400 MG TABLET PO SCH (07:59)
[2020-07-31] MEDS: Apixaban 5 MG TABLET PO SCH ×2 (07:59→22:22)
[2020-07-31] MEDS: Spironolactone 12.5 MG TABLET PO SCH (07:59)
[2020-07-31] MEDS: Gabapentin 300 MG CAPSULE PO SCH ×3 (07:59→22:22)
[2020-07-31] MEDS: Furosemide 40 MG TABLET PO SCH (07:59)
[2020-07-31] MEDS: DilTIAZem CD (24hr) 240 MG CAP.ER.24H PO SCH (07:59)
[2020-07-31] MEDS: lisinopriL 20 MG TABLET PO SCH (07:59)
[2020-07-31] MEDS: Loratadine 10 MG TABLET PO SCH (07:59)
[2020-07-31] MEDS: Insulin DETEMIR 100 UNIT/ML X5UNITS SUBQ SCH (08:00)
[2020-07-31] MEDS: Cholecalciferol (D-3) 1,000 UNIT (25MCG) TABLET PO SCH (08:00)
[2020-07-31] MEDS: Nystatin POWDER 30 GM BOTTLE TP SCH ×3 (08:00→22:32)
[2020-07-31] MEDS: carvediloL 25 MG TABLET PO SCH ×2 (08:00→16:40)
[2020-07-31] MEDS: Acetaminophen 325 MG TABLET PO PRN ×2 (10:17→22:30)
[2020-08-01] MEDS: *HR* OxyCODONE/APAP 10/325 TABLET PO PRN ×2 (06:48→16:16)
[2020-08-01] MEDS: Nystatin POWDER 30 GM BOTTLE TP SCH ×3 (07:56→21:29)
[2020-08-01] MEDS: Spironolactone 12.5 MG TABLET PO SCH (07:57)
[2020-08-01] MEDS: Loratadine 10 MG TABLET PO SCH (07:57)
[2020-08-01] MEDS: Cholecalciferol (D-3) 1,000 UNIT (25MCG) TABLET PO SCH (07:57)
[2020-08-01] MEDS: Furosemide 40 MG TABLET PO SCH (07:58)
[2020-08-01] MEDS: Magnesium Oxide 400 MG TABLET PO SCH (07:58)
[2020-08-01] MEDS: Gabapentin 300 MG CAPSULE PO SCH ×3 (07:59→21:12)
[2020-08-01] MEDS: Apixaban 5 MG TABLET PO SCH ×2 (07:59→21:12)
[2020-08-01] MEDS: carvediloL 25 MG TABLET PO SCH ×2 (07:59→16:16)
[2020-08-01] MEDS: Insulin LISPRO 300 UNITS/3 ML VIAL SUBQ SCH ×3 (07:59→16:17)
[2020-08-01] MEDS: DilTIAZem CD (24hr) 240 MG CAP.ER.24H PO SCH (07:59)
[2020-08-01] MEDS: Sennosides/Docusate Sodium TABLET PO SCH (07:59)
[2020-08-01] MEDS: lisinopriL 20 MG TABLET PO SCH (07:59)
[2020-08-01] MEDS: NATEGLINIDE 60 MG PO SCH ×3 (08:00→15:58)
[2020-08-01] MEDS: Ondansetron ODT 4 MG TAB.RAPDIS PO PRN (10:08)
[2020-08-01] MEDS: Insulin DETEMIR 100 UNIT/ML X5UNITS SUBQ SCH (10:09)
[2020-08-01] MEDS: Acetaminophen 325 MG TABLET PO PRN ×2 (11:31→21:13)
[2020-08-02] MEDS: *HR* OxyCODONE/APAP 10/325 TABLET PO PRN ×2 (04:16→13:37)
[2020-08-02] MEDS: Loratadine 10 MG TABLET PO SCH (08:37)
[2020-08-02] MEDS: Cholecalciferol (D-3) 1,000 UNIT (25MCG) TABLET PO SCH (08:37)
[2020-08-02] MEDS: Spironolactone 12.5 MG TABLET PO SCH (08:37)
[2020-08-02] MEDS: Sennosides/Docusate Sodium TABLET PO SCH (08:37)
[2020-08-02] MEDS: Furosemide 40 MG TABLET PO SCH (08:37)
[2020-08-02] MEDS: lisinopriL 20 MG TABLET PO SCH (08:37)
[2020-08-02] MEDS: Gabapentin 300 MG CAPSULE PO SCH ×3 (08:37→19:47)
[2020-08-02] MEDS: Insulin LISPRO 300 UNITS/3 ML VIAL SUBQ SCH ×3 (08:37→16:25)
[2020-08-02] MEDS: Magnesium Oxide 400 MG TABLET PO SCH (08:38)
[2020-08-02] MEDS: carvediloL 25 MG TABLET PO SCH ×2 (08:38→16:24)
[2020-08-02] MEDS: Acetaminophen 325 MG TABLET PO PRN ×2 (08:38→19:52)
[2020-08-02] MEDS: Insulin DETEMIR 100 UNIT/ML X5UNITS SUBQ SCH (08:38)
[2020-08-02] MEDS: Apixaban 5 MG TABLET PO SCH ×2 (08:38→19:47)
[2020-08-02] MEDS: DilTIAZem CD (24hr) 240 MG CAP.ER.24H PO SCH (08:38)
[2020-08-02] MEDS: Nystatin POWDER 30 GM BOTTLE TP SCH ×3 (08:39→19:48)
[2020-08-02] MEDS: NATEGLINIDE 60 MG PO SCH ×3 (08:39→16:07)
[2020-08-02] MEDS: *HR* LORazepam 0.5 MG TABLET PO PRN (16:24)
[2020-08-03] MEDS: *HR* OxyCODONE/APAP 10/325 TABLET PO PRN ×3 (02:13→20:19)
[2020-08-03] MEDS: Acetaminophen 325 MG TABLET PO PRN ×2 (05:11→14:28)
[2020-08-03] MEDS: Insulin LISPRO 300 UNITS/3 ML VIAL SUBQ SCH ×3 (07:30→16:42)
[2020-08-03] MEDS: lisinopriL 20 MG TABLET PO SCH (08:27)
[2020-08-03] MEDS: Cholecalciferol (D-3) 1,000 UNIT (25MCG) TABLET PO SCH (08:28)
[2020-08-03] MEDS: Sennosides/Docusate Sodium TABLET PO SCH (08:28)
[2020-08-03] MEDS: Gabapentin 300 MG CAPSULE PO SCH ×3 (08:28→20:20)
[2020-08-03] MEDS: Magnesium Oxide 400 MG TABLET PO SCH (08:28)
[2020-08-03] MEDS: carvediloL 25 MG TABLET PO SCH ×2 (08:28→16:59)
[2020-08-03] MEDS: Spironolactone 12.5 MG TABLET PO SCH (08:28)
[2020-08-03] MEDS: NATEGLINIDE 60 MG PO SCH ×3 (08:29→17:00)
[2020-08-03] MEDS: DilTIAZem CD (24hr) 240 MG CAP.ER.24H PO SCH (08:29)
[2020-08-03] MEDS: Loratadine 10 MG TABLET PO SCH (08:29)
[2020-08-03] MEDS: Furosemide 40 MG TABLET PO SCH (08:29)
[2020-08-03] MEDS: Apixaban 5 MG TABLET PO SCH ×2 (08:29→20:19)
[2020-08-03] MEDS: Insulin DETEMIR 100 UNIT/ML X5UNITS SUBQ SCH (08:30)
[2020-08-03] MEDS: Nystatin POWDER 30 GM BOTTLE TP SCH ×3 (08:30→20:21)
[2020-08-04] MEDS: *HR* OxyCODONE/APAP 10/325 TABLET PO PRN ×2 (05:35→14:59)
[2020-08-04] MEDS: Insulin LISPRO 300 UNITS/3 ML VIAL SUBQ SCH ×3 (07:27→16:53)
[2020-08-04] MEDS: Magnesium Oxide 400 MG TABLET PO SCH (08:52)
[2020-08-04] MEDS: Spironolactone 12.5 MG TABLET PO SCH (08:52)
[2020-08-04] MEDS: carvediloL 25 MG TABLET PO SCH ×2 (08:53→16:53)
[2020-08-04] MEDS: lisinopriL 20 MG TABLET PO SCH (08:53)
[2020-08-04] MEDS: Gabapentin 300 MG CAPSULE PO SCH ×3 (08:53→20:06)
[2020-08-04] MEDS: DilTIAZem CD (24hr) 240 MG CAP.ER.24H PO SCH (08:54)
[2020-08-04] MEDS: NATEGLINIDE 60 MG PO SCH ×3 (08:54→16:53)
[2020-08-04] MEDS: Acetaminophen 325 MG TABLET PO PRN ×2 (08:54→20:05)
[2020-08-04] MEDS: Nystatin POWDER 30 GM BOTTLE TP SCH ×3 (08:54→20:04)
[2020-08-04] MEDS: Furosemide 40 MG TABLET PO SCH (08:54)
[2020-08-04] MEDS: Apixaban 5 MG TABLET PO SCH ×2 (08:54→20:05)
[2020-08-04] MEDS: Cholecalciferol (D-3) 1,000 UNIT (25MCG) TABLET PO SCH (08:54)
[2020-08-04] MEDS: Loratadine 10 MG TABLET PO SCH (08:54)
[2020-08-04] MEDS: Sennosides/Docusate Sodium TABLET PO SCH (08:55)
[2020-08-04] MEDS: Insulin DETEMIR 100 UNIT/ML X5UNITS SUBQ SCH (08:55)
[2020-08-04] MEDS: *HR* LORazepam 0.5 MG TABLET PO PRN (09:03)
[2020-08-05] MEDS: *HR* OxyCODONE/APAP 10/325 TABLET PO PRN ×2 (03:58→13:38)
[2020-08-05 06:48] VITALS: BP 158/84
[2020-08-05] MEDS: Insulin LISPRO 300 UNITS/3 ML VIAL SUBQ SCH ×2 (07:32→11:48)
[2020-08-05] MEDS: Nystatin POWDER 30 GM BOTTLE TP SCH (09:17)
[2020-08-05] MEDS: Acetaminophen 325 MG TABLET PO PRN (09:18)
[2020-08-05] MEDS: Gabapentin 300 MG CAPSULE PO SCH (09:19)
[2020-08-05] MEDS: Spironolactone 12.5 MG TABLET PO SCH (09:19)
[2020-08-05] MEDS: Magnesium Oxide 400 MG TABLET PO SCH (09:19)
[2020-08-05] MEDS: Sennosides/Docusate Sodium TABLET PO SCH (09:19)
[2020-08-05] MEDS: lisinopriL 20 MG TABLET PO SCH (09:21)
[2020-08-05] MEDS: Apixaban 5 MG TABLET PO SCH (09:21)
[2020-08-05] MEDS: DilTIAZem CD (24hr) 240 MG CAP.ER.24H PO SCH (09:21)
[2020-08-05] MEDS: carvediloL 25 MG TABLET PO SCH (09:21)
[2020-08-05] MEDS: Loratadine 10 MG TABLET PO SCH (09:22)
[2020-08-05] MEDS: NATEGLINIDE 60 MG PO SCH ×2 (09:22→11:48)
[2020-08-05] MEDS: Cholecalciferol (D-3) 1,000 UNIT (25MCG) TABLET PO SCH (09:22)
[2020-08-05] MEDS: Insulin DETEMIR 100 UNIT/ML X5UNITS SUBQ SCH (09:23)
[2020-08-05] MEDS: Furosemide 40 MG TABLET PO SCH (09:23)
== END 2020-08-05 15:00 | disposition home health service (06) | DRG 559 ==
LOC: INPPIK 16:17
PROVIDERS: ADMIT Family Medicine; ATTEND Family Medicine

== ENCOUNTER 2020-08-30 13:43 | Inpatient (IN) ==
[2020-08-30] MEDS ORDERED: *HR* Dextrose 50 % in Water (Vial) 50 ML VIAL IVP PRN (16:47)
[2020-08-30] MEDS ORDERED: D5% in Water 1,000 ML IVC PRN (16:47)
[2020-08-30] MEDS ORDERED: Dextrose Gel 15 GM/37.5 ML TUBE PO PRN ×2 (16:47)
[2020-08-30] MEDS: Gabapentin 300 MG CAPSULE PO SCH (17:57)
[2020-08-30] MEDS: *HR* OxyCODONE Immed Rel 5 MG TABLET PO PRN (17:57)
[2020-08-30] MEDS ORDERED: Gabapentin 300 MG CAPSULE PO SCH (21:00)
[2020-08-30] MEDS ORDERED: NON-FORMULARY MEDICATION 1 EACH EACH (Potassium Chloride [K-Tab Er] 20 MEQ Tablet.Er) PO SCH (21:00)
[2020-08-30] MEDS: carvediloL 25 MG TABLET PO SCH (21:13)
[2020-08-30] MEDS: Sennosides/Docusate Sodium TABLET PO SCH (21:13)
[2020-08-30] MEDS: Apixaban 5 MG TABLET PO SCH (21:13)
[2020-08-30] MEDS: Insulin LISPRO 300 UNITS/3 ML VIAL SUBQ SCH (21:13)
[2020-08-31] MEDS: *HR* OxyCODONE Immed Rel 5 MG TABLET PO PRN ×3 (01:57→16:23)
[2020-08-31] MEDS: Gabapentin 300 MG CAPSULE PO SCH ×2 (06:15→16:19)
[2020-08-31 06:58] LABS: Basophils % 0.4 %; Eosinophils # 0.2 K/mcL (0.0-0.6); Eosinophils % 4.5 %; Hematocrit 35.9 % (35.3-44.9); Hemoglobin 11.4 g/dL (11.5-15.4); Immature Granulocytes % 0.6 % (0-4); Lymphocytes # 1.6 K/mcL (0.6-4.6); Lymphocytes % 33.1 %; Mean Corpuscular HGB Conc 31.8 g/dL (31.6-35.5); Mean Corpuscular Hemoglobin 32.4 pg (28.0-33.3); Mean Platelet Volume 10.8 fL (9.4-12.4); Monocytes # 0.4 K/mcL (0.0-1.3); Neutrophils # 2.6 K/mcL (1.6-8.9); Platelet Count 209 K/mcL (140-400); Red Blood Count 3.52 M/mcL (3.82-4.97); Red Cell Distribution Width 12.5 % (11.5-14.5); Segmented Neutrophils % 52.4 %; White Blood Count 4.9 K/mcL (4.3-11.1)
[2020-08-31 08:00] LABS: Calcium 8.4 mg/dL (8.6-10.3); Potassium 4.2 mEq/L (3.5-5.1)
[2020-08-31] MEDS: carvediloL 25 MG TABLET PO SCH ×2 (08:48→20:23)
[2020-08-31] MEDS: DilTIAZem CD (24hr) 240 MG CAP.ER.24H PO SCH (08:49)
[2020-08-31] MEDS: Apixaban 5 MG TABLET PO SCH ×2 (08:49→20:23)
[2020-08-31] MEDS: Sennosides/Docusate Sodium TABLET PO SCH ×2 (08:49→20:48)
[2020-08-31] MEDS: Loratadine 10 MG TABLET PO SCH (08:49)
[2020-08-31] MEDS: Insulin LISPRO 300 UNITS/3 ML VIAL SUBQ SCH ×4 (08:50→20:48)
[2020-08-31] MEDS ORDERED: SOLIFENACIN SUCCINATE 5 MG PO SCH (09:00)
[2020-08-31] MEDS ORDERED: Spironolactone 12.5 MG TABLET PO SCH (09:00)
[2020-08-31] MEDS ORDERED: NON-FORMULARY MEDICATION 1 EACH EACH (Duloxetine Hcl [Cymbalta] 60 MG Capsule.Dr) PO SCH (09:00)
[2020-08-31] MEDS: Acetaminophen 325 MG TABLET PO PRN (20:23)
[2020-09-01] MEDS: *HR* OxyCODONE/APAP 7.5/325 TABLET PO PRN (04:59)
[2020-09-01] MEDS: Gabapentin 300 MG CAPSULE PO SCH ×2 (04:59→16:21)
[2020-09-01] MEDS: Insulin LISPRO 300 UNITS/3 ML VIAL SUBQ SCH ×4 (08:56→19:59)
[2020-09-01] MEDS: Acetaminophen 325 MG TABLET PO PRN (08:59)
[2020-09-01] MEDS: Loratadine 10 MG TABLET PO SCH (09:00)
[2020-09-01] MEDS: Apixaban 5 MG TABLET PO SCH ×2 (09:00→19:59)
[2020-09-01] MEDS: DilTIAZem CD (24hr) 240 MG CAP.ER.24H PO SCH (09:00)
[2020-09-01] MEDS: Sennosides/Docusate Sodium TABLET PO SCH ×2 (09:01→19:59)
[2020-09-01] MEDS: carvediloL 25 MG TABLET PO SCH ×2 (09:01→16:21)
[2020-09-01] MEDS: Insulin DETEMIR 100 UNIT/ML X5UNITS SUBQ SCH ×2 (09:01→19:59)
[2020-09-01] MEDS: Ondansetron ODT 4 MG TAB.RAPDIS SL PRN (11:29)
[2020-09-01] MEDS: *HR* OxyCODONE/APAP 5/325 TABLET PO PRN ×2 (12:14→19:59)
[2020-09-01] MEDS ORDERED: Insulin DETEMIR 100 UNIT/ML per UNIT SUBQ ONE (19:32)
[2020-09-02] MEDS: Gabapentin 300 MG CAPSULE PO SCH ×2 (05:39→16:58)
[2020-09-02] MEDS: *HR* OxyCODONE/APAP 7.5/325 TABLET PO PRN ×3 (05:41→21:07)
[2020-09-02] MEDS: Insulin LISPRO 300 UNITS/3 ML VIAL SUBQ SCH ×4 (07:37→21:07)
[2020-09-02] MEDS ORDERED: carvediloL 25 MG TABLET PO SCH (08:00)
[2020-09-02] MEDS: Insulin DETEMIR 100 UNIT/ML X5UNITS SUBQ SCH ×2 (08:56→21:07)
[2020-09-02] MEDS: Loratadine 10 MG TABLET PO SCH (09:02)
[2020-09-02] MEDS: Apixaban 5 MG TABLET PO SCH ×2 (09:02→21:07)
[2020-09-02] MEDS: Sennosides/Docusate Sodium TABLET PO SCH ×2 (09:02→21:06)
[2020-09-02] MEDS: carvediloL 25 MG TABLET PO SCH ×2 (09:02→16:58)
[2020-09-02] MEDS: DilTIAZem CD (24hr) 240 MG CAP.ER.24H PO SCH (09:02)
[2020-09-02] MEDS: Acetaminophen 325 MG TABLET PO PRN ×2 (09:04→16:58)
[2020-09-03] MEDS: Gabapentin 300 MG CAPSULE PO SCH ×2 (06:14→17:11)
[2020-09-03] MEDS: Insulin LISPRO 300 UNITS/3 ML VIAL SUBQ SCH ×4 (08:04→20:57)
[2020-09-03] MEDS: *HR* OxyCODONE/APAP 5/325 TABLET PO PRN (08:16)
[2020-09-03] MEDS: carvediloL 25 MG TABLET PO SCH ×2 (08:16→16:25)
[2020-09-03] MEDS: DilTIAZem CD (24hr) 240 MG CAP.ER.24H PO SCH (08:17)
[2020-09-03] MEDS: Sennosides/Docusate Sodium TABLET PO SCH ×2 (08:17→20:56)
[2020-09-03] MEDS: Apixaban 5 MG TABLET PO SCH ×2 (08:17→20:56)
[2020-09-03] MEDS: Loratadine 10 MG TABLET PO SCH (08:17)
[2020-09-03] MEDS: Insulin DETEMIR 100 UNIT/ML X5UNITS SUBQ SCH ×2 (08:18→20:56)
[2020-09-03] MEDS: Ondansetron ODT 4 MG TAB.RAPDIS SL PRN (10:24)
[2020-09-03] MEDS: Acetaminophen 325 MG TABLET PO PRN (12:06)
[2020-09-03] MEDS: *HR* OxyCODONE/APAP 7.5/325 TABLET PO PRN ×2 (14:46→20:55)
[2020-09-03] MEDS ORDERED: Insulin DETEMIR 100 UNIT/ML per UNIT SUBQ ONE (20:54)
[2020-09-04] MEDS: Gabapentin 300 MG CAPSULE PO SCH ×2 (04:46→17:44)
[2020-09-04] MEDS: *HR* OxyCODONE/APAP 5/325 TABLET PO PRN (04:50)
[2020-09-04] MEDS: Apixaban 5 MG TABLET PO SCH ×2 (08:36→21:27)
[2020-09-04] MEDS: Sennosides/Docusate Sodium TABLET PO SCH ×2 (08:36→21:27)
[2020-09-04] MEDS: carvediloL 25 MG TABLET PO SCH ×2 (08:36→17:44)
[2020-09-04] MEDS: Loratadine 10 MG TABLET PO SCH (08:36)
[2020-09-04] MEDS: DilTIAZem CD (24hr) 240 MG CAP.ER.24H PO SCH (08:36)
[2020-09-04] MEDS: Insulin DETEMIR 100 UNIT/ML X5UNITS SUBQ SCH (08:37)
[2020-09-04] MEDS: Insulin LISPRO 300 UNITS/3 ML VIAL SUBQ SCH ×4 (08:37→21:28)
[2020-09-04] MEDS: *HR* OxyCODONE/APAP 7.5/325 TABLET PO PRN (11:21)
[2020-09-05] MEDS: Gabapentin 300 MG CAPSULE PO SCH ×2 (05:48→17:37)
[2020-09-05] MEDS: *HR* OxyCODONE/APAP 7.5/325 TABLET PO PRN ×3 (05:48→20:05)
[2020-09-05] MEDS: Insulin LISPRO 300 UNITS/3 ML VIAL SUBQ SCH ×4 (07:44→20:05)
[2020-09-05] MEDS: carvediloL 25 MG TABLET PO SCH ×2 (08:52→17:37)
[2020-09-05] MEDS: Sennosides/Docusate Sodium TABLET PO SCH ×2 (08:52→20:05)
[2020-09-05] MEDS: Apixaban 5 MG TABLET PO SCH ×2 (08:53→20:05)
[2020-09-05] MEDS: DilTIAZem CD (24hr) 240 MG CAP.ER.24H PO SCH (08:53)
[2020-09-05] MEDS: Loratadine 10 MG TABLET PO SCH (08:54)
[2020-09-06] MEDS: *HR* OxyCODONE/APAP 7.5/325 TABLET PO PRN ×4 (02:08→22:46)
[2020-09-06] MEDS: Gabapentin 300 MG CAPSULE PO SCH ×2 (06:14→16:39)
[2020-09-06] MEDS: Acetaminophen 325 MG TABLET PO PRN ×2 (06:35→12:17)
[2020-09-06 07:42] LABS: Basophils % 0.6 %; Eosinophils # 0.2 K/mcL (0.0-0.6); Eosinophils % 5.1 %; Hematocrit 35.9 % (35.3-44.9); Hemoglobin 11.3 g/dL (11.5-15.4); Immature Granulocytes % 0.2 % (0-4); Lymphocytes # 1.6 K/mcL (0.6-4.6); Lymphocytes % 34.6 %; Mean Corpuscular HGB Conc 31.5 g/dL (31.6-35.5); Mean Corpuscular Hemoglobin 32.3 pg (28.0-33.3); Mean Corpuscular Volume 102.6 fL (83.0-100.0); Mean Platelet Volume 10.5 fL (9.4-12.4); Monocytes # 0.4 K/mcL (0.0-1.3); Monocytes % 9.1 %; Neutrophils # 2.4 K/mcL (1.6-8.9); Platelet Count 201 K/mcL (140-400); Red Cell Distribution Width 12.9 % (11.5-14.5); Segmented Neutrophils % 50.4 %; White Blood Count 4.7 K/mcL (4.3-11.1)
[2020-09-06 08:12] LABS: Calcium 8.3 mg/dL (8.6-10.3); Potassium 4.5 mEq/L (3.5-5.1)
[2020-09-06] MEDS: Insulin LISPRO 300 UNITS/3 ML VIAL SUBQ SCH ×4 (08:45→22:41)
[2020-09-06] MEDS: carvediloL 25 MG TABLET PO SCH ×2 (09:01→16:39)
[2020-09-06] MEDS: Sennosides/Docusate Sodium TABLET PO SCH ×2 (09:01→22:46)
[2020-09-06] MEDS: Apixaban 5 MG TABLET PO SCH ×2 (09:01→22:46)
[2020-09-06] MEDS: DilTIAZem CD (24hr) 240 MG CAP.ER.24H PO SCH (09:02)
[2020-09-06] MEDS: Loratadine 10 MG TABLET PO SCH (09:02)
[2020-09-07] MEDS: Gabapentin 300 MG CAPSULE PO SCH ×2 (05:28→17:37)
[2020-09-07] MEDS: *HR* OxyCODONE/APAP 7.5/325 TABLET PO PRN ×3 (05:28→21:04)
[2020-09-07] MEDS: Insulin LISPRO 300 UNITS/3 ML VIAL SUBQ SCH ×4 (07:40→21:05)
[2020-09-07] MEDS: carvediloL 25 MG TABLET PO SCH ×2 (10:04→17:37)
[2020-09-07] MEDS: Loratadine 10 MG TABLET PO SCH (10:04)
[2020-09-07] MEDS: DilTIAZem CD (24hr) 240 MG CAP.ER.24H PO SCH (10:04)
[2020-09-07] MEDS: Apixaban 5 MG TABLET PO SCH ×2 (10:05→21:04)
[2020-09-07] MEDS: Acetaminophen 325 MG TABLET PO PRN (10:10)
[2020-09-07] MEDS: Sennosides/Docusate Sodium TABLET PO SCH ×2 (10:10→21:04)
[2020-09-08] MEDS: *HR* OxyCODONE/APAP 7.5/325 TABLET PO PRN ×2 (05:30→17:24)
[2020-09-08] MEDS: Gabapentin 300 MG CAPSULE PO SCH ×2 (05:30→17:18)
[2020-09-08] MEDS ORDERED: Insulin DETEMIR 100 UNIT/ML per UNIT SUBQ ONE (07:55)
[2020-09-08] MEDS: carvediloL 25 MG TABLET PO SCH ×2 (08:20→17:18)
[2020-09-08] MEDS: Sennosides/Docusate Sodium TABLET PO SCH ×2 (08:20→20:56)
[2020-09-08] MEDS: DilTIAZem CD (24hr) 240 MG CAP.ER.24H PO SCH (08:20)
[2020-09-08] MEDS: Insulin LISPRO 300 UNITS/3 ML VIAL SUBQ SCH ×4 (08:21→21:04)
[2020-09-08] MEDS: Apixaban 5 MG TABLET PO SCH ×2 (08:21→21:04)
[2020-09-08] MEDS: Loratadine 10 MG TABLET PO SCH (08:21)
[2020-09-09] MEDS: *HR* OxyCODONE/APAP 7.5/325 TABLET PO PRN ×3 (00:07→23:49)
[2020-09-09] MEDS: Gabapentin 300 MG CAPSULE PO SCH ×2 (06:29→17:15)
[2020-09-09] MEDS: Insulin LISPRO 300 UNITS/3 ML VIAL SUBQ SCH ×4 (07:27→21:29)
[2020-09-09] MEDS: carvediloL 25 MG TABLET PO SCH ×2 (09:47→17:15)
[2020-09-09] MEDS: Loratadine 10 MG TABLET PO SCH (09:47)
[2020-09-09] MEDS: DilTIAZem CD (24hr) 240 MG CAP.ER.24H PO SCH (09:47)
[2020-09-09] MEDS: Sennosides/Docusate Sodium TABLET PO SCH (09:48)
[2020-09-09] MEDS: Apixaban 5 MG TABLET PO SCH ×2 (09:48→21:29)
[2020-09-09 17:10] LABS: Basophils % 0.4 %; Eosinophils # 0.2 K/mcL (0.0-0.6); Eosinophils % 4.8 %; Hematocrit 37.6 % (35.3-44.9); Hemoglobin 11.9 g/dL (11.5-15.4); Immature Granulocytes % 0.2 % (0-4); Mean Corpuscular HGB Conc 31.6 g/dL (31.6-35.5); Mean Corpuscular Hemoglobin 32.2 pg (28.0-33.3); Mean Corpuscular Volume 101.6 fL (83.0-100.0); Monocytes # 0.4 K/mcL (0.0-1.3); Monocytes % 8.4 %; Neutrophils # 2.9 K/mcL (1.6-8.9); Platelet Count 180 K/mcL (140-400); Red Cell Distribution Width 13.2 % (11.5-14.5); Segmented Neutrophils % 64.2 %; White Blood Count 4.5 K/mcL (4.3-11.1)
[2020-09-09 17:28] LABS: Calcium 8.5 mg/dL (8.6-10.3); Potassium 4.5 mEq/L (3.5-5.1)
[2020-09-10] MEDS: *HR* OxyCODONE/APAP 7.5/325 TABLET PO PRN (05:59)
[2020-09-10] MEDS: Gabapentin 300 MG CAPSULE PO SCH (05:59)
[2020-09-10 07:10] VITALS: BP 160/85
[2020-09-10] MEDS: Insulin LISPRO 300 UNITS/3 ML VIAL SUBQ SCH (07:27)
[2020-09-10] MEDS: carvediloL 25 MG TABLET PO SCH (09:42)
[2020-09-10] MEDS: DilTIAZem CD (24hr) 240 MG CAP.ER.24H PO SCH (09:42)
[2020-09-10] MEDS: Apixaban 5 MG TABLET PO SCH (09:42)
[2020-09-10] MEDS: Loratadine 10 MG TABLET PO SCH (09:42)
== END 2020-09-10 12:15 | disposition home health service (06) | DRG 560 ==
LOC: INPPIK 13:54
PROVIDERS: ADMIT Family Medicine; ATTEND Family Medicine

== ENCOUNTER 2020-10-27 12:17 | Observation (INO) ==
[2020-10-27 12:55] LABS: Bilirubin,Urine Negative (Negative); Blood,Urine Trace-intact (Negative); Clarity,Urine Slightly Cloudy (Clear); Color,Urine Yellow (Yellow); Glucose,Urine (UA) >=1000 mg/dL (Normal); Ketones,Urine Negative (Negative); Leukocyte Esterase,Urine Negative (Negative); Nitrite,Urine Negative (Negative); Protein,Urine 30 mg/dL (Neg-Trace); Urobilinogen,Urine Normal (Normal)
[2020-10-27 13:27] LABS: Basophils % 0.3 %; Eosinophils # 0.2 K/mcL (0.0-0.6); Eosinophils % 5.7 %; Hematocrit 34.9 % (35.3-44.9); Hemoglobin 10.8 g/dL (11.5-15.4); Immature Granulocytes % 0.5 % (0-4); Lymphocytes # 0.8 K/mcL (0.6-4.6); Lymphocytes % 19.4 %; Mean Corpuscular HGB Conc 30.9 g/dL (31.6-35.5); Mean Corpuscular Hemoglobin 31.4 pg (28.0-33.3); Mean Corpuscular Volume 101.5 fL (83.0-100.0); Mean Platelet Volume 10.4 fL (9.4-12.4); Monocytes # 0.3 K/mcL (0.0-1.3); Monocytes % 7.2 %; Neutrophils # 2.6 K/mcL (1.6-8.9); Platelet Count 151 K/mcL (140-400); Red Blood Count 3.44 M/mcL (3.82-4.97); Red Cell Distribution Width 14.8 % (11.5-14.5); Segmented Neutrophils % 66.9 %; White Blood Count 3.9 K/mcL (4.3-11.1)
[2020-10-27 13:34] LABS: INR 1.6; Prothrombin Time 18.5 Seconds (9.4-12.1)
[2020-10-27 13:39] LABS: Bacteria,Urine Few per hpf (None-Few); WBC,Urine 50-100 per hpf (0-3)
[2020-10-27 13:47] LABS: BUN/Creatinine Ratio 16 (6-26); Blood Urea Nitrogen 24 mg/dL (8-23); Calcium 8.3 mg/dL (8.6-10.3); Carbon Dioxide 27 mEq/L (23-29); Chloride 104 mEq/L (98-107); Glucose 421 mg/dL (70-105); Osmolality,Calculated 306 (280-300); Potassium 4.4 mEq/L (3.5-5.1); Sodium 137 mEq/L (136-145); Troponin I < 0.03 ng/mL (< 0.04); eGFR For African Americans 42 (> 60); eGFR For Non-African Americans 34 (> 60)
[2020-10-27] MEDS ORDERED: Naloxone 0.4 MG/ML INJ IVP PRN (14:22)
[2020-10-27] MEDS ORDERED: Ondansetron 4 MG/2 ML VIAL IVP PRN (14:22)
[2020-10-27] MEDS ORDERED: Acetaminophen 325 MG TABLET PO PRN (14:22)
[2020-10-27] MEDS ORDERED: Ipratropium/Albuterol Neb 3 ML IH PRN (14:44)
[2020-10-27] MEDS ORDERED: Dextrose Gel 15 GM/37.5 ML TUBE PO PRN ×2 (14:48)
[2020-10-27] MEDS ORDERED: *HR* Dextrose 50 % in Water (Vial) 50 ML VIAL IVP PRN (14:48)
[2020-10-27] MEDS ORDERED: D5% in Water 1,000 ML IVC PRN (14:48)
[2020-10-27] MEDS ORDERED: cefTRIAXone 2,000 MG in 0.9 % Sodium Chloride Mini Bag 100 ML IVPB SCH (15:00)
[2020-10-27] MEDS: Gabapentin 300 MG CAPSULE PO SCH ×2 (15:48→20:52)
[2020-10-27] MEDS: Azithromycin 500 MG in 0.9 % Sodium Chloride 250 ML IVPB SCH (15:48)
[2020-10-27] MEDS: cefTRIAXone 2,000 MG in Water for inj. (sterile) 20 ML IVP SCH (15:49)
[2020-10-27] MEDS: Furosemide 20 MG/2 ML VIAL IVP SCH (15:49)
[2020-10-27] MEDS: Insulin LISPRO 300 UNITS/3 ML VIAL SUBQ SCH (16:05)
[2020-10-27] MEDS: *HR* OxyCODONE/APAP 7.5/325 TABLET PO PRN (16:56)
[2020-10-27] MEDS: Apixaban 5 MG TABLET PO SCH (20:52)
[2020-10-27] MEDS: carvediloL 25 MG TABLET PO SCH (20:52)
[2020-10-27] MEDS: Budesonide/Formoterol 160/4.5 1 PUFF INH IH SCH (20:59)
[2020-10-27] MEDS ORDERED: Insulin LISPRO 300 UNITS/3 ML VIAL SUBQ SCH (21:00)
[2020-10-27 21:48] LABS: Adenovirus Not Detected (Not Detect); Bordetella Pertussis Not Detected (Not Detect); Chlamydophila pneumoniae Not Detected (Not Detect); Coronavirus 229E Not Detected (Not Detect); Coronavirus HKU1 Not Detected (Not Detect); Coronavirus NL63 Not Detected (Not Detect); Coronavirus OC43 Not Detected (Not Detect); Human Metapneumovirus Not Detected (Not Detect); Human Rhinovirus/Enterovirus Not Detected (Not Detect); Influenza A Subtype 2009 H1 Not Detected (Not Detect); Influenza B Not Detected (Not Detect); Mycoplasma pneumoniae Not Detected (Not Detect); Parainfluenza Virus 1 Not Detected (Not Detect); Parainfluenza Virus 2 Not Detected (Not Detect); Parainfluenza Virus 3 Not Detected (Not Detect); Parainfluenza Virus 4 Not Detected (Not Detect); Respiratory Syncytial Virus Not Detected (Not Detect); SARS-CoV-2 Not Detected (Not Detect)
[2020-10-28 07:04] LABS: Hematocrit 32.8 % (35.3-44.9); Hemoglobin 10.3 g/dL (11.5-15.4); Mean Corpuscular HGB Conc 31.4 g/dL (31.6-35.5); Mean Corpuscular Hemoglobin 31.6 pg (28.0-33.3); Mean Corpuscular Volume 100.6 fL (83.0-100.0); Platelet Count 151 K/mcL (140-400); Red Blood Count 3.26 M/mcL (3.82-4.97); Red Cell Distribution Width 14.4 % (11.5-14.5); White Blood Count 2.7 K/mcL (4.3-11.1)
[2020-10-28] MEDS: Insulin LISPRO 300 UNITS/3 ML VIAL SUBQ SCH ×2 (07:12→11:40)
[2020-10-28 07:18] VITALS: BP 159/92
[2020-10-28 07:20] LABS: Calcium 8.2 mg/dL (8.6-10.3); Magnesium 1.7 mg/dL (1.6-2.6); Potassium 3.7 mEq/L (3.5-5.1)
[2020-10-28] MEDS ORDERED: DilTIAZem CD (24hr) 240 MG CAP.ER.24H PO SCH (09:00)
[2020-10-28] MEDS ORDERED: Loratadine 10 MG TABLET PO SCH (09:00)
[2020-10-28] MEDS: Apixaban 5 MG TABLET PO SCH (09:03)
[2020-10-28] MEDS: carvediloL 25 MG TABLET PO SCH (09:04)
[2020-10-28] MEDS: Gabapentin 300 MG CAPSULE PO SCH ×2 (09:04→14:20)
[2020-10-28] MEDS: Furosemide 20 MG/2 ML VIAL IVP SCH ×2 (09:04→17:31)
[2020-10-28] MEDS: *HR* OxyCODONE/APAP 7.5/325 TABLET PO PRN ×2 (09:13→15:28)
[2020-10-28] MEDS: Budesonide/Formoterol 160/4.5 1 PUFF INH IH SCH (10:58)
[2020-10-28] MEDS: cefTRIAXone 2,000 MG in Water for inj. (sterile) 20 ML IVP SCH (14:20)
[2020-10-28] MEDS: Azithromycin 500 MG in 0.9 % Sodium Chloride 250 ML IVPB SCH (14:20)
== END 2020-10-28 19:35 ==
LOC: INPPIK 12:17 → EMEROOPIK 12:17 → INPPIK 15:00
PROVIDERS: ADMIT Family Medicine; ATTEND Family Medicine